=== PATIENT | male | born 1940 | race Caucasian/White ===

== ENCOUNTER → 2020-06-27 11:42 | Outpatient (BNVA) | payer MEDICARE, SELFPAY | PROVIDERS: PCP Internal Medicine; Referring Provider Internal Medicine; Visit Provider Internal Medicine Endocrinology, Diabetes & Metabolism | DX: E21.0 Primary hyperparathyroidism (principal); E04.2 Nontoxic multinodular goiter; M85.859 Other specified disorders of bone density and structure, unspecified thigh; Z79.899 Other long term (current) drug therapy | CPT/HCPCS: 99214 ==

== ENCOUNTER → 2020-09-05 09:03 | Outpatient (BNVA) | payer MEDICARE, SELFPAY | PROVIDERS: PCP Internal Medicine; Visit Provider Internal Medicine Endocrinology, Diabetes & Metabolism | DX: Z13.89 Encounter for screening for other disorder (principal) | CPT/HCPCS: Q3014 ==

== ENCOUNTER → 2020-10-03 10:14 | Outpatient (BNVA) | payer MEDICARE, SELFPAY | PROVIDERS: PCP Internal Medicine; Visit Provider Orthopaedic Surgery | DX: Z47.1 Aftercare following joint replacement surgery (principal); Z96.652 Presence of left artificial knee joint | CPT/HCPCS: 99212 ==

== ENCOUNTER → 2020-12-13 08:01 | Outpatient (BNVA) | payer MEDICARE, SELFPAY | PROVIDERS: PCP Internal Medicine; Visit Provider Internal Medicine Endocrinology, Diabetes & Metabolism | DX: E21.0 Primary hyperparathyroidism (principal); E04.2 Nontoxic multinodular goiter; M85.80 Other specified disorders of bone density and structure, unspecified site | CPT/HCPCS: 99212 ==

== ENCOUNTER 2020-12-13 09:05 | Outpatient (REF) | payer MEDICARE, SELFPAY ==
[2020-12-13 10:46] LABS: Alanine Aminotransferase 21 U/L (0-40); Albumin Level 4.3 g/dL (3.5-5.0); Alkaline Phosphatase 75 U/L (39-117); Anion Gap 15 (12-20); Aspartate Amino Transferase 21 U/L (5-37); Bilirubin Total 0.5 mg/dL (0.0-1.0); Blood Urea Nitrogen 30 mg/dL (9-16); Calcium 9.1 mg/dL (8.4-10.2); Carbon Dioxide 26 mmol/L (22-29); Chloride 105 mmol/L (96-108); Estimated Glomerular Filt Rate > 60; Glucose Fasting 87 mg/dL (60-99); Magnesium 2.1 mg/dL (1.6-2.6); Phosphorus 3.7 mg/dL (2.7-4.5); Potassium 4.8 mmol/L (3.3-5.1); Sodium 141 mmol/L (135-145); Total Protein 6.6 g/dL (6.5-8.0)
[2020-12-13 11:08] LABS: Vitamin D 25-OH Total 45.8 ng/mL (>30)
[2020-12-14 18:41] LABS: Calcium (PTHI) 9.1 mg/dL (8.6-10.3); PTHI 37 pg/mL (14-64)
== END 2020-12-13 09:06 | disposition home or self-care (01) ==
LOC: HO.10HDL 09:05
PROVIDERS: Visit Provider Internal Medicine Endocrinology, Diabetes & Metabolism
DX: E21.0 Primary hyperparathyroidism (principal)
CPT/HCPCS: 36415; 80053; 82306; 83735; 83970; 84100

== ENCOUNTER 2021-07-04 10:20 | Outpatient (REF) | payer MEDICARE, SELFPAY ==
[2021-07-04 14:31] LABS: Albumin Level 4.4 g/dL (3.5-5.0); Calcium 8.9 mg/dL (8.4-10.2); Magnesium 2.2 mg/dL (1.6-2.6); Phosphorus 3.8 mg/dL (2.7-4.5)
[2021-07-05 15:46] LABS: PTHI 26 pg/mL (14-64)
[2021-07-09 01:02] LABS: VITAMIN D (1,25 OH) D3 42 pg/mL; Vit D (1,25-Dihydroxy) Total 42 pg/mL (18-72); Vitamin D (1,25 OH) D2 <8 pg/mL
== END 2021-07-04 10:21 | disposition home or self-care (01) ==
LOC: HO.HMGCLDS 10:20
PROVIDERS: Internal Medicine Endocrinology, Diabetes & Metabolism; PCP Internal Medicine; Visit Provider Internal Medicine
DX: E21.0 Primary hyperparathyroidism (principal)
CPT/HCPCS: 36415; 82040; 82306; 82310; 82652; 83735; 83970; 84100

== ENCOUNTER → 2021-08-23 14:24 | Outpatient (BNVA) | payer MEDICARE, SELFPAY | PROVIDERS: PCP Internal Medicine; Visit Provider Internal Medicine | DX: E04.2 Nontoxic multinodular goiter (principal); E21.0 Primary hyperparathyroidism; E55.9 Vitamin D deficiency, unspecified; M85.80 Other specified disorders of bone density and structure, unspecified site | CPT/HCPCS: 99212 ==

== ENCOUNTER 2021-09-20 08:57 | Outpatient (REF) | payer MEDICARE, SELFPAY ==
--- NOTE | ~2021-09-20 | US_ITS ---
EXAMINATION: US THYROID CLINICAL INFORMATION: Nontoxic multinodular goiter. COMPARISON: Thyroid ultrasound 04/13/2019. TECHNIQUE: Linear transducer grayscale and color Doppler examination with attention to the region of the thyroid. FINDINGS: SIZE: Measurements of the thyroid lobes and nodules are given in sagittal, anteroposterior and transverse dimensions respectively. Right Thyroid Lobe: 4.5 x 1.2 x 1.2 cm, volume 3.4 mL. Previously 4.8 x 1.9 x 1.6 cm, volume 7.2 mL. Parenchyma: The gland echotexture is heterogeneous. Thyroid vascularity is normal. Left Thyroid Lobe: 4.8 x 1.8 x 1.3 cm, volume 4.9 mL. Previously 5.0 x 1.8 x 1.6 cm, volume 7.7 mL. Parenchyma: The gland echotexture is heterogeneous. Thyroid vascularity is normal. Isthmus: 0.6 cm in maximum AP dimension. Previously 0.7 cm. Estimated total number of nodules greater than or equal to 1 cm: 0. Cod Clerk nodules are described as follows: 1. Location: Right mid pole. Size: 0.9 x 0.4 x 0.7 cm, volume 0.14 mL. Previously: Not documented. Nodule characteristics: Composition: Spongiform (0). ACR TI-RADS total points: 0 ACR TI-RADS category: 1 2. Location: Right lower pole. Size: 0.9 x 0.7 x 0.9 cm, volume 0.30 mL. Previously: Not documented. Nodule characteristics: Composition: Spongiform (0). ACR TI-RADS total points: 0 ACR TI-RADS category: 1 3. Location: Left mid pole. Size: 0.5 x 0.4 x 0.3 cm, volume 0.04 mL. Previously: 0.4 x 0.4 x 0.3 cm, volume 0.03 mL. Nodule characteristics: Composition: Cystic(0). ACR TI-RADS total points: 0 ACR TI-RADS category: 1 4. Location: Left lower pole. Size: 0.5 x 0.7 x 0.5 cm, volume 0.08 mL. Previously: 0.4 x 0.3 x 0.5 cm, volume 0.03 mL. Nodule characteristics: Composition: Cystic(0). ACR TI-RADS total points: 0 ACR TI-RADS category: 1 NODES: No lymphadenopathy is seen in the tissue surrounding the thyroid gland. US/US thyroid IMPRESSION: Once again some scattered areas of nodularity which are described above. Some are seen previously while others are new. Some minimally increased. ACR TI-RADS RECOMMENDATION REFERENCE: Ultrasound-guided fine-needle aspiration, followup ultrasound, no further follow up. * TR1 (0 point) and TR 2 (2 points): No FNA or follow up * TR3 (3 points): FNA if more than or equal to 2.5 cm in maximum dimension, followup ultrasound in 1, 3 and 5 years if 1.5 to 2.4 cm in maximum dimension. * TR4 (4-6 points): FNA if more than or equal to 1.5 cm in maximum dimension, followup ultrasound in 1, 2, 3 and 5 years if 1 to 1.4 cm in maximum dimension. * TR5 (more than or equal to 7 points): FNA if more than or equal to 1 cm in maximum dimension, followup ultrasound every year for 5 years if 0.5 to 0.9 cm in maximum dimension. * TR3, TR4 or TR5 nodules that are below the size threshold for follow up receive no follow up.
--- NOTE | ~2021-09-20 | MM_ITS ---
EXAMINATION: BONE DENSITOMETRY CLINICAL INDICATION: Primary hyperparathyroidism. COMPARISON: Baseline BD dated 04/09/2019. TECHNIQUE: Using a [employer] DXA System (software version: 13.1) manufactured by [employer], dual-energy x-ray absorptiometry was performed of the lumbar spine, left hip, and left forearm radius 33%. The images are of good technical quality. Summary results are attached. FINDINGS: AP SPINE L1-L4: Current: BMD 1.306 g/cm2, Z-score 0.8, T-score 0.7, normal, 2.9% decrease from baseline (<5% change is not significant). Baseline: BMD 1.345 g/cm2. LEFT FEMUR, NECK: Current: BMD 0.704 g/cm2, Z-score -1.7, T-score -2.8, osteoporosis. Baseline: BMD 0.848 g/cm2. LEFT FEMUR, TOTAL: Current: BMD 0.840 g/cm2, Z-score -1.0, T-score -1.8, osteopenia, 12.6% decrease from baseline (<5% change is not significant). Baseline: BMD 0.961 g/cm2. LEFT FOREARM RADIUS 33%: BMD 0.921 g/cm2, Z-score 0.5, T-score -0.7, normal, 2.8% increase from baseline (<5% change is not significant). Baseline: BMD 0.896 g/cm2. IDENTIFIED RISK FACTORS: Hyperparathyroidism, history of fracture (adult). HISTORY OF FRACTURE: Other. MEDICATIONS: Calcium supplements or multivitamin, vitamin D. MM/XR DEXA appendicular skeleton IMPRESSION: 1. DIAGNOSIS: Osteoporosis based on the lowest T-score value of -2.8 in the femoral neck applying World Health Organization criteria. 2. 10-YEAR FRACTURE RISK PREDICTION, FRAX: Major osteoporotic fracture (clinical spine, forearm, hip or shoulder) 16.4%. Hip fracture 6.8%. 3. Treatment Recommendations: NOF guidelines recommend consideration for treatment in postmenopausal women and men age 50 and older presenting with the following: -A hip or vertebral (clinical or morphometric) fracture. -T-score less than or equal to -2.5 at the femoral neck or spine after appropriate evaluation to exclude secondary causes. -Low bone mass at the hip or spine and a 10-year fracture probability by FRAX of greater than or equal to 3% for hip fracture or greater than or equal to 20% for major osteoporotic fracture based on the [place] adapted WHO algorithm. 4. Other Recommendations: All treatment decisions require clinical judgment and consideration of individual patient factors, including patient preferences, comorbidities, previous drug use, risk factors not captured in the FRAX model (e.g. frailty, falls, vitamin D deficiency, increased bone turnover, interval significant decline in bone density) and possible under or overestimation of fracture risk by FRAX. Additional medical evaluation for secondary cause of low bone mineral density may be appropriate. FUTURE SCAN RECOMMENDATION: People with diagnosed cases of osteoporosis or at high risk for fracture should have regular bone mineral density tests. For patients eligible for Medicare, routine testing is allowed once every 2 years. The testing frequency can be increased to one year for patients who have rapidly progressing disease, those who are receiving or discontinuing medical therapy to restore bone mass, or have additional risk factors.
== END 2021-09-20 08:58 | disposition home or self-care (01) ==
LOC: HO.US 08:57
PROVIDERS: PCP Internal Medicine; Visit Provider Internal Medicine
DX: Z13.820 Encounter for screening for osteoporosis (principal); E21.0 Primary hyperparathyroidism; E04.2 Nontoxic multinodular goiter; Z79.899 Other long term (current) drug therapy
CPT/HCPCS: 76536; 77081

== ENCOUNTER 2022-02-27 12:00 | Outpatient (REF) | payer MEDICARE, SELFPAY ==
[2022-02-27 13:52] LABS: Hematocrit 44.7 % (42.0-52.0); Hemoglobin 15.5 g/dl (14.0-18.0); Mean Corpuscular HGB Conc 34.7 g/dl (31.0-36.0); Mean Corpuscular Hemoglobin 32.2 pg (27.0-33.0); Mean Corpuscular Volume 92.9 fL (80.0-98.0); Platelet Count 221 X10*3/uL (160-400); Red Blood Count 4.81 X10*6/uL (4.60-5.80); Red Cell Distribution Width 12.8 % (11.0-16.0); White Blood Count 5.7 X10*3/uL (4.8-10.8)
[2022-02-27 14:02] LABS: Alanine Aminotransferase 22 U/L (0-40); Albumin Level 4.5 g/dL (3.5-5.0); Alkaline Phosphatase 61 U/L (39-117); Anion Gap 15 (12-20); Aspartate Amino Transferase 23 U/L (5-37); Bilirubin Total 0.6 mg/dL (0.0-1.0); Blood Urea Nitrogen 23 mg/dL (9-16); Carbon Dioxide 24 mmol/L (22-29); Chloride 105 mmol/L (96-108); Estimated Glomerular Filt Rate > 60; Glucose Random 86 mg/dL (60-115); Phosphorus 3.6 mg/dL (2.7-4.5); Potassium 4.6 mmol/L (3.3-5.1); Sodium 139 mmol/L (135-145); Total Protein 6.8 g/dL (6.5-8.0)
[2022-02-27 14:24] LABS: Thyroid Stimulating Hormone 1.88 uIU/mL (0.32-4.0)
[2022-02-27 14:25] LABS: Free T4 (Free Thyroxine) 0.95 ng/dL (0.71-1.85); Vitamin D 25-OH Total 51.1 ng/mL (>30)
== END 2022-02-27 12:01 | disposition home or self-care (01) ==
LOC: HO.HMGCLDS 12:00
PROVIDERS: Internal Medicine; PCP Internal Medicine; Visit Provider Emergency Medicine
DX: E04.2 Nontoxic multinodular goiter (principal); R53.83 Other fatigue; E21.0 Primary hyperparathyroidism; E55.9 Vitamin D deficiency, unspecified
CPT/HCPCS: 36415; 80053; 82306; 84100; 84439; 84443; 85027

== ENCOUNTER 2022-04-30 15:05 | Outpatient (REF) | payer MEDICARE, SELFPAY ==
[2022-04-30 16:04] LABS: Alanine Aminotransferase 14 U/L (0-40); Albumin Level 4.4 g/dL (3.5-5.0); Alkaline Phosphatase 65 U/L (39-117); Anion Gap 14 (12-20); Aspartate Amino Transferase 16 U/L (5-37); Bilirubin Total 0.5 mg/dL (0.0-1.0); Blood Urea Nitrogen 23 mg/dL (9-16); Calcium 9.2 mg/dL (8.4-10.2); Carbon Dioxide 27 mmol/L (22-29); Chloride 105 mmol/L (96-108); Estimated Glomerular Filt Rate > 60; Glucose Random 115 mg/dL (60-115); Phosphorus 3.9 mg/dL (2.7-4.5); Potassium 4.6 mmol/L (3.3-5.1); Sodium 141 mmol/L (135-145); Total Protein 6.8 g/dL (6.5-8.0)
[2022-04-30 16:25] LABS: Thyroid Stimulating Hormone 1.87 uIU/mL (0.32-4.0); Vitamin D 25-OH Total 51.8 ng/mL (>30)
[2022-05-01 12:48] LABS: Calcium (PTHI) 9.2 mg/dL (8.6-10.3); PTHI 41 pg/mL (16-77)
== END 2022-04-30 15:06 | disposition home or self-care (01) ==
LOC: HO.LAB 15:05
PROVIDERS: PCP Internal Medicine; Visit Provider Internal Medicine
DX: E21.0 Primary hyperparathyroidism (principal); E04.2 Nontoxic multinodular goiter; M81.0 Age-related osteoporosis without current pathological fracture; E55.9 Vitamin D deficiency, unspecified
CPT/HCPCS: 36415; 80053; 82306; 83970; 84100; 84443; 99212

== ENCOUNTER 2022-10-02 13:50 | Outpatient (REF) | payer MEDICARE, SELFPAY ==
--- NOTE | ~2022-10-02 | US_ITS ---
EXAMINATION: US THYROID CLINICAL INFORMATION: Nontoxic multinodular goiter. COMPARISON: Ultrasound soft tissue head/neck thyroid dated 09/20/2021 and 04/13/2019. TECHNIQUE: Linear transducer grayscale and color Doppler examination with attention to the region of the thyroid. FINDINGS: SIZE: Measurements of the thyroid lobes and nodules are given in sagittal, anteroposterior and transverse dimensions respectively. Right Thyroid Lobe: 4.9 x 1.3 x 1.3 cm, volume 4.2 mL. Previously 4.5 x 1.2 x 1.2 cm, volume 3.4 mL. Parenchyma: The gland echotexture is homogeneous. Thyroid vascularity is normal. Left Thyroid Lobe: 4.2 x 1.8 x 1.0 cm, volume 3.8 mL. Previously 4.0 x 1.8 x 1.3 cm, volume 4.9 mL. Parenchyma: The gland echotexture is homogeneous. Thyroid vascularity is normal. Isthmus: 0.65 cm in maximum AP dimension. Previously 0.56 cm. Estimated total number of nodules greater than or equal to 1 cm: 0. Agronomy Supervisor nodules are described as follows: 1. Location: Right mid. Size: 0.67 x 0.59 x 0.75 cm, volume 0.16 mL. Previously: 0.92 x 0.43 x 0.68 cm, volume 0.14 mL. Nodule characteristics: Composition: Spongiform (0). Echogenicity: Anechoic (0). Shape: Not taller than wide (0). Margins: Smooth (0). Echogenic Foci: None (0). ACR TI-RADS total points: 0 Previous: 0 ACR TI-RADS category: 1 Previous: 1 Significant change in size (>/= 20% in 2 dimensions and minimal increase of 2 mm or 50% or greater increase in volume): Change in features: No Change in ACR TI-RADS risk category: No 2. Location: Left mid. Size: 0.55 x 0.50 x 0.34 cm, volume 0.05 mL. Previously: 0.53 x 0.40 x 0.33 cm, volume 0.04 mL. Nodule characteristics: Composition: Cystic(0). ACR TI-RADS total points: 0 Previous: 0 ACR TI-RADS category: 1 Previous: 1 Significant change in size (>/= 20% in 2 dimensions and minimal increase of 2 mm or 50% or greater increase in volume): Change in features: No Change in ACR TI-RADS risk category: No 3. Location: Left inferior. Size: 0.60 x 0.57 x 0.62 cm, volume 0.11 mL. Previously: 0.51 x 0.67 x 0.45 cm, volume 0.03 mL. Nodule characteristics: Composition: Cystic(0). Echogenicity: Absent Shape: 0 Margins: Ill-defined (0). Echogenic Foci: None (0). ACR TI-RADS total points: 0 Previous: 0 ACR TI-RADS category: 1 Previous: 1 Significant change in size (>/= 20% in 2 dimensions and minimal increase of 2 mm or 50% or greater increase in volume): Change in features: No Change in ACR TI-RADS risk category: No NODES: No lymphadenopathy is seen in the tissue surrounding the thyroid gland. US/US thyroid IMPRESSION: 1. No suspicious lesions. 2. TR1 (0 point) and TR 2 (2 points): 3. TR4 (4-6 points): FNA if more than or equal to 1.5 cm in maximum dimension, followup ultrasound in 1, 2, 3 and 5 years if 1 to 1.4 cm in maximum dimension. 4. TR5 (more than or equal to 7 points): FNA if more than or equal to 1 cm in maximum dimension, followup ultrasound every year for 5 years if 0.5 to 0.9 cm in maximum dimension.
== END 2022-10-02 13:51 | disposition home or self-care (01) ==
LOC: HO.HMGCX 13:50
PROVIDERS: PCP Internal Medicine; Visit Provider Internal Medicine
DX: E04.2 Nontoxic multinodular goiter (principal)
CPT/HCPCS: 76536

== ENCOUNTER 2023-01-18 15:30 | Outpatient (REF) | payer MEDICARE, SELFPAY ==
[2023-01-18 18:13] LABS: Alanine Aminotransferase 20 U/L (0-40); Albumin Level 4.2 g/dL (3.5-5.0); Alkaline Phosphatase 70 U/L (39-117); Anion Gap 14 (12-20); Aspartate Amino Transferase 21 U/L (5-37); Bilirubin Total 0.4 mg/dL (0.0-1.0); Blood Urea Nitrogen 21 mg/dL (9-16); Carbon Dioxide 28 mmol/L (22-29); Chloride 103 mmol/L (96-108); Estimated Glomerular Filt Rate > 60; Glucose Random 74 mg/dL (60-115); Phosphorus 4.1 mg/dL (2.7-4.5); Potassium 4.8 mmol/L (3.3-5.1); Sodium 140 mmol/L (135-145); Total Protein 6.3 g/dL (6.5-8.0)
[2023-01-18 18:30] LABS: Free T4 (Free Thyroxine) 0.91 ng/dL (0.71-1.85); Thyroid Stimulating Hormone 2.93 uIU/mL (0.32-4.0); Vitamin D 25-OH Total 59.9 ng/mL (>30)
[2023-01-21 15:17] LABS: Calcium (PTHI) 9.1 mg/dL (8.6-10.3); PTHI 15 pg/mL (16-77)
== END 2023-01-18 15:31 | disposition home or self-care (01) ==
LOC: HO.LAB 15:30
PROVIDERS: PCP Internal Medicine; Visit Provider Internal Medicine
DX: E21.0 Primary hyperparathyroidism (principal); E55.9 Vitamin D deficiency, unspecified; E04.2 Nontoxic multinodular goiter
CPT/HCPCS: 36415; 80053; 82306; 83970; 84100; 84439; 84443

== ENCOUNTER → 2023-01-21 13:59 | Outpatient (BNVA) | payer MEDICARE, SELFPAY | PROVIDERS: PCP Internal Medicine; Visit Provider Internal Medicine | DX: E04.2 Nontoxic multinodular goiter (principal); E21.0 Primary hyperparathyroidism; M81.0 Age-related osteoporosis without current pathological fracture; E55.9 Vitamin D deficiency, unspecified | CPT/HCPCS: 99212 ==

== ENCOUNTER 2023-02-02 12:07 | Outpatient (REF) | payer MEDICARE, SELFPAY ==
[2023-02-02 14:08] LABS: Thyroid Stimulating Hormone 2.12 uIU/mL (0.32-4.0)
[2023-02-08 16:58] LABS: Vitamin D 25-OH, D2 <4 ng/mL; Vitamin D 25-OH, D3 49 ng/mL; Vitamin D 25-OH, Total 49 ng/mL (30-100)
[2023-02-08 21:03] LABS: Testosterone, Free 70.1 pg/mL (30.0-135.0); Testosterone, Total 626 ng/dL (250-1100)
[2023-02-13 17:03] LABS: Parathyroid Hormone Related Pr 6 pg/mL (11-20)
== END 2023-02-02 12:08 | disposition home or self-care (01) ==
LOC: HO.HMGCLDS 12:07
PROVIDERS: PCP Internal Medicine; Visit Provider Physician Assistant Medical
DX: R53.83 Other fatigue (principal)
CPT/HCPCS: 36415; 82306; 83519; 84402; 84403; 84443

== ENCOUNTER 2023-03-01 09:59 | Outpatient (REF) | payer MEDICARE, SELFPAY ==
--- NOTE | ~2023-03-01 | US_ITS ---
EXAMINATION: US RETROPERITONEAL LIMITED (RENAL ONLY) CLINICAL INFORMATION: Cyst of kidney, acquired. COMPARISON: None available. TECHNIQUE: Real-time imaging of the kidneys. FINDINGS: RIGHT KIDNEY: 12.9 x 7.0 x 6.3 cm (SAG x AP x TRV). The kidney is normal in size, contour, and echogenicity. Renal cortical thickness is normal. No renal calculi or hydronephrosis. A few simple appearing cysts are noted within the right kidney for which no follow-up imaging is usually required, the largest measuring approximately 4.4 cm. LEFT KIDNEY: 13.2 x 5.8 x 6.1 cm (SAG x AP x TRV). The kidney is normal in size, contour, and echogenicity. Renal cortical thickness is normal. No renal calculi or hydronephrosis. A few simple appearing cysts are noted within the left kidney for carcinoma follow-up imaging is usually required, the largest measuring approximately 5.3 cm. US/US renal BI IMPRESSION: 1. Bilateral renal cysts. 2. No renal calculi or hydronephrosis of either kidney.
== END 2023-03-01 10:00 | disposition home or self-care (01) ==
LOC: HO.HMGCX 09:59
PROVIDERS: PCP Internal Medicine; Visit Provider Internal Medicine
DX: N28.1 Cyst of kidney, acquired (principal)
CPT/HCPCS: 76775

== ENCOUNTER → 2023-03-14 15:14 | Outpatient (BNVA) | payer MEDICARE, SELFPAY | PROVIDERS: PCP Internal Medicine; Visit Provider Surgery | DX: K42.9 Umbilical hernia without obstruction or gangrene (principal) | CPT/HCPCS: 99202 ==

== ENCOUNTER 2023-03-22 09:21 | Day surgery (SDC) | payer MEDICARE, SELFPAY ==
--- NOTE | 2023-03-21 09:10 | P.CONAN_ITS ---
Documented by User: Maricarmen Buckley NP 03/21/23 09:12 HPI - Anesthesia Eval Consult details Narrative: 82yo M for Hernia Repair Umbilical PMFSH Active Problems Active Problems: All Active Problems (Updated 02/19/23 @ 11:53 by Marilia Agarwal MD) Renal cysts, acquired, bilateral (Acute) Umbilical hernia (Acute) Osteoporosis (Acute) Vitamin D deficiency (Acute) Fatigue (Acute) Vision changes (Acute) Skin cancer (Acute) Hypertension (Acute) Primary hyperparathyroidism (Acute) Osteopenia (Acute) Non-toxic multinodular goiter (Acute) Past Medical History Medical History Fatigue History of prostate cancer Hypertension Non-toxic multinodular goiter Osteopenia Osteoporosis Primary hyperparathyroidism Skin cancer Vitamin D deficiency Family History Family History Father No problems noted. Mother No problems noted. Surgical History Surgical History History of parathyroid surgery Hx of left knee surgery Hx of tonsillectomy Hx of tooth extraction Status post surgical removal of malignant neoplasm of skin Social History Social History Housing: House Alcohol intake: never Patient Tobacco Use Status: Never used Tobacco e-Cigarette/Vaping Use: Never Used Are you DNR?: No Advance Directives: No Advance Directives Information Provided: Yes Nutrition Risks: No Nutritional Risk Current occupational status: retired Cognitive needs: No Hearing needs: Yes Vision needs: No Meds Allergies Allergy/AdvReac Type Severity Reaction Status Date / Time No Known Allergies Allergy Verified 03/14/23 15:22 [No Known Allergies*] Home Medications Medication Instructions Recorded Confirmed Last Taken Type glucosamine sulfate 500 mg tablet 500 mg PO DAILY 08/23/21 01/21/23 Unknown History (Glucosamine) vitamin C-vitamin E 500 mg-400 cap PO 08/23/21 01/21/23 Unknown History unit capsule calcium citrate 250 mg PO DAILY 02/27/22 01/21/23 Unknown History flaxseed oil 1,000 mg capsule 1,000 mg PO DAILY 02/27/22 01/21/23 Unknown History ([place]-3 Flaxseed Oil) multivitamin 1 tab PO DAILY 02/27/22 01/21/23 Unknown History vitamins A,C,Z-vfho-sxbrsh 4,296 1 cap PO BID 02/27/22 01/21/23 Unknown History mcg-226 mg-90 mg capsule (PreserVision AREDS) Exam Exam Date and Time: March 21, 2023 0910 Pertinent Lab Results Pertinent Lab Results: Laboratory Tests 02/27/22 01/18/23 12:11 15:43 WBC 5.7 Hgb 15.5 Hct 44.7 Plt Count 221 Sodium 140 Potassium 4.8 Chloride 103 Carbon Dioxide 28 BUN 21 H Creatinine 0.87 Assessment and Plan Assessment Anesthesia Assessment: Chart Reviewed Documented by User: Shayy Romero MD 03/22/23 10:39 [facility] Past Medical History Medical History Fatigue History of prostate cancer Hypertension Non-toxic multinodular goiter Osteopenia Osteoporosis Primary hyperparathyroidism Skin cancer Vitamin D deficiency Family History Family History Father No problems noted. Mother No problems noted. Family history of problems with anesthesia: No Surgical History Surgical History History of parathyroid surgery Hx of left knee surgery Hx of tonsillectomy Hx of tooth extraction Status post surgical removal of malignant neoplasm of skin History of Problems with Anesthesia: No Social History Social History Housing: House Alcohol intake: never Patient Tobacco Use Status: Never used Tobacco e-Cigarette/Vaping Use: Never Used Are you DNR?: No Advance Directives: No Advance Directives Information Provided: Yes Nutrition Risks: No Nutritional Risk Current occupational status: retired Cognitive needs: No Hearing needs: Yes Vision needs: No Meds Allergies Allergy/AdvReac Type Severity Reaction Status Date / Time No Known Allergies Allergy Verified 03/14/23 15:22 [No Known Allergies*] Home Medications Medication Instructions Recorded Confirmed Last Taken Type glucosamine sulfate 500 mg tablet 500 mg PO DAILY 08/23/21 01/21/23 Unknown History (Glucosamine) vitamin C-vitamin E 500 mg-400 cap PO 08/23/21 01/21/23 Unknown History unit capsule calcium citrate 250 mg PO DAILY 02/27/22 01/21/23 Unknown History flaxseed oil 1,000 mg capsule 1,000 mg PO DAILY 02/27/22 01/21/23 Unknown History ([place]-3 Flaxseed Oil) multivitamin 1 tab PO DAILY 02/27/22 01/21/23 Unknown History vitamins A,C,C-utnd-ypoata 4,296 1 cap PO BID 02/27/22 01/21/23 Unknown History mcg-226 mg-90 mg capsule (PreserVision AREDS) Exam Airway Mallampati Class: II TM Dist: >3cm Neck ROM: Full Heart: rrr Lungs: cta Assessment and Plan Assessment Anesthesia Assessment: Anesthesia Plan Discussed Final Anesthetic Review Family History of Problems with Anesthesia: No History of Problems with Anesthesia: No NPO: Yes ASA Class: III Final Preanesthetic Review: No Changes in Pt Med Stat, Meds/Allgs Chart Reviewed, Consent Obtained/Reviewed and Anes Risks/Benef Reviewed Patient Risk: Low Procedure Risk: Low Anesthetic Plan Anesthetic Plan: MAC: Disposition: Standard PACU
--- NOTE | 2023-03-21 11:25 | MHC.SHP ---
Pre-Procedural Eval Section A Date of Service: 03/21/23 The patient is an INPATIENT: No Changes since office visit: No Cold of Flu in the past 2 weeks, No New Medical Problems, No Changes in Medication and No Patient answered all questions The History & Physical has been completed within 30 days and I have reviewed it.: Yes Section B Chief Complaint: Umbilical hernia without obstruction or gangrene Allergies: Allergies Allergy/AdvReac Type Severity Reaction Status Date / Time No Known Allergies Allergy Verified 03/14/23 15:22 [No Known Allergies*] Plan I have reviewed the history and physical and performed a pertinent physical examination on my patient. No changes have occurred unless specified. Time Spent With Patient Time: Total time managing care of this patient today ____ minutes.
--- NOTE | 2023-03-22 10:02 | PC.NURSE ---
dr. bashir and anesthesia aware that patient did take his fish oil this morning. okay to proceed per surgeon.
[2023-03-22] MEDS: Lactated Ringers 1,000 ML 100 ML IVCONT (10:10)
[2023-03-22 10:23] VITALS: BP 168/81; PULSE 59; RESP 18; TEMP 36.6; O2SAT 96; BMI 31.0
--- NOTE | 2023-03-22 11:23 | W.PM.OPN ---
Operative Note Operative Note Date of Service: 03/22/23 Narrative: Preoperative diagnosis: Grade omental contents. Defect measured approximately Incarcerated umbilical hernia Postop diagnosis: Same. Procedure: Incarcerated umbilical her repair incarcerated umbilical hernia with Bard mesh Surgeon: [] Dain Annealing Oven Operator: [] ubaldo Bhakta Type of Anesthesia: [] MAC Indication for surgery: [] Approximately 3 cm incarcerated umbilical hernia with omental contents. Findings: [] Patient is brought to the operating room, placed on operative table in the supine position, after adequate level of MAC anesthesia was induced, the incision site was infiltrated with 0.5% Marcaine/1% lidocaine and a small supraumbilical curvilinear incision made and carried down through skin, subcutaneous tissue, down to hernia sac. The sac was dissected off the posterior aspect of the umbilicus and dissection down to fascia . Hernia sac was opened and incarcerated omental contents along with the sac were amputated using Bovie. Fascia margins were circumferentially cleared and a Bard mesh placed in the defect. Superficially of the mesh was circumferentially sutured to the surrounding fascia using interrupted 0 Ethibond suture. At completion the procedure, mesh was in good position with no tension and no gaps. The wound Was irrigated, secured hemostasis, and closed in the following manner; posterior aspect of the umbilicus was tacked to the wound floor using interrupted 3-0 Vicryl sutures. Skin was closed using interrupted inverted dermal 3-0 Vicryl sutures followed by Steri-Strips and sterile dressings. Sponge, needle, and instrument counts reported correct. Patient tolerated the procedure well and emerged anesthesia stable condition. EBL minimal
[2023-03-22 11:24] VITALS: BP 102/64; PULSE 48; RESP 16; TEMP 36.6; O2SAT 92
[2023-03-22 11:39] VITALS: BP 126/68; PULSE 65; RESP 16; O2SAT 97
[2023-03-22 11:50] VITALS: BP 154/75; PULSE 55; RESP 16; TEMP 36.3; O2SAT 96
== END 2023-03-22 12:40 | disposition home or self-care (01) ==
PROVIDERS: PCP Internal Medicine; Visit Provider Surgery
PROC: (CPT 49592; principal; 2023-03-22 11:30)
DX: K42.0 Umbilical hernia with obstruction, without gangrene (principal); I10 Essential (primary) hypertension; R53.83 Other fatigue; M81.0 Age-related osteoporosis without current pathological fracture; Z85.46 Personal history of malignant neoplasm of prostate; Z85.828 Personal history of other malignant neoplasm of skin; Z79.899 Other long term (current) drug therapy
CPT/HCPCS: 49592; 88302; C1781; J0690; J2250; J3010

== ENCOUNTER → 2023-03-29 08:58 | Outpatient (BNVA) | payer MEDICARE, SELFPAY | PROVIDERS: PCP Internal Medicine; Visit Provider Surgery ==

== ENCOUNTER 2023-04-19 08:15 | Outpatient (AMB) | payer MEDICARE, SELFPAY ==
[2023-04-19 08:16] VITALS: BP 144/72; PULSE 59; O2SAT 97; BMI 31.3
--- NOTE | 2023-04-19 08:16 | MHC.PC.OV ---
Vital Signs 04/19/23 08:16 Height 5 ft 8 in Weight 206 lb BMI 31.3 BP 144/72 H Blood Pressure Location Rt brachial Position Sitting Pulse 59 Pulse Source Pulse Oximeter Pulse Oximetry (%) 97 Oxygen Delivery Method Room Air Intake Visit Reasons: Discuss medical Issue's Intake Note: Pt is here today for a sick visit. Pt c/o severe fatique for a year now and its getting worst. Allergies No Known Allergies [No Known Allergies*] Allergy (Verified 04/19/23 08:20) Medication List - Last Reconciled 04/19/23 by Marilia Agarwal MD amlodipine 10 mg PO DAILY calcium citrate 250 mg PO DAILY cholecalciferol (vitamin D3) 50 mcg PO DAILY 30 days flaxseed oil ([place]-3 Flaxseed Oil) 1,000 mg PO DAILY glucosamine sulfate (Glucosamine) 500 mg PO DAILY multivitamin 1 tab PO DAILY [tumeric PO] valsartan 160 mg PO DAILY vitamin C-vitamin E 500-400 mg-unit caps PO vitamins A,C,I-nujj-irwiuj 4,296 mcg-226 mg-90 mg (PreserVision AREDS) 1 cap PO BID Tobacco use date assessed: 04/19/23 Dental Screening Dental Screen Date: 04/19/23 Did you have a dental visit in the last 12 months?: Yes Did you have a dental problem in the last 6 months where you did not have access to dental care?: No Was dental information given to patient?: Patient has dentist HPI Discuss medical Issue's HPI Details Pt presents complaining of persistent fatigue and lack of energy. Patient physical activity has decreased significantly in the last year. Patient gives up a couple glasses 3 times a week but used to exercise every day. Patient denies exercise induced chest pain palpitations, PND or orthopnea, weight loss, change in appetite, sleep pattern, depression, night sweats, GI or complaints. [facility] Medical History Fatigue History of prostate cancer Hypertension Non-toxic multinodular goiter Osteopenia Osteoporosis Primary hyperparathyroidism Skin cancer Vitamin D deficiency Surgical History History of parathyroid surgery Hx of left knee surgery Hx of tonsillectomy Hx of tooth extraction Status post surgical removal of malignant neoplasm of skin Umbilical hernia (03/22/23) Family History Father Hypertension Lung cancer Mother No problems noted. Brother Mental health disorder Social History Housing: House Alcohol intake: never Patient Tobacco Use Status: Never used Tobacco e-Cigarette/Vaping Use: Never Used Current occupational status: retired Cognitive needs: No Hearing needs: Yes Vision needs: No Questionnaire PHQ-9 Over the last 2 weeks, how often have you been bothered by any of the following problems? 1. Little interest or pleasure in doing things: not at all 2. Feeling down, depressed, or hopeless: not at all 3. Trouble falling or staying asleep, or sleeping too much: not at all 4. Feeling tired or having little energy: not at all 5. Poor appetite or overeating: not at all 6. Feeling bad about yourself - or that you are a failure or have let yourself or your family down: not at all 7. Trouble concentrating on things, such as reading the newspaper or watching television: not at all 8. Moving or speaking so slowly that other people could have noticed. Or the opposite - being so fidgety or restless that you have been moving around a lot more than usual: not at all 9. Thoughts that you would be better off or of hurting yourself in some way: not at all Total score: 0 Depression Screening Interpretation: Negative Source: Developed by Drs. Stevo Meadows, Rosie Kincaid, Jeremiah Chin and colleagues, with an educational mandy from [employer]. Thrive Questionnaire Date Thrive assessed: 04/19/23 I am a: Patient What is your living situation today?: I have a steady place to live Within the past 12 months, did the food you bought not last and you didn't have the money to get more?: Never true Within the past 12 months, did you worry whether your food would run out before you got money to buy more?: Never true Do you have trouble paying for medicines?: No Do you have trouble getting transportation to medical appointments?: No Do you have trouble paying your heating and electricity bill?: No Do you have trouble taking care of your child, family member or friend?: No Do you have trouble with day-to-day activities such as bathing, preparing meals, shopping, managing finances, etc.?: No Are you currently unemployed and looking for a job?: No Are you interested in more education?: No Please select the resources that you would like help with: None Currently or been in a relationship where the following occur: no concerns reported AUDIT C Alcohol Use Questionnaire (AUDIT-C) 1. How often do you have a drink containing alcohol?: Never 3. How often do you have six or more drinks on one occasion?: Never Total Score: 0 JERED-7 AMB Questionnaire JERED-7 Date JERED - 7 assessed: 04/19/23 Feeling nervous, anxious, or on edge: 0 = Not at all Not being able to stop or control worryin = Not at all Worrying too much about different things: 0 = Not at all Trouble relaxin = Not at all Being so restless that it is hard to sit still: 0 = Not at all Becoming easily annoyed or irritable: 0 = Not at all Feeling afraid as if something awful might happen: 0 = Not at all Total JERED-7 score (0-4 normal; 5-9 mild; 10-14 moderate; 15-21 severe): 0 Source: Developed by Drs. Stevo Meadows, Rosie Kincaid, Jeremiah Chin and colleagues, with an educational mandy from [employer]. Review of Systems Const All systems reviewed & are unremarkable except as noted in HPI and below Reports no additional complaints Eyes Reports no additional complaints ENT Reports no additional complaints Card Reports no additional complaints Resp Reports no additional complaints GI Reports no additional complaints Reports no additional complaints Physical exam (Primary Care) Vital Signs: Last Vital Signs Pulse 59 04/19/23 08:16 BP 144/72 H 04/19/23 08:16 Pulse Ox 97 04/19/23 08:16 Oxygen Delivery Method Room Air 04/19/23 08:16 BMI result Body Mass Index 31.3 Tobacco/Smoking Status: Tobacco use Status Tobacco use date assessed 04/19/23 04/19/23 08:27 Patient Tobacco Use Status Never used Tobacco 04/19/23 08:27 e-Cigarette/Vaping Use Never Used 04/19/23 08:27 PHQ-9: PHQ-9 Score PHQ-9: Total score 0 04/19/23 08:27 Depression Screening Interpretation: Negative Thrive Assessment: Date of Thrive Assessment Date Thrive assessed 04/19/23 04/19/23 08:27 Currently or been in a relationship where the following occur: no concerns reported Const General: no acute distress HENMT Head: Yes normal to inspection General nose exam: Normal external nose present Face and sinus: Yes normal facial exam Throat: Yes posterior oropharynx normal Eyes General: appearance normal, both eyes and all related structures Neck Neck: Yes no lymphadenopathy and Yes supple Resp Effort & Inspection: normal respiratory effort Auscultation: clear to auscultation bilaterally Cardio Rhythm: regular rhythm Heart sounds: S1 normal heart sound present and S2 normal heart sound present GI Inspection: Yes normal to inspection Palpation (GI): Soft to palpation Percussion: Yes normal to percussion Auscultation: normal bowel sounds Assessment and Plan Assessment & Plan (1) GIL (dyspnea on exertion): Code(s): R06.09 - Other forms of dyspnea Plan: Check labs including comprehensive panel CBC iron. check Echo and nuclear stress test (2) Fatigue: Code(s): R53.83 - Other fatigue Plan: see above (3) Hypertension: Code(s): I10 - Essential (primary) hypertension Plan: cont meds Orders: Orders CA stress test Today R06.09 - Other forms of dyspnea, R53.83 - Other fatigue CA echo transthoracic complete Today R06.09 - Other forms of dyspnea, R53.83 - Other fatigue Vitamin B12 and Folate Today R06.09 - Other forms of dyspnea, R53.83 - Other fatigue IRON PROFILE Today R06.09 - Other forms of dyspnea, R53.83 - Other fatigue Complete Blood Count Auto Diff Today R06.09 - Other forms of dyspnea, R53.83 - Other fatigue NM cardiolite stress test Today R06.09 - Other forms of dyspnea, R53.83 - Other fatigue XR chest 2V Today R06.09 - Other forms of dyspnea, R53.83 - Other fatigue Comprehensive Met. Panel Today R06.09 - Other forms of dyspnea, R53.83 - Other fatigue C Reactive Protein Today R06.09 - Other forms of dyspnea, R53.83 - Other fatigue Immunofixation Pnl, Serum Today R06.09 - Other forms of dyspnea, R53.83 - Other fatigue PSA,Total (Free>4and<10) Today R06.09 - Other forms of dyspnea, R53.83 - Other fatigue Protein Electrophoresis, Serum Today R06.09 - Other forms of dyspnea, R53.83 - Other fatigue Lyme IgG/IgM w/reflex to WB Today M25.50 - Pain in unspecified joint, R53.83 - Other fatigue Coding Level of Care Code Est Pt Level 4 (55368) Diagnoses GIL (dyspnea on exertion) R06.09 Fatigue R53.83 Hypertension I10
== END 2023-04-19 09:13 | disposition home or self-care (01) ==
PROVIDERS: PCP Internal Medicine; Visit Provider Internal Medicine
DX: R06.09 Other forms of dyspnea (principal); R53.83 Other fatigue; I10 Essential (primary) hypertension
CPT/HCPCS: 99214

== ENCOUNTER 2023-04-19 09:00 | Outpatient (REF) | payer MEDICARE, SELFPAY ==
--- NOTE | ~2023-04-19 | XR_ITS ---
EXAMINATION: XR CHEST CLINICAL INFORMATION: Dyspnea. COMPARISON: 09/14/2019 chest radiographs. TECHNIQUE: 2 views of the chest were obtained. FINDINGS: No significant abnormality is noted involving the heart, lungs, mediastinum, bony thorax or soft tissues. XR/XR chest 2V IMPRESSION: No acute cardiopulmonary process.
[2023-04-19 11:09] LABS: MANUAL DIFF FLAG NO
[2023-04-19 11:37] LABS: Basophils Percent Auto 0.4 % (0-2); Eosinophils Absolute Auto 0.1 X10*3/uL (0.0-0.4); Eosinophils Percent Auto 2.2 % (0-4); Hematocrit 42.8 % (42.0-52.0); Hemoglobin 14.8 g/dl (14.0-18.0); Imm Gran Pct Auto 1.9 % (0.0-0.4); Lymphocytes Absolute Auto 1.1 X10*3/uL (1.2-4.9); Lymphocytes Percent Auto 19.7 % (20-40); Mean Corpuscular HGB Conc 34.6 g/dl (31.0-36.0); Mean Corpuscular Hemoglobin 32.1 pg (27.0-33.0); Mean Corpuscular Volume 92.8 fL (80.0-98.0); Mean Platelet Volume 9.9 fL (9.4-12.4); Monocytes Absolute Auto 0.5 X10*3/uL (0.1-1.2); Neutrophils Absolute Auto 3.5 x10*3/uL (2.0-8.3); Neutrophils Percent Auto 65.8 % (45-73); Platelet Count 224 X10*3/uL (160-400); Red Blood Count 4.61 X10*6/uL (4.60-5.80); Red Cell Distribution Width 12.9 % (11.0-16.0); White Blood Count 5.4 X10*3/uL (4.8-10.8)
[2023-04-19 12:09] LABS: PSA,Total (Free>4and<10) < 0.10 ng/mL (0.00-4.00)
[2023-04-19 12:17] LABS: Alanine Aminotransferase 18 U/L (0-40); Albumin Level 4.2 g/dL (3.5-5.0); Alkaline Phosphatase 60 U/L (39-117); Anion Gap 18 (12-20); Aspartate Amino Transferase 19 U/L (5-37); Bilirubin Total 0.5 mg/dL (0.0-1.0); Blood Urea Nitrogen 26 mg/dL (9-16); C Reactive Protein 0.15 mg/dL (< or = 0.50); Calcium 9.5 mg/dL (8.4-10.2); Carbon Dioxide 21 mmol/L (22-29); Chloride 105 mmol/L (96-108); Estimated Glomerular Filt Rate > 60; Glucose Random 93 mg/dL (60-115); Iron 125 mcg/dL (45-160); Percent Iron Saturation 39 % (15-50); Potassium 4.8 mmol/L (3.3-5.1); Sodium 139 mmol/L (135-145); Total Iron Binding Capacity 317 mcg/dL (228-428); Total Protein 6.9 g/dL (6.5-8.0); Unsaturated Iron Binding 192 ug/dL
[2023-04-19 12:22] LABS: Folate 19.3 ng/mL (> or = 4.0); Vitamin B12 910 pg/mL (200-900)
[2023-04-21 17:28] LABS: Prot Elec - Alpha1 0.3 g/dL (0.2-0.3); Prot Elec - Alpha2 0.8 g/dL (0.5-0.9); Prot Elec - Beta 1 0.4 g/dL (0.4-0.6); Prot Elec - Beta 2 0.3 g/dL (0.2-0.5); Prot Elec - Gamma 0.5 g/dL (0.8-1.7); Prot Elec - Total Protein 6.4 g/dL (6.1-8.1)
[2023-04-22 18:17] LABS: Lyme Abs Screen <0.90 index
[2023-04-25 06:37] LABS: IgA 129 mg/dL (70-320); IgG 535 mg/dL (600-1540); IgM 59 mg/dL (50-300)
== END 2023-04-19 09:01 | disposition home or self-care (01) ==
LOC: HO.HMGCX 09:00
PROVIDERS: PCP Internal Medicine; Visit Provider Internal Medicine
DX: Z12.5 Encounter for screening for malignant neoplasm of prostate (principal); R06.09 Other forms of dyspnea; R53.83 Other fatigue; M25.50 Pain in unspecified joint
CPT/HCPCS: 36415; 71046; 80053; 82607; 82746; 82784; 83540; 84153; 84165; 85025; 86140; 86334; 86617; 86618

== ENCOUNTER 2023-05-04 10:17 | Outpatient (REF) | payer MEDICARE, SELFPAY ==
[2023-05-08 16:13] LABS: Kappa, Serum 123 mg/dL (176-443); Kappa/Lambda Ratio, Serum 1.64 (1.29-2.55); Lambda, Serum 75 mg/dL (91-240)
== END 2023-05-04 10:18 | disposition home or self-care (01) ==
LOC: HO.HMGCLDS 10:17
PROVIDERS: PCP Internal Medicine; Visit Provider Internal Medicine
DX: R76.8 Other specified abnormal immunological findings in serum (principal)
CPT/HCPCS: 83883; 86335

== ENCOUNTER 2023-06-05 07:55 | Outpatient (AMB) | payer MEDICARE, SELFPAY ==
[2023-06-05 08:11] VITALS: BP 136/74; PULSE 76; O2SAT 96; BMI 31.2
--- NOTE | 2023-06-05 08:11 | MHC.PC.OV ---
Vital Signs 06/05/23 08:11 Height 5 ft 8 in Weight 205 lb BMI 31.2 BP 136/74 Blood Pressure Location Lt brachial Position Sitting Pulse 76 Pulse Source Pulse Oximeter Pulse Oximetry (%) 96 Oxygen Delivery Method Room Air Intake Visit Reasons: Follow up BP Intake Note: Pt is here today for a follow up visit on BP. Pt states that he is still having fatique and he thinks its from one of his BP med. Allergies No Known Allergies [No Known Allergies*] Allergy (Verified 06/05/23 08:16) Medication List - Last Reconciled 06/05/23 by Marilia Agarwal MD amlodipine 10 mg PO DAILY calcium citrate 250 mg PO DAILY cholecalciferol (vitamin D3) 50 mcg PO DAILY 30 days flaxseed oil ([place]-3 Flaxseed Oil) 1,000 mg PO DAILY glucosamine sulfate (Glucosamine) 500 mg PO DAILY multivitamin 1 tab PO DAILY [tumeric PO] valsartan 160 mg PO DAILY vitamin C-vitamin E 500-400 mg-unit caps PO vitamins A,C,G-dige-xxskpg 4,296 mcg-226 mg-90 mg (PreserVision AREDS) 1 cap PO BID Tobacco use date assessed: 04/19/23 HPI Follow up BP HPI Details Patient presents for the follow-up. He complains of feeling fatigued for at least a year. Patient stopped taking amlodipine for 1 week and felt better but his blood pressure increased to 150/90. Patient denies chest pain or shortness of breath. He has not been physically active since his knee replacement surgery because of fatigue. [facility] Medical History Fatigue History of prostate cancer Hypertension Non-toxic multinodular goiter Osteopenia Osteoporosis Primary hyperparathyroidism Skin cancer Vitamin D deficiency Surgical History History of parathyroid surgery Hx of left knee surgery Hx of tonsillectomy Hx of tooth extraction Status post surgical removal of malignant neoplasm of skin Umbilical hernia (03/22/23) Family History Father Hypertension Lung cancer Mother No problems noted. Brother Mental health disorder Social History Housing: House Alcohol intake: never Patient Tobacco Use Status: Never used Tobacco e-Cigarette/Vaping Use: Never Used Current occupational status: retired Cognitive needs: No Hearing needs: Yes Vision needs: No Questionnaire Thrive Questionnaire Date Thrive assessed: 04/19/23 JERED-7 AMB Questionnaire JERED-7 Date JERED - 7 assessed: 04/19/23 Source: Developed by Drs. Stevo Meadows, Rosie Kincaid, Jeremiah Chin and colleagues, with an educational mandy from [employer]. Review of Systems Const All systems reviewed & are unremarkable except as noted in HPI and below Reports no additional complaints Eyes Reports no additional complaints ENT Reports no additional complaints Card Reports no additional complaints Resp Reports no additional complaints GI Reports no additional complaints Physical exam (Primary Care) Vital Signs: Last Vital Signs Pulse 76 06/05/23 08:11 BP 136/74 06/05/23 08:11 Pulse Ox 96 06/05/23 08:11 Oxygen Delivery Method Room Air 06/05/23 08:11 BMI result Body Mass Index 31.2 Tobacco/Smoking Status: Tobacco use Status Tobacco use date assessed 04/19/23 06/05/23 08:12 Patient Tobacco Use Status Never used Tobacco 06/05/23 08:12 e-Cigarette/Vaping Use Never Used 06/05/23 08:12 Thrive Assessment: Date of Thrive Assessment Date Thrive assessed 04/19/23 06/05/23 08:12 Const General: no acute distress Neck Neck: Yes supple Resp Effort & Inspection: normal respiratory effort Auscultation: clear to auscultation bilaterally Cardio Rhythm: regular rhythm Heart sounds: S1 normal heart sound present and S2 normal heart sound present GI Inspection: Yes normal to inspection Assessment and Plan Assessment & Plan (1) Hypertension: Code(s): I10 - Essential (primary) hypertension Plan: Patient will stop amlodipine and increase valsartan to 160 mg twice a day. He will return for nurse visit for blood pressure check in 1 week and basic metabolic panel. Patient will follow-up in 1 month. Holter monitor for 3 days will be obtained to rule out significant arrhythmias or bradycardia Orders: Orders Basic Metabolic Panel 1 Week I10 - Essential (primary) hypertension ECG 3 day holter monitor Today I10 - Essential (primary) hypertension Medications: Changed From valsartan 160 mg PO DAILY 90 tabs 3RF To valsartan 160 mg PO BID 90 tabs 3RF Discontinued amlodipine Discontinued Reason: Doctor's Order 10 mg PO DAILY 90 tabs 3RF Coding Level of Care Code Est Pt Level 3 (89846) Diagnoses Hypertension I10
== END 2023-06-05 09:13 | disposition home or self-care (01) ==
PROVIDERS: PCP Internal Medicine; Visit Provider Internal Medicine
DX: I10 Essential (primary) hypertension (principal)
CPT/HCPCS: 99213

== ENCOUNTER → 2023-06-21 07:44 | Outpatient (REF) | payer MEDICARE, SELFPAY ==
--- NOTE | ~2023-06-21 | NM_ITS ---
Myocardial perfusion study Indication: Shortness of breath to evaluate for myocardial ischemia Technique: The patient was brought in for a Lexiscan perfusion study on 06/21/2023. Patient performed low-level exercise and was injected 0.4 mg of Lexiscan intravenously. Within a minute of injection, 30 mCi of sestamibi was given intravenously. Images were obtained using the SPECT gamma camera interlaced with the gating device. Images were obtained in supine position. Resting perfusion study was performed on 06/25/2023. Patient was administered 30 mCi of sestamibi intravenously at rest. Images were then obtained in supine position. Images obtained with and without CT attenuation. Total DLP 100 mGy-cm. Images were processed with the software and compared side to side in short axis, horizontal long axis and vertical long axis views. Findings: The stress perfusion study showed non attenuated images show mildly reduced uptake in the basal inferior as well as basal lateral and basal septal wall of the LV myocardium. Remainder of the LV myocardium is normally perfused. Attenuation corrected images show normal uptake of radiotracer in all segments of LV myocardium. The gated study shows normal LV systolic function with calculated LVEF of 65%. LV cavity is normal size. The gated study shows normal systolic wall thickening and contraction of segments. Resting study shows no change in perfusion compared to stress perfusion study. Gating at rest reveals normal systolic wall motion with ejection fraction at 60%. The findings are consistent with normal myocardial perfusion. NM/NM cardiolite stress test Impression: 1. Myocardial perfusion imaging study shows normal myocardial perfusion 2. Gated LVEF is 65% 3. Transient ischemic dilatation not present EKG is nondiagnostic for ischemia
--- NOTE | 2023-06-21 07:52 | CA_ITS ---
Acquisition Time: 2023-06-21 09:14:21 Total Exercise Time: 00:04:40 Test Indications: SOB Medications: Protocol: BRAIN Max HR: 113 BPM 81% of Pred: 138 BPM Max BP: 196/066 mmHG Max Work Load: 4.9 METS Exercise stress test exercise 4 min 40 sec of Brain protocl stage 2 reduced speed to 2.1mph and incline to 11% due to safety achieving 76% MPHR, without anginal symptoms, with Isolated PVCs ventricular cuplet, ventricular bigeminy, isolated PAC, with normotensive response to exercise, without EKG changes. Test changed to pharmacolgoical stress test with Lexiscan injection while sitting and kicking his legs, without anginal symptoms, with isolated PVCs, with normotensive response to injection, with nondiagnositic EKGs. Aminophylline 75mg IVP given to anna Whittington. Nuclear images pending. Test reviewed with Dr. Canchola Referred By: Marilia Agarwal Overread By: Mela Castillo
--- NOTE | 2023-06-21 07:52 | CA_ITS ---
Transthoracic Echocardiogram Patient (Last, First, Middle): Jose Juan Ibrahim, Gender: Male Date of : 1940 Age: 83 Procedure Date: 06/21/2023 Procedure Type: Transthoracic Echocardiogram Location: OP Height: 172.72 cm Weight: 92.08 kg BSA: 2.06 m2 Heart Rate: 61 bpm BP: 160 / 90 mmHg Neonatal Intensive Care Unit Nurse: NIDHI Referring MD: Marilia Agarwal MD Symptoms: R06.09 - Other forms of dyspnea Study Quality: Adequate ECG Rhythm: Sinus with occasioanl PVCs Conclusions: - 1. Normal LV ejection fraction of 60 65% with mild LVH with impaired relaxation filling pattern 2. Mildly dilated left atrium 3. Normal cardiac valvular Dopplers next 4. Mildly dilated ascending aorta 3.9 cm 5. Normal RV systolic pressure 6. No pericardial effusion Findings Left Ventricle Normal left ventricular size and systolic function. There is mildly increased left ventricular wall thickness. The visually estimated ejection fraction is between 60-65%. Spectral Doppler is indicative of an impaired relaxation filling pattern. E/E prime ratio is between 8 and 15 consistent with indeterminate filling pressures. Peak GLS is -17.8%, borderline normal. Right Ventricle Normal right ventricular cavity size and systolic function. Atria The left atrium is mildly dilated. There is no evidence of interatrial shunt. The right atrium is normal in size. Aortic Valve There is mild calcification of the aortic valve. The peak aortic gradient is 15 mmHg.The mean gradient is 8 mmHg. There is no aortic valve regurgitation. Mitral Valve There is mild mitral annular calcification. There is trace mitral valve regurgitation. There is no mitral valve stenosis. Pulmonic Valve The pulmonic valve was not well visualized. Tricuspid Valve Likely normal tricuspid valve structure and function. There is trace tricuspid valve regurgitation. The right ventricular systolic pressure is normal. Normal right atrial pressure. There is no evidence of pulmonary hypertension. Great Vessels The pulmonary artery was not well visualized. There is mild dilatation of the ascending aorta measuring 3.90 cm. Venous The inferior vena cava is normal in size and collapses greater than 50% with inspiration. Pericardium/Pleural There is no evidence of pericardial effusion. Prior Study Comparison No previous study in the last 5 years for comparison Measurements 2D Linear Measurements IVSd: 1.29 0.6-0.9/0.6-1.0 cm LVIDd: 3.92 3.9-5.3/4.2-5.9 cm LVIDd Index: 1.90 2.4-3.2/2.2-3.1 cm/m2 LVIDs: 2.18 2.0-3.6 cm LVPWd: 1.21 0.7-1.1 cm LA Diam: 4.20 2.7-3.8/3.0-4.0 cm LAIDs Index: 2.04 1.5-2.3 cm/m2 LV Mass: 217.72 67-162/88-224 g LV Mass Index: 105.69 43-95/49-115 g/m2 LVOT Diam: 2.00 3.0+(-)1.3 cm 2D Systolic Function EF 4C: 65.60 >55% EF 2C: 61.70 >55% EF BiP: 65.10 >55% Mitral Valve MV Pk E: 0.65 MV PK A: 0.72 MV Decel Time: 251.00 E/A: 0.90 E'Lateral: 8.81 E'Medial: 8.16 E/E' Med: 8.00 E/E' Lat: 7.40 PHT: 73.00 MVA PHT: 3.01 Decel [place]: 2.60 Aortic Valve AoV Pk Zaki: 1.92 AoV Mn Zaki: 1.32 AoV VTI: 0.40 AoV Pk Grad: 15.00 Aov Mn Grad: 8.00 CONOR Cont.VTI: 2.18 LVOT LVOT Pk Zaki: 1.31 LVOT Mn Zaki: 0.95 LVOT VTI: 0.28 LVOT Pk Grad: 7.00 LVOT Mn Grad: 4.00 LVOT Diam: 2.00 LVOT Area: 3.14 Diastolic Function MV Pk E: 0.65 MV Pk A: 0.72 E/A: 0.90 E'Medial: 8.16 E/E' Med: 8.00 E' Laterial: 8.81 E/E' Lat: 7.40 Right Ventricle TAPSE (mm): 26.20 TVS' Zaki: 11.10 Tricuspid Valve TR Pk Zaki: 2.54 TR Pk Grad: 26.00 RA Press: 3.00 RVSP: 29.00 Great Vessels Aorta Sinus of Valsalva: 3.60 2.0-3.5 cm Ao Asc: 3.90 2.1-3.4 cm Pulmonary Valve PV Pk Zaki: 1.13 Peak PV Grad: 5.00 Updated in Other Vendor System with Status of Final Chance Canchola MD electronically signed on 06/21/2023 3:05:39 PM with status of Final
== END ==
LOC: HO.CARD 07:44
PROVIDERS: PCP Internal Medicine; Visit Provider Internal Medicine
DX: R06.09 Other forms of dyspnea (principal); R53.83 Other fatigue
CPT/HCPCS: 78452; 93017; 93306; 93356; A9500; J0280; J2785

== ENCOUNTER → 2023-06-21 07:52 | Outpatient (BNV) | payer MEDICARE, SELFPAY | PROVIDERS: PCP Internal Medicine; Visit Provider Internal Medicine Cardiovascular Disease | DX: I34.81 Nonrheumatic mitral (valve) annulus calcification (principal); I35.8 Other nonrheumatic aortic valve disorders; R06.02 Shortness of breath | CPT/HCPCS: 78452; 93016; 93018; 93306 ==

== ENCOUNTER 2023-06-28 08:19 | Outpatient (AMB) | payer MEDICARE, SELFPAY ==
[2023-06-28 08:44] VITALS: BP 142/80; PULSE 67; O2SAT 98; BMI 30.9
--- NOTE | 2023-06-28 08:44 | MHC.PC.OV ---
Vital Signs 06/28/23 08:44 Height 5 ft 8 in Weight 203 lb BMI 30.9 BP 142/80 H Blood Pressure Location Lt brachial Position Sitting Pulse 67 Pulse Source Pulse Oximeter Pulse Oximetry (%) 98 Oxygen Delivery Method Room Air Intake Visit Reasons: Discuss medication Intake Note: Pt is here today for a follow up visit on BP medication change. Allergies amlodipine Adverse Reaction (Intermediate, Verified 06/28/23 09:10) fatigue Medication List - Last Reconciled 06/28/23 by Marilia Agarwal MD amlodipine 10 mg PO DAILY calcium citrate 250 mg PO DAILY cholecalciferol (vitamin D3) 50 mcg PO DAILY 30 days flaxseed oil ([place]-3 Flaxseed Oil) 1,000 mg PO DAILY glucosamine sulfate (Glucosamine) 500 mg PO DAILY multivitamin 1 tab PO DAILY [tumeric PO] valsartan 160 mg PO BID vitamin C-vitamin E 500-400 mg-unit caps PO vitamins A,C,F-zclu-ddtsjc 4,296 mcg-226 mg-90 mg (PreserVision AREDS) 1 cap PO BID Tobacco use date assessed: 04/19/23 HPI Discuss medication HPI Details Pt presents for f/u HTN. Pt c/o feeling tired and fatigued while taking Amlodipine. Patient increase valsartan to 320 mg for 1 week and was feeling better but then checked his blood pressure at home and BP was elevated and restarted amlodipine. He would like to stop amlodipine and try different medication for HTN. PFSH Medical History Fatigue History of prostate cancer Hypertension Non-toxic multinodular goiter Osteopenia Osteoporosis Primary hyperparathyroidism Skin cancer Vitamin D deficiency Surgical History History of parathyroid surgery Hx of left knee surgery Hx of tonsillectomy Hx of tooth extraction Status post surgical removal of malignant neoplasm of skin Umbilical hernia (03/22/23) Family History Father Hypertension Lung cancer Mother No problems noted. Brother Mental health disorder Social History Housing: House Alcohol intake: never Patient Tobacco Use Status: Never used Tobacco e-Cigarette/Vaping Use: Never Used Current occupational status: retired Cognitive needs: No Hearing needs: Yes Vision needs: No Questionnaire Thrive Questionnaire Date Thrive assessed: 04/19/23 JERED-7 AMB Questionnaire JERED-7 Date JERED - 7 assessed: 04/19/23 Source: Developed by Drs. Stevo Meadows, Rosie Kincaid, Jeremiah Chin and colleagues, with an educational mandy from [employer]. Review of Systems Const All systems reviewed & are unremarkable except as noted in HPI and below Reports no additional complaints Eyes Reports no additional complaints ENT Reports no additional complaints Card Reports no additional complaints Resp Reports no additional complaints GI Reports no additional complaints Reports no additional complaints Physical exam (Primary Care) Vital Signs: Last Vital Signs Pulse 67 06/28/23 08:44 BP 142/80 H 06/28/23 08:44 Pulse Ox 98 06/28/23 08:44 Oxygen Delivery Method Room Air 06/28/23 08:44 BMI result Body Mass Index 30.9 Tobacco/Smoking Status: Tobacco use Status Tobacco use date assessed 04/19/23 06/28/23 08:44 Patient Tobacco Use Status Never used Tobacco 06/28/23 08:44 e-Cigarette/Vaping Use Never Used 06/28/23 08:44 Thrive Assessment: Date of Thrive Assessment Date Thrive assessed 04/19/23 06/28/23 08:44 Const General: no acute distress HENMT Face and sinus: Yes normal facial exam Resp Effort & Inspection: normal respiratory effort Auscultation: clear to auscultation bilaterally Cardio Rhythm: regular rhythm Heart sounds: S1 normal heart sound present and S2 normal heart sound present GI Inspection: Yes normal to inspection Palpation (GI): Soft to palpation Auscultation: normal bowel sounds Assessment and Plan Assessment & Plan (1) Fatigue: Comment: NORMAL NUCLEAR STRESS TEST AND ECHOCARDIOGRAM Code(s): R53.83 - Other fatigue (2) Hypertension: Comment: AMLODIPINE CAUSED FATIGUE Code(s): I10 - Essential (primary) hypertension Plan: Patient will stop amlodipine increase valsartan to 320 mg and add hydrochlorothiazide 25 mg. He return for blood pressure check in 1 week Medications: New hydrochlorothiazide 25 mg PO DAILY 30 tabs 0RF Coding Level of Care Code Est Pt Level 3 (86140) Diagnoses Fatigue R53.83 Hypertension I10
== END 2023-06-28 09:17 | disposition home or self-care (01) ==
PROVIDERS: PCP Internal Medicine; Visit Provider Internal Medicine
DX: R53.83 Other fatigue (principal); I10 Essential (primary) hypertension
CPT/HCPCS: 99213

== ENCOUNTER 2023-08-02 10:33 | Outpatient (AMB) | payer MEDICARE, SELFPAY ==
--- NOTE | 2023-08-02 10:56 | MHC.PC.OV ---
Vital Signs 08/02/23 10:57 Height 5 ft 8 in Weight 207 lb BMI 31.5 BP 126/80 Blood Pressure Location Rt brachial Position Sitting Pulse 63 Pulse Source Pulse Oximeter Pulse Oximetry (%) 97 Oxygen Delivery Method Room Air Intake Visit Reasons: Hypertension Intake Note: Pt is here today to f/u HTN Allergies amlodipine Adverse Reaction (Intermediate, Verified 08/02/23 10:56) fatigue Medication List - Last Reconciled 08/02/23 by Marilia Agarwal MD calcium citrate 250 mg PO DAILY cholecalciferol (vitamin D3) 50 mcg PO DAILY 30 days flaxseed oil ([place]-3 Flaxseed Oil) 1,000 mg PO DAILY glucosamine sulfate (Glucosamine) 500 mg PO DAILY hydrochlorothiazide 25 mg PO DAILY multivitamin 1 tab PO DAILY [tumeric PO] valsartan 160 mg PO DAILY vitamin C-vitamin E 500-400 mg-unit caps PO vitamins A,C,M-mmct-ukbpmf 4,296 mcg-226 mg-90 mg (PreserVision AREDS) 1 cap PO BID Tobacco use date assessed: 08/02/23 Fall risk assessment: No Falls in past year Last assessed Fall Risk: 08/02/23 Dental Screening Dental Screen Date: 08/02/23 Did you have a dental visit in the last 12 months?: Yes Did you have a dental problem in the last 6 months where you did not have access to dental care?: Yes Was dental information given to patient?: Patient has dentist HPI Hypertension HPI Details Pt presents for f/u HTN, fatigue better since increased exercise to 1 1/2 mile 5 x week. 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 [facility] Medical History Fatigue History of prostate cancer Hypertension Non-toxic multinodular goiter Osteopenia Osteoporosis Primary hyperparathyroidism Skin cancer Vitamin D deficiency Surgical History History of parathyroid surgery Hx of left knee surgery Hx of tonsillectomy Hx of tooth extraction Status post surgical removal of malignant neoplasm of skin Umbilical hernia (03/22/23) Family History Father Hypertension Lung cancer Mother No problems noted. Brother Mental health disorder Social History Housing: House Alcohol intake: never Patient Tobacco Use Status: Never used Tobacco e-Cigarette/Vaping Use: Never Used Current occupational status: retired Cognitive needs: No Hearing needs: Yes Vision needs: No Questionnaire Thrive Questionnaire Date Thrive assessed: 04/19/23 JERED-7 AMB Questionnaire JERED-7 Date JERED - 7 assessed: 04/19/23 Source: Developed by Drs. Stevo Meadows, Rosie Kincaid, Jeremiah Chin and colleagues, with an educational mandy from [employer]. Review of Systems Const All systems reviewed & are unremarkable except as noted in HPI and below Reports no additional complaints Eyes Reports no additional complaints ENT Reports no additional complaints Card Reports no additional complaints Resp Reports no additional complaints GI Reports no additional complaints Reports no additional complaints Physical exam (Primary Care) Vital Signs: Last Vital Signs Pulse 63 08/02/23 10:57 BP 158/90 H 08/02/23 10:57 Pulse Ox 97 08/02/23 10:57 Oxygen Delivery Method Room Air 08/02/23 10:57 BMI result Body Mass Index 31.5 Tobacco/Smoking Status: Tobacco use Status Tobacco use date assessed 08/02/23 08/02/23 11:03 Patient Tobacco Use Status Never used Tobacco 08/02/23 11:03 e-Cigarette/Vaping Use Never Used 08/02/23 11:03 Thrive Assessment: Date of Thrive Assessment Date Thrive assessed 04/19/23 08/02/23 11:03 Const General: no acute distress HENMT Head: Yes normal to inspection Ears: hearing grossly normal bilaterally Throat: Yes posterior oropharynx normal Neck Neck: Yes no lymphadenopathy and Yes supple Resp Effort & Inspection: normal respiratory effort Auscultation: clear to auscultation bilaterally Cardio Rhythm: regular rhythm Heart sounds: S1 normal heart sound present and S2 normal heart sound present GI Inspection: Yes normal to inspection Palpation (GI): Soft to palpation Percussion: Yes normal to percussion Auscultation: normal bowel sounds Assessment and Plan Assessment & Plan (1) Hypertension: Comment: AMLODIPINE CAUSED FATIGUE Code(s): I10 - Essential (primary) hypertension Plan: Continue losartan and hydrochlorothiazide check basic metabolic panel today. Follow-up in 3 months with a fasting labs before (2) Primary hyperparathyroidism: Comment: S/P parathyroidectomy Code(s): E21.0 - Primary hyperparathyroidism Plan: Continue calcium and vitamin-D supplement follow-up with endocrinology (3) Osteoporosis: Code(s): M81.0 - Age-related osteoporosis without current pathological fracture Plan: See above Orders: Orders Comprehensive [place]. Panel Fast 3 Months I10 - Essential (primary) hypertension Basic Metabolic Panel Today I10 - Essential (primary) hypertension Complete Blood Count Auto Diff 3 Months I10 - Essential (primary) hypertension Lipid Panel 3 Months I10 - Essential (primary) hypertension Medications: Changed From valsartan 160 mg PO BID 90 tabs 3RF To valsartan 160 mg PO DAILY 90 tabs 3RF Coding Level of Care Code Est Pt Level 3 (46296) Diagnoses Hypertension I10 Primary hyperparathyroidism E21.0 Osteoporosis M81.0
[2023-08-02 10:57] VITALS: BP 126/80; PULSE 63; O2SAT 97; BMI 31.5
== END 2023-08-02 11:40 | disposition home or self-care (01) ==
PROVIDERS: PCP Internal Medicine; Visit Provider Internal Medicine
DX: I10 Essential (primary) hypertension (principal); E21.0 Primary hyperparathyroidism; M81.0 Age-related osteoporosis without current pathological fracture
CPT/HCPCS: 99213

== ENCOUNTER 2023-08-02 11:40 | Outpatient (REF) | payer MEDICARE, SELFPAY ==
[2023-08-02 13:44] LABS: Anion Gap 11 (12-20); Blood Urea Nitrogen 27 mg/dL (9-16); Calcium 9.7 mg/dL (8.4-10.2); Carbon Dioxide 31 mmol/L (22-29); Chloride 104 mmol/L (96-108); Estimated Glomerular Filt Rate > 60; Glucose Random 92 mg/dL (60-115); Potassium 4.9 mmol/L (3.3-5.1); Sodium 141 mmol/L (135-145)
== END 2023-08-02 11:41 | disposition home or self-care (01) ==
LOC: HO.HMGCLDS 11:40
PROVIDERS: PCP Internal Medicine; Visit Provider Internal Medicine
DX: I10 Essential (primary) hypertension (principal)
CPT/HCPCS: 36415; 80048

== ENCOUNTER 2023-10-11 13:32 | Outpatient (REF) | payer MEDICARE, SELFPAY ==
--- NOTE | ~2023-10-11 | MM_ITS ---
EXAMINATION: BONE DENSITOMETRY CLINICAL INDICATION: Primary hyperparathyroidism. COMPARISON: Previous BD dated 09/20/2021 and baseline BD dated 04/09/2019. TECHNIQUE: Using a [employer] DXA System (software version: 13.1) manufactured by [employer], dual-energy x-ray absorptiometry was performed of the lumbar spine, left hip and left forearm radius 33%. The images are of good technical quality. Summary results are attached. FINDINGS: LEFT FEMUR, NECK: Current: BMD 0.769 g/cm2, Z-score -1.1, T-score -2.3, osteopenia. Prior: BMD 0.704 g/cm2. Baseline: BMD 0.848 g/cm2. LEFT FEMUR, TOTAL: Current: BMD 0.869 g/cm2, Z-score -0.7, T-score -1.6, osteopenia, 3.5% increase from previous, 9.6% decrease from baseline (<5% change is not significant). Prior: BMD 0.840 g/cm2. Baseline: BMD 0.961 g/cm2. AP SPINE L1-L4: Current: BMD 1.363 g/cm2, Z-score 1.4, T-score 1.2, normal, 4.4% increase from previous, 1.3% increase from baseline (<5% change is not significant). Prior: BMD 1.306 g/cm2. Baseline: BMD 1.345 g/cm2. LEFT FOREARM RADIUS 33%: BMD 0.843 g/cm2, Z-score -0.2, T-score -1.5, osteopenia, 8.5% decrease from previous, 5.9% decrease from baseline (<5% change is not significant). Prior: BMD 0.921 g/cm2. Baseline: BMD 0.896 g/cm2. IDENTIFIED RISK FACTORS: Hyperparathyroidism, history of fracture (adult), thiazide. HISTORY OF FRACTURE: Other. MEDICATIONS: Calcium supplements or multivitamin, vitamin D. MM/XR DEXA appendicular skeleton IMPRESSION: 1. DIAGNOSIS: Osteopenia based on the lowest T-score value of -2.3 in the femoral neck applying World Health Organization criteria. 2. 10-YEAR FRACTURE RISK PREDICTION, FRAX: Major osteoporotic fracture (clinical spine, forearm, hip or shoulder) 13.5%. Hip fracture 5.4%. 3. Treatment Recommendations: NOF guidelines recommend consideration for treatment in postmenopausal women and men age 50 and older presenting with the following: -A hip or vertebral (clinical or morphometric) fracture. -T-score less than or equal to -2.5 at the femoral neck or spine after appropriate evaluation to exclude secondary causes. -Low bone mass at the hip or spine and a 10-year fracture probability by FRAX of greater than or equal to 3% for hip fracture or greater than or equal to 20% for major osteoporotic fracture based on the [place] adapted WHO algorithm. 4. Other Recommendations: All treatment decisions require clinical judgment and consideration of individual patient factors, including patient preferences, comorbidities, previous drug use, risk factors not captured in the FRAX model (e.g. frailty, falls, vitamin D deficiency, increased bone turnover, interval significant decline in bone density) and possible under or overestimation of fracture risk by FRAX. Additional medical evaluation for secondary cause of low bone mineral density may be appropriate. FUTURE SCAN RECOMMENDATION: People with diagnosed cases of osteoporosis or at high risk for fracture should have regular bone mineral density tests. For patients eligible for Medicare, routine testing is allowed once every 2 years. The testing frequency can be increased to one year for patients who have rapidly progressing disease, those who are receiving or discontinuing medical therapy to restore bone mass, or have additional risk factors.
== END 2023-10-11 13:33 | disposition home or self-care (01) ==
LOC: HO.MAMMO 13:32
PROVIDERS: PCP Internal Medicine; Visit Provider Internal Medicine Endocrinology, Diabetes & Metabolism
DX: Z13.820 Encounter for screening for osteoporosis (principal); E21.0 Primary hyperparathyroidism
CPT/HCPCS: 77081

== ENCOUNTER 2023-10-24 14:07 | Outpatient (AMB) | payer MEDICARE, SELFPAY ==
[2023-10-24 14:37] VITALS: BP 140/78; PULSE 74; O2SAT 100; BMI 31.5
--- NOTE | 2023-10-24 14:37 | A.OFFPC_ITS ---
Vital Signs 10/24/23 14:37 Height 5 ft 8 in Weight 207 lb BMI 31.5 BP 140/78 H Blood Pressure Location Lt brachial Position Sitting Pulse 74 Pulse Source Pulse Oximeter Pulse Oximetry (%) 100 Oxygen Delivery Method Room Air Intake Visit Reasons: feeling lethargic Intake Note: Pt is here today for a follow up visit. Pt states that he is still suffering from excesive fatque and he developed a tremor in his L hand. Allergies amlodipine Adverse Reaction (Intermediate, Verified 10/24/23 14:43) fatigue Medication List - Last Reconciled 10/24/23 by Marilia Agarwal MD calcium citrate 250 mg PO DAILY cholecalciferol (vitamin D3) 50 mcg PO DAILY 30 days flaxseed oil ([place]-3 Flaxseed Oil) 1,000 mg PO DAILY glucosamine sulfate (Glucosamine) 500 mg PO DAILY hydrochlorothiazide 25 mg PO DAILY multivitamin 1 tab PO DAILY [tumeric PO] valsartan 160 mg PO DAILY vitamin C-vitamin E 500-400 mg-unit caps PO vitamins A,C,D-rlmp-fvzuls 4,296 mcg-226 mg-90 mg (PreserVision AREDS) 1 cap PO BID Tobacco use date assessed: 10/24/23 Fall risk assessment: No Falls in past year Last assessed Fall Risk: 10/24/23 Dental Screening Dental Screen Date: 10/24/23 Did you have a dental visit in the last 12 months?: Yes Did you have a dental problem in the last 6 months where you did not have access to dental care?: No Was dental information given to patient?: Patient has dentist HPI feeling lethargic HPI Details Pt presents for follow-up on hypertension , controlled on current medications. Patient reports decreased exercise tolerance and sudden dyspnea on exertion when walking fast. He denies PND orthopnea chest pains. Patient had negative stress test in June. [facility] Medical History (Updated 10/24/23 @ 15:38 by Marilia Agarwal MD) Osteoporosis Vitamin D deficiency Fatigue Skin cancer Hypertension History of prostate cancer Osteopenia Non-toxic multinodular goiter Primary hyperparathyroidism Surgical History Umbilical hernia (03/22/23) Hx of tooth extraction History of parathyroid surgery Status post surgical removal of malignant neoplasm of skin Hx of left knee surgery Hx of tonsillectomy Family History Father Hypertension Lung cancer Mother No problems noted. Brother Mental health disorder Social History Housing: House Alcohol intake: never Patient Tobacco Use Status: Never used Tobacco e-Cigarette/Vaping Use: Never Used Current occupational status: retired Cognitive needs: No Hearing needs: Yes Vision needs: No Questionnaire Thrive Questionnaire Date Thrive assessed: 04/19/23 AUDIT C Alcohol Use Questionnaire (AUDIT-C) 1. How often do you have a drink containing alcohol?: Monthly or less 2. How many drinks containing alcohol do you have on a typical day when you are drinking?: 1 or 2 3. How often do you have six or more drinks on one occasion?: Never Total Score: 1 JERED-7 AMB Questionnaire JERED-7 Date JERED - 7 assessed: 04/19/23 Feeling nervous, anxious, or on edge: 0 = Not at all Not being able to stop or control worryin = Not at all Worrying too much about different things: 0 = Not at all Trouble relaxin = Not at all Being so restless that it is hard to sit still: 0 = Not at all Becoming easily annoyed or irritable: 1 = Several days Feeling afraid as if something awful might happen: 0 = Not at all Total JERED-7 score (0-4 normal; 5-9 mild; 10-14 moderate; 15-21 severe): 1 Source: Developed by Drs. Stevo Meadows, Rosie Kincaid, Jeremiah Chin and colleagues, with an educational mandy from [employer]. Review of Systems Const All systems reviewed & are unremarkable except as noted in HPI and below Reports no additional complaints Eyes Reports no additional complaints ENT Reports no additional complaints Card Reports no additional complaints Resp Reports no additional complaints GI Reports no additional complaints Physical exam (Primary Care) Vital Signs: Last Vital Signs Pulse 74 10/24/23 14:37 BP 140/78 H 10/24/23 14:37 Pulse Ox 100 10/24/23 14:37 Oxygen Delivery Method Room Air 10/24/23 14:37 BMI result Body Mass Index 31.5 Tobacco/Smoking Status: Tobacco use Status Tobacco use date assessed 10/24/23 10/24/23 14:45 Patient Tobacco Use Status Never used Tobacco 10/24/23 14:45 e-Cigarette/Vaping Use Never Used 10/24/23 14:45 Thrive Assessment: Date of Thrive Assessment Date Thrive assessed 04/19/23 10/24/23 14:45 Const General: no acute distress HENMT Mouth: Normal oral and palatal mucosa present Neck Neck: Yes supple Resp Effort & Inspection: normal respiratory effort Auscultation: clear to auscultation bilaterally Cardio Rhythm: regular rhythm Heart sounds: S1 normal heart sound present and S2 normal heart sound present GI Inspection: Yes normal to inspection Assessment and Plan Assessment & Plan (1) Palpitations: Code(s): R00.2 - Palpitations Plan: For intravenous palpitations and decreased exercise tolerance through the Holter will be obtained to rule out arrhythmia (2) Hypertension: Comment: AMLODIPINE CAUSED FATIGUE Code(s): I10 - Essential (primary) hypertension Plan: Continue current medication (3) Primary hyperparathyroidism: Comment: S/P parathyroidectomy Code(s): E21.0 - Primary hyperparathyroidism Plan: Follow-up with endocrinology Orders: Orders ECG 3 day holter monitor Today R00.2 - Palpitations Complete Blood Count Auto Diff 6 Months E04.2 - Nontoxic multinodular goiter, E21.0 - Primary hyperparathyroidism, I10 - Essential (primary) hypertension Lipid Panel 6 Months E04.2 - Nontoxic multinodular goiter, E21.0 - Primary hyperparathyroidism, I10 - Essential (primary) hypertension TSH reflex Free T4 6 Months E04.2 - Nontoxic multinodular goiter, E21.0 - Primary hyperparathyroidism, I10 - Essential (primary) hypertension Comprehensive [place]. Panel Fast 6 Months E04.2 - Nontoxic multinodular goiter, E21.0 - Primary hyperparathyroidism, I10 - Essential (primary) hypertension PSA,Total (Free>4and<10) 6 Months E04.2 - Nontoxic multinodular goiter, E21.0 - Primary hyperparathyroidism, I10 - Essential (primary) hypertension Coding Level of Care Code Est Pt Level 3 (48570) Diagnoses Palpitations R00.2 Hypertension I10 Primary hyperparathyroidism E21.0
== END 2023-10-24 15:36 | disposition home or self-care (01) ==
PROVIDERS: PCP Internal Medicine; Visit Provider Internal Medicine
DX: R00.2 Palpitations (principal); I10 Essential (primary) hypertension; E21.0 Primary hyperparathyroidism
CPT/HCPCS: 99213

== ENCOUNTER 2024-01-14 16:04 | Outpatient (AMB) | payer MEDICARE, SELFPAY ==
--- NOTE | 2024-01-14 16:18 | A.OFFVIS_ITS ---
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 Accompanied by: Self / Same As Patient Allergies amlodipine Adverse Reaction (Intermediate, Verified 01/14/24 16:24) fatigue Medication List - Last Reconciled 01/14/24 by Dulce Garcia RN calcium citrate 250 mg PO DAILY cholecalciferol (vitamin D3) 50 mcg PO DAILY 30 days flaxseed oil ([place]-3 Flaxseed Oil) 1,000 mg PO DAILY glucosamine sulfate (Glucosamine) 500 mg PO DAILY hydrochlorothiazide 25 mg PO DAILY multivitamin 1 tab PO DAILY [tumeric PO] valsartan 160 mg PO DAILY vitamin C-vitamin E 500-400 mg-unit caps PO vitamins A,C,E-uzex-cyetsy 4,296 mcg-226 mg-90 mg (PreserVision AREDS) 1 cap PO BID HPI Comments Details: 82 YO Male with a PMHx of hyperparathyroidism s/p 2 gland resection 09/26/2020 and a NTMNG who is seen in F/U. He was previously followed by Dr. David. The patient last saw Dr. Friedmna on 01/21/2023 He was diagnosed with hyperparathyroidism in 2019 with his labs 03/21/2020 showing Calcium 10.5, Albumin 4.4, Vitamin D 39.7 and PTH 78. He was referred to Dr. Marques and underwent a surgical parathyroidectomy with removal of his R inferior and L superior parathyroid glands. Both consistent with hyperplastic glands. Labs have since normalized, with Calcium remaining low normal. He does have Osteoporosis of the hip. He takes Calcium and Vitamin D daily, but he is unsure of the dose. He also was found to have a multinodular thyroid, with multiple subcentimeter nodules. He has a history of prostate cancer and did have radiation therapy for this, but denies any history of head or neck irradiation. He denies a family history of thyroid cancer as well. He has no complaints today and states he feels well. Thyroid US: 10/02/2022 FINDINGS: ? SIZE: Measurements of the thyroid lobes and nodules are given in sagittal, anteroposterior and transverse dimensions respectively. Right Thyroid Lobe: 4.9 x 1.3 x 1.3 cm, volume 4.2 mL. Previously 4.5 x 1.2 x 1.2 cm, volume 3.4 mL. Parenchyma: The gland echotexture is homogeneous. Thyroid vascularity is normal. Left Thyroid Lobe: 4.2 x 1.8 x 1.0 cm, volume 3.8 mL. Previously 4.0 x 1.8 x 1.3 cm, volume 4.9 mL. Parenchyma: The gland echotexture is homogeneous. Thyroid vascularity is normal. Isthmus: 0.65 cm in maximum AP dimension. Previously 0.56 cm. Estimated total number of nodules greater than or equal to 1 cm: 0. 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 Location: Right mid. ?? ? Size: 0.67 x 0.59 x 0.75 cm, volume 0.16 mL. ?? ? Previously: 0.92 x 0.43 x 0.68 cm, volume 0.14 mL. ?? ? Nodule characteristics: ?? ? Composition: Spongiform (0). ?? ? Echogenicity: Anechoic (0). ?? ? Shape: Not taller than wide (0). ?? ? Margins: Smooth (0). ?? ? Echogenic Foci: None (0).? ACR TI-RADS total points: 0 Previous: 0 ?? ? ACR TI-RADS category: 1 Previous: 1 ? Significant change in size (>/= 20% in 2 dimensions and minimal increase of 2 mm or 50% or greater increase in volume): ?? ? Change in features: No ?? ? Change in ACR TI-RADS risk category: No 2.? Location: Left mid. ?? ? Size: 0.55 x 0.50 x 0.34 cm, volume 0.05 mL. ?? ? Previously: 0.53 x 0.40 x 0.33 cm, volume 0.04 mL. ?? ? Nodule characteristics: ?? ? Composition: Cystic(0). ?? ? ACR TI-RADS total points: 0 Previous: 0 ?? ? ACR TI-RADS category: 1 Previous: 1 ? Significant change in size (>/= 20% in 2 dimensions and minimal increase of 2 mm or 50% or greater increase in volume): ?? ? Change in features: No ?? ? Change in ACR TI-RADS risk category: No 3.? Location: Left inferior. ?? ? Size: 0.60 x 0.57 x 0.62 cm, volume 0.11 mL. ?? ? Previously: 0.51 x 0.67 x 0.45 cm, volume 0.03 mL. ?? ? Nodule characteristics: ?? ? Composition: Cystic(0). ?? ? Echogenicity: Absent ?? ? Shape: 0 ?? ? Margins: Ill-defined (0). ?? ? Echogenic Foci: None (0).? ACR TI-RADS total points: 0 Previous: 0 ?? ? ACR TI-RADS category: 1 Previous: 1 ? Significant change in size (>/= 20% in 2 dimensions and minimal increase of 2 mm or 50% or greater increase in volume): ?? ? Change in features: No ?? ? Change in ACR TI-RADS risk category: No NODES: No lymphadenopathy is seen in the tissue surrounding the thyroid gland. DEXA: 09/20/2021 FINDINGS: AP SPINE L1-L4: Current: BMD 1.306 g/cm2, Z-score 0.8, T-score 0.7, normal, 2.9% decrease from baseline (<5% change is not significant). Baseline: BMD 1.345 g/cm2. LEFT FEMUR, NECK: Current: BMD 0.704 g/cm2, Z-score -1.7, T-score -2.8, osteoporosis. Baseline: BMD 0.848 g/cm2. LEFT FEMUR, TOTAL: Current: BMD 0.840 g/cm2, Z-score -1.0, T-score -1.8, osteopenia, 12.6% decrease from baseline (<5% change is not significant). Baseline: BMD 0.961 g/cm2. LEFT FOREARM RADIUS 33%: BMD 0.921 g/cm2, Z-score 0.5, T-score -0.7, normal, 2.8% increase from baseline (<5% change is not significant). Baseline: BMD 0.896 g/cm2. Labs: Laboratory Tests 01/18/23 15:43 Sodium 140 Potassium 4.8 Creatinine 0.87 Estimated GFR > 60 25-OH Vitamin D Total 59.9 TSH 2.93 Free T4 0.91 Repeat DEXA showed low bone mass at all sites . Taking calcium and Vitamin D [facility] Medical History (Updated 10/24/23 @ 15:38 by Marilia Agarwal MD) Osteoporosis Vitamin D deficiency Fatigue Skin cancer Hypertension History of prostate cancer Osteopenia Non-toxic multinodular goiter Primary hyperparathyroidism Surgical History Umbilical hernia (03/22/23) Hx of tooth extraction History of parathyroid surgery Status post surgical removal of malignant neoplasm of skin Hx of left knee surgery Hx of tonsillectomy Family History Father Hypertension Lung cancer Mother No problems noted. Brother Mental health disorder Social History Housing: House Alcohol intake: never Patient Tobacco Use Status: Never used Tobacco e-Cigarette/Vaping Use: Never Used Current occupational status: retired Cognitive needs: No Hearing needs: Yes Vision needs: No Assessment & Plan Assessment & Plan (1) Primary hyperparathyroidism: Comment: S/P parathyroidectomy Code(s): E21.0 - Primary hyperparathyroidism Category: Medical Plan: This 81-year-old white male with a history of primary hyperparathyroidism status post parathyroidectomy with normalization of calcium and PTH. (2) Osteopenia: Code(s): M85.80 - Other specified disorders of bone density and structure, unspecified site Category: Medical Plan: Repeat DEXA showed low bone mass status post parathyroidectomy. Will continue calcium and vitamin-D. Patient should follow-up with primary care provider who could repeat DEXA bone density in 2 years' time and either start a bisphosphonate will refer back to endocrinology (3) Non-toxic multinodular goiter: Code(s): E04.2 - Nontoxic multinodular goiter Category: Medical Plan: Small subcentimeter nodules stable in size. Patient should follow up with primary care provider who could repeat a thyroid ultrasound about 2-3 years time if the substantial change in the size of the or characteristics of the nodules, patient returned back to endocrinology Coding Level of Care Code Est Pt Level 3 (35060) Diagnoses Primary hyperparathyroidism E21.0 Osteopenia M85.80 Non-toxic multinodular goiter E04.2
[2024-01-14 16:23] VITALS: BP 136/86; PULSE 68; BMI 31.6
== END 2024-01-14 16:50 | disposition home or self-care (01) ==
PROVIDERS: PCP Internal Medicine; Visit Provider Internal Medicine Endocrinology, Diabetes & Metabolism
DX: E21.0 Primary hyperparathyroidism (principal); M85.80 Other specified disorders of bone density and structure, unspecified site; E04.2 Nontoxic multinodular goiter
CPT/HCPCS: 99213

== ENCOUNTER → 2024-01-14 16:04 | Outpatient (BNVA) | payer MEDICARE, SELFPAY | PROVIDERS: PCP Internal Medicine; Visit Provider Internal Medicine Endocrinology, Diabetes & Metabolism | DX: E04.2 Nontoxic multinodular goiter (principal); M81.0 Age-related osteoporosis without current pathological fracture; E21.0 Primary hyperparathyroidism; E55.9 Vitamin D deficiency, unspecified; M85.80 Other specified disorders of bone density and structure, unspecified site; Z85.46 Personal history of malignant neoplasm of prostate; Z92.3 Personal history of irradiation | CPT/HCPCS: 99212 ==

== ENCOUNTER 2024-08-31 10:58 | Outpatient (AMB) | payer MEDICARE, SELFPAY ==
--- NOTE | 2024-08-31 11:07 | MHC.PC.OV ---
Vital Signs 08/31/24 11:08 Height 5 ft 8 in Weight 203 lb BMI 30.9 BP 120/84 Blood Pressure Location Lt brachial Position Sitting Pulse 61 Pulse Source Pulse Oximeter Pulse Oximetry (%) 95 Oxygen Delivery Method Room Air Intake Visit Reasons: Swollen Feet, Hard to Balance, Can't walk Intake Note: Pt is here today for a sick visit. Pt c/o swollen feet for 3 months now. Pt also feels off balance that its hard to walk. Allergies amlodipine Adverse Reaction (Intermediate, Verified 08/31/24 11:08) fatigue Medication List - Last Reconciled 08/31/24 by Marilia Agarwal MD calcium citrate 250 mg PO DAILY cholecalciferol (vitamin D3) 50 mcg PO DAILY 30 days flaxseed oil ([place]-3 Flaxseed Oil) 1,000 mg PO DAILY glucosamine sulfate (Glucosamine) 500 mg PO DAILY hydrochlorothiazide 25 mg PO DAILY multivitamin 1 tab PO DAILY [tumeric PO] valsartan 160 mg PO DAILY vitamin C-vitamin E 500-400 mg-unit caps PO vitamins A,C,H-fwei-iabjxu 4,296 mcg-226 mg-90 mg (PreserVision AREDS) 1 cap PO BID Tobacco use date assessed: 08/31/24 Dental Screening Dental Screen Date: 10/24/23 HPI Swollen Feet, Hard to Balance, Can't walk HPI Details Pt presents for follow-up of hypertension, stable on medications. Patient complains of poor balance and numbness of both feet and sensation of walking on marshmallows. 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 He denies recent falls. Patient noticed a resting tremor in his left hand getting worse. [facility] Medical History Osteoporosis Vitamin D deficiency Fatigue Skin cancer Hypertension History of prostate cancer Osteopenia Non-toxic multinodular goiter Primary hyperparathyroidism Surgical History Umbilical hernia (03/22/23) Hx of tooth extraction History of parathyroid surgery Status post surgical removal of malignant neoplasm of skin Hx of left knee surgery Hx of tonsillectomy Family History Father Hypertension Lung cancer Mother No problems noted. Brother Mental health disorder Social History (Updated 08/31/24 @ 12:15 by Marilia Agarwal MD) Household Members Other:: Lives alone, 2 adult children in [place] and [place], Housing: House Alcohol intake: never Patient Tobacco Use Status: Never used Tobacco e-Cigarette/Vaping Use: Never Used Current occupational status: retired Cognitive needs: No Hearing needs: Yes Vision needs: No Questionnaire PHQ-9 Over the last 2 weeks, how often have you been bothered by any of the following problems? 1. Little interest or pleasure in doing things: not at all 2. Feeling down, depressed, or hopeless: not at all 3. Trouble falling or staying asleep, or sleeping too much: not at all 4. Feeling tired or having little energy: nearly every day 5. Poor appetite or overeating: not at all 6. Feeling bad about yourself - or that you are a failure or have let yourself or your family down: not at all 7. Trouble concentrating on things, such as reading the newspaper or watching television: not at all 8. Moving or speaking so slowly that other people could have noticed. Or the opposite - being so fidgety or restless that you have been moving around a lot more than usual: nearly every day 9. Thoughts that you would be better off or of hurting yourself in some way: not at all Total score: 6 Depression Screening Interpretation: Negative Depression Screening Done: Yes 52544 - PHQ-9 Billing: Yes Source: Developed by Drs. Stevo Meadows, Rosie Kincaid, Jeremiah Chin and colleagues, with an educational mandy from [employer]. Thrive Questionnaire Date Thrive assessed: 08/31/24 I am a: Patient What is your living situation today?: I have a steady place to live Within the past 12 months, did the food you bought not last and you didn't have the money to get more?: I choose not to answer this question Within the past 12 months, did you worry whether your food would run out before you got money to buy more?: I choose not to answer this question Do you have trouble paying for medicines?: No Do you have trouble getting transportation to medical appointments?: No Do you have trouble paying your heating and electricity bill?: No Do you have trouble taking care of your child, family member or friend?: No Do you have trouble with day-to-day activities such as bathing, preparing meals, shopping, managing finances, etc.?: I choose not to answer this question Are you currently unemployed and looking for a job?: No Are you interested in more education?: No Please select the resources that you would like help with: None Currently or been in a relationship where the following occur: I choose not to answer THRIVE Score: 0 AUDIT C Alcohol Use Questionnaire (AUDIT-C) 1. How often do you have a drink containing alcohol?: Never Total Score: 0 JERED-7 AMB Questionnaire JERED-7 Date JERED - 7 assessed: 08/31/24 Feeling nervous, anxious, or on edge: 0 = Not at all Not being able to stop or control worryin = Not at all Worrying too much about different things: 0 = Not at all Trouble relaxin = Not at all Being so restless that it is hard to sit still: 0 = Not at all Becoming easily annoyed or irritable: 1 = Several days Feeling afraid as if something awful might happen: 0 = Not at all Total JERED-7 score (0-4 normal; 5-9 mild; 10-14 moderate; 15-21 severe): 1 Source: Developed by Drs. Stevo Meadows, Rosie Kincaid, Jeremiah Chin and colleagues, with an educational mandy from [employer]. JERED-7 Assessment Billing JERED-7 Assessment Tool: JERED-7 Assessment 91718 Review of Systems Const All systems reviewed & are unremarkable except as noted in HPI and below Eyes Reports no additional complaints ENT Reports no additional complaints Card Reports no additional complaints Resp Reports no additional complaints GI Reports no additional complaints Reports no additional complaints Physical exam (Primary Care) Vital Signs: Last Vital Signs Pulse 61 08/31/24 11:08 BP 120/84 08/31/24 11:08 Pulse Ox 95 08/31/24 11:08 Oxygen Delivery Method Room Air 08/31/24 11:08 BMI result Body Mass Index 30.9 Tobacco/Smoking Status: Tobacco use Status Tobacco use date assessed 08/31/24 08/31/24 11:18 Patient Tobacco Use Status Never used Tobacco 08/31/24 11:18 e-Cigarette/Vaping Use Never Used 08/31/24 11:18 PHQ-9: PHQ-9 Score PHQ-9: Total score 6 08/31/24 11:18 Depression Screening Interpretation: Negative Thrive Assessment: Date of Thrive Assessment Date Thrive assessed 08/31/24 08/31/24 11:25 Currently or been in a relationship where the following occur: I choose not to answer Const General: no acute distress HENMT Face and sinus: Yes normal facial exam Throat: Yes posterior oropharynx normal Neck Neck: Yes supple Resp Effort & Inspection: normal respiratory effort Auscultation: clear to auscultation bilaterally Cardio Rhythm: regular rhythm Heart sounds: S1 normal heart sound present and S2 normal heart sound present Neuro Other: Resting tremor of the left hand, decreased sensation to monofilament in both feet , absent sensation to vibration both feet at high socks level General: CN's II-XI intact bilaterally Gait exam (Neuro): Shuffling gait present Motor exam (neuro): 5/5 motor strength present throughout Coordination: [id number] test normal Romberg Test: Negative Extrem General: Yes no clubbing, cyanosis or edema Coding Level of Care Code Est Pt Level 4 (23346) Diagnoses Tremor R25.1 Poor balance R26.89 Hypertension I10 Peripheral neuropathy G62.9 Primary hyperparathyroidism E21.0 Additional Codes JERED-7 Assessment Billing - JERED-7 Assessment Tool: JERED-7 Assessment 38876 ([id number]) PHQ-9 - 25094 - PHQ-9 Billing: Yes ([id number]) Assessment & Plan Assessment & Plan (1) Tremor: Code(s): R25.1 - Tremor, unspecified Category: Medical Plan: Referred to neurology (2) Poor balance: Code(s): R26.89 - Other abnormalities of gait and mobility Category: Medical Plan: Referred to neurology and physical therapy (3) Hypertension: Comment: AMLODIPINE CAUSED FATIGUE Code(s): I10 - Essential (primary) hypertension Category: Medical Plan: Continue current medications (4) Peripheral neuropathy: Code(s): G62.9 - Polyneuropathy, unspecified Category: Medical Plan: Check B12 level (5) Primary hyperparathyroidism: Comment: S/P parathyroidectomy Code(s): E21.0 - Primary hyperparathyroidism Category: Medical Plan: Follow-up with endocrinology Orders: Orders TSH reflex Free T4 Today I10 - Essential (primary) hypertension, R25.1 - Tremor, unspecified, R26.89 - Other abnormalities of gait and mobility Vitamin B12 and Folate Today I10 - Essential (primary) hypertension, R25.1 - Tremor, unspecified, R26.89 - Other abnormalities of gait and mobility Vitamin D 25-OH Total Today I10 - Essential (primary) hypertension, R25.1 - Tremor, unspecified, R26.89 - Other abnormalities of gait and mobility Comprehensive Met. Panel Today I10 - Essential (primary) hypertension, R25.1 - Tremor, unspecified, R26.89 - Other abnormalities of gait and mobility Complete Blood Count Auto Diff Today I10 - Essential (primary) hypertension, R25.1 - Tremor, unspecified, R26.89 - Other abnormalities of gait and mobility PT Evaluation and Treatment Today R26.89 - Other abnormalities of gait and mobility Referrals Neurology Referral I10 - Essential (primary) hypertension, R25.1 - Tremor, unspecified, R26.89 - Other abnormalities of gait and mobility
[2024-08-31 11:08] VITALS: BP 120/84; PULSE 61; O2SAT 95; BMI 30.9
--- OUTSIDE RECORDS SUMMARY | 2024-09-02 14:53 | XMS_ITS | Continuity of Care Document ---
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 Name Role Phone Marilia Agarwal MD [id number] Date[facility]s): 07/29/24 - 08/28/24 [facility] [address] [place] [id number] Encounter Type: Triage Allergies, Adverse Reactions, Alerts No Known Medication Allergies Medications amLODIPine 10 mg oral tablet 10 mg, 1, tablet, By Mouth, Daily in AM, # 90 tablet, Refills 0, Maintenance, 04/28/20 2:13:00 PM EDT Start Date: 04/28/20 Status: Ordered Quantity: 90.0 Unit: tablet Repeat number: 1 LABS LABS, See Instructions, # 1 each, Refills 0, Tot. Refills 0, Maintenance, Laboratory Serum albumin Serum Calcium To be done 1 week from day of surgery, 10/03/20 12:26:00 PM EST, Supply Start Date: 10/03/20 Status: Ordered Quantity: 1.0 Unit: each Repeat number: 1 valsartan 160 mg oral tablet 160 mg, 1, tablet, By Mouth, Daily in AM, # 30 tablet, Refills 0, Maintenance, 04/28/20 2:13:00 PM EDT Start Date: 04/28/20 Status: Ordered Quantity: 30.0 Unit: tablet Repeat number: 1 Social History Social History Type Response Sex Male Sex Representation Male (finding) Patient Care team information Care Team Personnel Name: Marilia Agarwal MD Position: S Physician - Primary Care Member Role: PCP Address: [address] [place], [place] [address] Telecom: Care Team Related Persons Name: BRIANNA [place] Insurance Providers Guarantor name: [facility] Plan Information #: 1 Payer: [employer] Member Number: NA Policy Number: NA Group Number: NA
--- OUTSIDE RECORDS SUMMARY | 2024-09-02 14:53 | XMS_ITS ---
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 Role Phone Marilia Agarwal MD Primary Care Provider Mattie Melton Unavailable [phone] Allergies Allergen (clinical drug ingredient) Drug/Non Drug Allergy documented on EMR Reaction Allergy Type Onset Date Status amlodipine amLODIPine Besylate fatigue Drug Allergy Active REASON FOR VISIT pcp-11/2023, Foot pain Medications Medication SIG (Take, Route, Frequency, Duration) Notes Start Date End Date Status Calcium Citrate 250 MG 1 tablet Orally O nce a day Unknown Flaxseed Oil 1000 MG as directed Orally Unknown Vitamin D3 50 MCG (2000 UT) as directed Orally Once a day Unknown Glucosamine 500 MG 1 capsule with a meal Orally Three times a day Unknown Multivitamin Unknown hydroCHLOROthiazide 25 MG 1 tablet in th e morning Orally Once a day Active Lamisil 250mg 1 tablet orally Once daily for 30 days Not-Taking Turmeric Unknown PreserVision AREDS - as directed Orally Unknown Vitamin C & E Complex Unknown Valsartan 160 MG 1 tablet Orally Once a day Active Social History Tobacco Use: Social History Observation Description Date Details (start date - stop date) Never Smoker NA - NA Tobacco Use/Smoking Question Answer Notes Are you a: nonsmoker Additional Findings: Tobacco Non-User Current no n-smoker Alcohol Screen Question Answer Notes Did you have a drink containing alcohol in the p ast year? No Points 0 Interpretation Negative Tobacco use other than smoking: Question Answer Notes Are you an other tobacco user? 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 Problem [id number] 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) Active confirmed Problem [id number] Neuropathy (G62.9) Active confirmed Vital Signs Height 5 ft 8 in in 06/18/2024 Weight 205 lbs 06/18/2024 BMI 31.17 kg/m2 06/18/2024 Blood pressure systolic 135 mm Hg 06/18/20 24 Blood pressure diastolic 85 mm Hg 024 Encounters Encounter Location Date Provider Diagnosis [facility] [address] [address] 06/18/2024 Mattie Kramer Green's neuroma of left foot G57.62 ; Green's neuroma of right foot G57.61 ; Neuropathy G62.9 and Tinea unguium B35.1 Assessments Encounter Date Diagnosis (ICD Code) Assessment Notes Treatment Notes Treatment Clinical Notes Section Notes 06/18/2024 Green's neuroma of left foot (ICD-10 - G57.62) 06/18/2024 Green's neuroma of right foot (ICD-10 - G57.61) 06/18/2024 Neuropathy (ICD-10 - G62.9) 06/18/2024 Tinea unguium (ICD-10 - B35.1) Plan Of Treatment Next Appt Details Follow Up: 2 Months, Reason: Provider Name:Mattie conway, 11/02/2024 02:00:00 PM, [address] [place] [address], [place], [address], Progress Notes * Jose Juan LOUISDOB: [birth year] (83 yo M)Acc No.[id number]:06/18/2024 Progress Note Patient:?Jose Juan Louis Provider:?Mattie Kramer DPM :1940???Age:83 Y???Sex:Male Demond e:06/18/2024 Address:[address] [place] [address], [facility] Pcp:Marilia Agarwal MD Subjective: * Chief Complaints: * ???Pcp-11/2023Foot pain * HPI: ???Foot Pain:?Nature:?feels like feet are puffy on the bottom.?Location:?Bottom, B/L.?Duration:?several weeks.?Onset:?unknown.?Course:?worse.?Aggravated:?any pressure, standing, walking.? * ROS:?General/Constitutional:?Nausea?denies.?Vomiting?denies.?Hunger Thirst?denies.?Loss appetite?denies.?Chills?denies.?Fatigue?denies, admits.?Fever?denies.?Night Sweats?denies.?Unexplained weight loss?denies.?Unexplained weight gain?denies.?HEENTM:?Dentures?denies, admits.?Dizziness?denies.?Glasses/contacts?denies.?Retinopathy?denies.?Blurred/d ouble vision?denies.?TMJ?denies.?Discharge/drainage?denies.?Implants?denies.?Sore throat?denies.?Dental implants?denies.?Hard of hearing ?denies, admits.?Difficulty chewing/swallowing/speaking?denies.?Nose bleeds?denies.?Sore mouth?denies.?Respiratory:?On Oxygen?denies.?Pneumonia/pleurisy?denies.?Bronchitis?denies.?Emphysema?denies.?C oughing?denies.?Cough blood?denies.?Shortness of breath?denies.?Wheezing?denies.?Cardiovascular:?Pacemaker?denies.?MVP?denies.?WPW?denies.?CHF?denies.?Heart attack?denies.?Septal defect?denies.?Rapid beat?denies.?Chest pain ?denies.?Atrial Fib.?denies.?Murmur/Palpitations?denies.?Gastrointestinal:?Hemorrhoids?denies.?Stomach/Abdominal pain?denies.?Dark blood stool?denies.?Irritable bowel ?denies.?Constipation?denies.?Diarrhea?denies.?Hematology:?Swelling?denies.?Clots?denies.?Varicose Veins?denies.?Bruising?denies.?Bleeding problem?denies.?Genitourinary:?Blood urine?denies.?Frequent/Painfu/urination/bladder control?denies.?Kidney stones?denies.?Infection (UTI)?denies.?Nephropathy?denies.?sex trans dis (STD)?denies.?Prostate?denies.?Musculoskeletal:?Hammertoes?denies.?Bunions?denies.?Back Pain?denies.?Muscle Cramps/ Resting?denies.?Muscle cramps / walking?denies.?Generalized aches and pains?denies.?Weakness?denies.?Integ.:?[place]?denies.?Scars?denies.?Corns/calluses?denies.?Ingrown nails?denies.?Painful nails?denies.?Open Sores?denies.?Rashes?denies.?Neurologic:?Difficulty sleeping?denies.?Brain disorder?denies.?Numbness?denies.?Balance trouble?admits.?Confusion?denies.?Fainting/blackouts?denies.?Tingling?denies.?Tr emors?denies, admits.? * Medical History:? 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 per pt, many family members- heart attack. * Social History:?Tobacco Use:?Tobacco Use/Smoking?Are you a:?nonsmoker ?Additional Findings: Tobacco Non-User?Current non-smoker ?Tobacco use other than smoking?Are you an other tobacco user??No ???Drugs/Alcohol:?Drugs?Have you used drugs other than those for medical reasons in the past 12 months??No ?Alcohol Screen?Did you have a drink containing alcohol in the past year??No ?Points?0 ?Interpretation?Negative ???Miscellaneous:?Caffeine: yes, 1-2 cups per day. ?Children: yes, 1. ?no Exercise. ?Marital status: . 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 * Medications:?TakingValsartan 160 MG Tablet 1 tablet Orally Once a dayhydroCHLOROthiazide 25 MG Tablet 1 tablet in the morning Orally Once a dayTaking Valsartan 160 MG Tablet 1 tablet Orally Once a dayTaking hydroCHLOROthiazide 25 MG Tablet 1 tablet in the morning Orally Once a dayNot-Taking/PRNLamisil 250mg tablet 1 tablet orally Once dailyNot-Taking/PRN Lamisil 250mg tablet 1 tablet orally Once dailyUnknownPreserVision AREDS - Capsule as directed Orally Vitamin C & E Complex Turmeric Multivitamin Glucosamine 500 MG Capsule 1 capsule with a meal Orally Three times a dayFlaxseed Oil 1000 MG Capsule as directed Orally Vitamin D3 50 MCG (2000 UT) Capsule as directed Orally Once a dayCalcium Citrate 250 MG Tablet 1 tablet Orally Once a dayMedication List reviewed and reconciled with the patientUnknown PreserVision AREDS - Capsule as directed Orally Unknown Vitamin C & E Complex Unknown Turmeric Unknown Multivitamin Unknown Glucosamine 500 MG Capsule 1 capsule with a meal Orally Three times a dayUnknown Flaxseed Oil 1000 MG Capsule as directed Orally Unknown Vitamin D3 50 MCG (2000 UT) Capsule as directed Orally Once a dayUnknown Calcium Citrate 250 MG Tablet 1 tablet Orally Once a dayMedication List reviewed and reconciled with the patient * Allergies:?amLODIPine Besyla te: fatigueyes[Allergies Verified] Objective: * Vitals:?Ht: 5 ft 8 in, Wt: 2 05, BMI: 31.17, Shoe size: 10.5, BP: 135/85 mm Hg, Ht-cm: 172.72 cm, Wt-k.99 kg. * Examination: ???Neuroma Pain: ?PALPATION:? Pain with direct palpation of the intermetatarsal space, Pain with lateral compression of metatarsals, positive Ioana's click, 2nd interspace, 3rd interspace, B/L.?General Examination: ?GENERAL APPEARANCE:?Reveals a pleasant, alert, well nourished, well- developed, well hydrated individual, who demonstrates proper attention to hygiene/body habitus, and is in no acute distress, Pt serves as own historian for office visit today.?ORIENTED:?person, place, and time.?Vascular: ?DP PULSES(B):?3/4, B/L.?PT PULSES(B):?3/4, B/L.?CAPILLARY FILL TIME:?immediate, all digits, B/L.?TROPHIC CONDITION-TEXTURE/ELASTICITY/TURGOR/HAIR GROWTH(B):?normal, B/L.?TEMPERTURE GRADIENT(C):?normal, warm to cool, proximal to distal, B/L, B/L.?PIGMENTATION:?normal, B/L.?Neurological: ?SENSORY:?Neurological exam demonstrates , reduced light touch sensation , Pt relates , paresthesia , B/L.?Orthopedic: ?MUSCLE STRENGTH:?5/5 all groups in a symmetrical fashion , B/L.?Nails: ?NAILS are:?Elongated, overgrown, dystrophic, lytic, greater than 3mm thick, discolored and friable with crumbly malodorous subungual debris, with pain on palpation, 1-5 B/L.? Assessment: * Assessment: 1.?Green's neuroma of right foot - G57.61?2.?Green's neuroma of left foot - G57.62?3.?Neuropathy - G62.9?4.?Tinea unguium - B35.1? Plan: * Treatment: * Procedure Codes:? * Preventive Medicine:? ??Counseling:?Discussion:?-14: Office or other outpatient visit for the evaluation and management of an established patient, which required a medically appropriate history and/or examination and MODERATE level of DECISION MAKING for: 1 OR MORE CHRONIC PROBLEM(S) THATS WORSENING, 2 STABLE CHRONIC PROBLEMS, A NEWLY DIAGNOSED PROBLEM WITH UNCERTAIN PROGNOSIS, AN ACUTE COMPLICATED INJURY WITH MULTIPLE TREATMENT OPTIONS, OR AN ACUTE PROBLEM WITH ACCOMPANYING SYSTEMIC SYMPTOMS, THAT POSE(S) A MODERATE RISK OF MORBIDITY. THIS CONDITION MAY ALSO INCLUDE RX DRUG MANAGEMENT, OR A DECISON FOR MINOR SURGERY. The visit on the day of the encounter encompassed interpreting the data and educating the patient as to the nature of their condition, treatment options available according to their individual PMH, meds, allergies, and overall health/living conditions, as well as any potential risks or complications that may occur from a failure to adhere to, and participate in, the recommended course of therapy. The discussion included a complete verbal, and/or written explanation of the examination results, any x-rays taken, the proposed diagnosis, and outline of the treatment plan. A schedule for future care needs was also explained. The patient verbalized an understanding of the instructions at this time and agreed to be an active participant in their treatment. If the patient should think of any questions or concerns after the visit, I have encouraged the patient to call the office.?F/U Fungal nails:?Reviewed with the patient the time needed before we start seeing results with the oral Lamisil. Discussed the results that we hope to see and that brianna a topical medication to the nails may also help. We discussed the duration of time that the Lamisil will work on the nails for. We should wait 1 year before we take the Lamisil again..?Neuroma:?The patient was counseled on the diagnosis, possible etiologies (including foot structure/foot function/nonsupportive shoes/activity), treatment options, and importance for adherence to recommendations regarding the treatment for a Neuroma. The advantages and disadvantages of the treatment options including medications available, forefoot offloading padding, mechanically accomidative orthotics, supportive shoegear with adequate forefoot width, cortisone injection(s), experimental sclerosis therapy, and surgical treatment options including nerve release, nerve relocation, and complete nerve removal were discussed in detail with each procedures outcomes and possible sequlea (i.e.failure of procedure, stump neuroma formation, infection, chronic scarring, chronic pain). Patient questions re: the potential successes of conservative vs surgical treatment options were reviewed and their answers were understood. The patient verbally confirmed a full understanding of the above.?Orthotics:?I explained to the patient the benefits of OT use. I explained that orthoses are medically necessary to decrease the foot pain through proper mechanical control, support of their foot, decrease pain under the painful neuroma by spreading the adjacent metatarsals and supplementing the soft tissue.?Shoe Gear Counseling:?The patient and I reviewed the types of shoes they should be wearing. My recommendation included obtaining a well-fitted shoe with a good supportive, non-foldable nor twistable sole, plenty of toe/room for the forefoot, and proper arch support. Based on todays examination, I recommended the patient look for new shoes, by having their feet professionally measured. We discussed that generally the best time of the day for a shoe fitting is the afternoon. Different shoes types and brands to best match the patients occupation and vocation were discussed. Specific brand selection will be up to the patient, their individual foot condition/deformities, and fit. The patient and I reviewed the standard new shoe break in period by wearing them for a few hours a day while checking for redness or sores as wear time is increased. The patient verbally confirmed to understanding the information discussed.?Steriod Injection:?I explained that a steroid and local anesthetic injections are administered to relieve pain and inflammation and thereby meant to improve function. I explained the possible complications including but not limited to signs/symptoms of steroid flare, infection, bruising, atrophy, discoloration of skin, change/deviation in toe position, and that additional injections may be necessary, cortisone post-injection informative educational handout was dispensed to and reviewed with the patient.? * Follow Up:?2 Months * Images: * Sign off status: Completed true * Provider:?Mattie Kramer DPM Date:? Generated for Cherry tillman/Maria Elena/eTransmitting on:?09/02/2024 02:53 PM EST History and Physical Notes * HPI (History of Present Illness) Category Sub-Category Detail Notes Category Not es Foot Pain Nature: feels like feet are puffy on the bottom Location: Bottom, B/L Duration: several weeks Onset: unknown Course: worse Aggravated: any pressure, standi ng, walking Examination Category Sub-Category Detail Notes Category Not es Neuroma Pain PALPATION: Pain with direct palpation of the intermetatarsal space, Pain with lateral compression of metatarsals, positive Ioana's click, 2nd interspace, 3rd interspace, B/L Neurological SENSORY: Neurological exa m demonstrates , reduced light touch sensation , Pt relates , paresthesia , B/L Orthopedic MUSCLE STRENGTH: 5/5 all groups in a symmetrical fashion , B/L General Examination GENERAL APPEARANCE: Reveals a pleasant, alert, well nourished, well-developed, well hydrated individual, who demonstrates proper attention to hygiene/body habitus, and is in no acute distress, Pt serves as own historian for office visit today ORIENTED: person, place, and t maricel Vascular DP PULSES(B): 3/4, B/L PT PULSES(B): 3/4, B/L CAPILLARY FILL TIME: immediate, all digi ts, B/L TEMPERTURE GRADIENT(C): normal, warm to cool, proximal to distal, B/L, B/L TROPHIC CONDITION-TEXTURE/ELASTICITY/TURGOR/HAIR GROWTH(B): normal, B/L PIGMENTATION: normal, B/L Nails NAILS are: Elongated, overg rown, dystrophic, lytic, greater than 3mm thick, discolored and friable with crumbly malodorous subungual debris, with pain on palpation, 1-5 B/L
--- OUTSIDE RECORDS SUMMARY | 2024-09-02 14:53 | XMS_ITS ---
Author Organization [facility] Address [address] [place] [address] Care Team Providers Care Hotel Sales Manager Name Role Phone Marilia Agarwal MD Primary Care Provider Mattie Melton Unavailable [phone] Allergies Allergen (clinical drug ingredient) Drug/Non Drug Allergy documented on EMR Reaction Allergy Type Onset Date Status amlodipine amLODIPine Besylate fatigue Drug Allergy Active REASON FOR VISIT Foot pain, Painful nail(s) aggravated by shoes causing difficulty standing/walking Medications Medication SIG (Take, Route, Frequency, Duration) Notes Start Date End Date Status PreserVision AREDS - as directed Orally Active hydroCHLOROthiazide 25 MG 1 tablet in morning Orally Once a day Active Valsartan 160 MG 1 tablet Orally Once a day Active LamISIL 250mg 1 tablet orally Once daily for 30 days Not-Taking Fluorouracil 5 % External for 30 Days Active Glucosamine 500 MG 1 capsule with a meal Orally Three times a day Active Multivitamin Active Calcium Citrate 250 MG 1 tablet Orally O nce a day Active Vitamin D3 50 MCG (1999) as directed Orally Once a day Active Flaxseed Oil 1000 MG as directed Orally Active Turmeric Active Vitamin C & E Complex Active Social History Tobacco Use: Social History Observation Description Date Details (start date - stop date) Never Smoker NA - NA Tobacco use other than smoking: Question Answer Notes Are you an other tobacco user? No Tobacco Control (Standard) Question Answer Notes Tobacco use: Nonsmoker Additional Findings: Tobacco non-user Current no nsmoker AUDIT-C (Standard) Question Answer Notes Did you have a drink containing alcohol in the p ast year? No Points 0 Interpretation Negative Vital Signs Height 5 ft 8 in in 08/27/2024 Weight 205 lbs 08/27/2024 BMI 31.17 kg/m2 08/27/2024 Blood pressure systolic 135 mm Hg 08/27/20 24 Blood pressure diastolic 85 mm Hg 024 Encounters Encounter Location Date Provider Diagnosis [facility] [address] [address] 08/27/2024 Mattie Kramer Green's neuroma of left foot G57.62 ; Green's neuroma of right foot G57.61 ; Neuropathy G62.9 ; Tinea unguium B35.1 ; Pain in right toe(s) M79.674 and Pain in left toe(s) M79.675 Assessments Encounter Date Diagnosis (ICD Code) Assessment Notes Treatment Notes Treatment Clinical Notes Section Notes 08/27/2024 Green's neuroma of left foot (ICD-10 - G57.62) 08/27/2024 Green's neuroma of right foot (ICD-10 - G57.61) 08/27/2024 Neuropathy (ICD-10 - G62.9) 08/27/2024 Tinea unguium (ICD-10 - B35.1) 08/27/2024 Pain in right toe(s) (ICD-10 - M79.674) 08/27/2024 Pain in left toe(s) (ICD-10 - M79.675) Plan Of Treatment Next Appt Details Follow Up: 2 Months, Reason: Provider Name:Mattie conway, 11/02/2024 02:00:00 PM, [address] [facility], [place], [address], Procedure Notes * Category Sub-Category Detail Notes Debride Nail 6-10 Nail debridement Due to the cl inical pathology outlined in the exam findings, performance of this nail treatment is medically necessary as its management by an unskilled/untrained nonprofessional would put this patients foot and overall health at risk. Therefore, debridement to affected nail(s), as described in exam, was performed extensively to reduce/remove overall nail length, girth, thickness, subungual debris, and necrotic tissue, by manual and/or electrical means through the use of a nail nipper and/or dremel-type shot grinder operator, to a more viable healthy nail plate or bed tissue 6-10 nails in total. Silver nitrate was used for any petechial bleeding as necessary. Definitive antifungal treatment options, both pharmaceutical and surgical, have been reviewed and discussed with the patient. The patient solely prefers the use of intermittent/as needed professional debridement services for their nail condition and understands the need for additional periodic treatments to maintain effectiveness in symptomatic relief - 06260 Progress Notes * MISSYJose Juan BUSHDOB: [birth year] (84 yo M)Acc No.[id number]:08/27/2024 Progress Note Patient:?Jose Juan LOUIS Provider:?Mattie Kramer DPM :1940???Age:84 Y???Sex:Male Demond e:08/27/2024 Address:[address] [place] [address] Pcp:Marilia Agarwal MD Subjective: * Chief Complaints: * ???Foot painPainful nail(s) aggravated by shoes causing difficulty standing/walking * HPI: ???Foot Pain:?Nature:?feels like feet are puffy on the bottom.?Location:?Bottom, B/L.?Duration:?several weeks.?Onset:?unknown.?Course:?unchanged.?Aggravated:?any pressure, standing, walking.?Treatments:?innersoles.?Painful Nails:?Pt States Last PCP Visit:?Date:?11/27/2023 * ROS:?General/Constitutional:?Nausea?denies.?Vomiting?denies.?Hunger Thirst?denies.?Loss appetite?denies.?Chills?denies.?Fatigue?denies, admits.?Fever?denies.?Night Sweats?denies.?Unexplained weight [...] 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 per pt, many family members- heart attack. * Social History:?Tobacco Use:?Tobacco use other than smoking?Are you an other tobacco user??No ?Tobacco Control (Standard)?Tobacco use:?Nonsmoker ?Additional Findings: Tobacco non-user?Current nonsmoker ???Drugs/Alcohol:?Drugs?Have you used drugs other than those for medical reasons in the past 12 months??No ???Miscellaneous:?Caffeine: yes, 1-2 cups per day. ?Children: yes, 1. ?Exercise: no. ?Marital status: . 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 ???Drug/Alcohol:?AUDIT-C (Standard)?Did you have a drink containing alcohol in the past year??No ?Points?0 ?Interpretation?Negative * Medications:?TakingValsartan 160 MG Tablet 1 tablet Orally Once a day hydroCHLOROthiazide 25 MG Tablet 1 tablet in the morning Orally Once a day PreserVision AREDS - Capsule as directed Orally Vitamin C & E Complex Turmeric Multivitamin Glucosamine 500 MG Capsule 1 capsule with a meal Orally Three times a day Flaxseed Oil 1000 MG Capsule as directed Orally Vitamin D3 50 MCG (2000 UT) Capsule as directed Orally Once a day Calcium Citrate 250 MG Tablet 1 tablet Orally Once a day Fluorouracil 5 % Cream External Taking Valsartan 160 MG Tablet 1 tablet Orally Once a day Taking hydroCHLOROthiazide 25 MG Tablet 1 tablet in the morning Orally Once a day Taking PreserVision AREDS - Capsule as directed Orally Taking Vitamin C & E Complex Taking Turmeric Taking Multivitamin Taking Glucosamine 500 MG Capsule 1 capsule with a meal Orally Three times a day Taking Flaxseed Oil 1000 MG Capsule as directed Orally Taking Vitamin D3 50 MCG (2000 UT) Capsule as directed Orally Once a day Taking Calcium Citrate 250 MG Tablet 1 tablet Orally Once a day Taking Fluorouracil 5 % Cream External Not-Taking/PRNLamISIL 250mg tablet 1 tablet orally Once daily Medication List reviewed and reconciled with the patientNot-Taking/PRN LamISIL 250mg tablet 1 tablet orally Once daily Medication List reviewed and reconciled with the patient * Allergies:?amLODIPine Besyla te: fatigueyes[Allergies Verified] Objective: * Vitals:?Ht: 5 ft 8 in, Wt: 2 05, BMI: 31.17, Shoe size: 10.5, BP: 135/85 mm Hg, Ht-cm: 172.72 cm, Wt-k.99 kg. * Examination: ???Neuroma Pain: ?PALPATION:?NO Pain with direct palpation of the intermetatarsal space, No?Pain with lateral compression of metatarsals, negative Ioana's click, 2nd interspace, 3rd interspace, B/L.?General [...] subungual debris, with pain on palpation, 1-5 B/L?.? Assessment: * Assessment: 1.?Green's neuroma of right foot - G57.61 (Primary)???2.?Green's neuroma of left foot - G57.62???3.?Neuropathy - G62.9???4.?Tinea unguium - B35.1???5.?Pain in right toe(s) - M79.674???6.?Pain in left toe(s) - M79.675??? Plan: * Treatment: * Procedures:?Debride Nail 6-10:?Nail debridement?Due to the clinical pathology outlined in the exam findings, performance of this nail treatment is medically necessary as its management by an unskilled/untrained nonprofessional would put this patients foot and overall health at risk. Therefore, debridement to affected nail(s), as described in exam, was performed extensively to reduce/remove overall nail length, girth, thickness, subungual debris, and necrotic tissue, by manual and/or electrical means through the use of a nail nipper and/or dremel-type shot grinder operator, to a more viable healthy nail plate or bed tissue 6-10 nails in total. Silver nitrate was used for any petechial bleeding as necessary. Definitive antifungal treatment options, both pharmaceutical and surgical, have been reviewed and discussed with the patient. The patient solely prefers the use of intermittent/as needed professional debridement services for their nail condition and understands the need for additional periodic treatments to maintain effectiveness in symptomatic relief - 80579.? * Procedure Codes:?55097 DEBRI DE NAIL, 6 OR MORE * Preventive Medicine:? ??Counseling:?Discussion:?-12: Office or other outpatient visit for the evaluation and management of an established patient, which required a medically appropriate history and/or examination and STRAIGHTFORWARD level of MEDICAL DECISION MAKING, 1 SELF-LIMITED OR MINOR PROBLEM, MINIMAL- NO AMOUNT/COMPLEXITY OF DATA TO BE REVIEWED/ANALYZED, AND MINIMAL RISK OF COMPLICATION/MORBIDITY. The visit on the day of the [...] have encouraged the patient to call the office.?Neuroma:?Discussed other tx options for the patients condition, pt defers any other treatment.?Steriod Injection:?Pt defers injection today.? * Follow Up:?2 Months * Images: * Sign off status: Completed true * Provider:?Mattie Kramer, DPM Date:?01/2024 Generated for Printi ng/Falindag/eTransmitting on:?09/02/2024 02:52 PM EST History and Physical Notes * HPI (History of Present Illness) Category Sub-Category Detail Notes Category Not es Painful Nails Pt States Last PCP Visit: Date:: 11/27/2023 Foot Pain Nature: feels like feet are puffy on the bottom Location: Bottom, B/L Duration: several weeks Onset: unknown Course: unchanged Aggravated: any pressure, standi ng, walking Treatments: innersoles Examination Category Sub-Category Detail Notes Category Not es Neuroma Pain PALPATION: NO Pain with dir ect palpation of the intermetatarsal space, No Pain with lateral compression of metatarsals, negative Ioana's click, 2nd interspace, 3rd interspace, B/L [...]
--- OUTSIDE RECORDS SUMMARY | 2024-09-02 14:53 | XMS_ITS | Patient Health Record ---
Author Organization [facility] randy Romney Address [address] [place] [address] Care Team Providers Care Motor Assembler Name Role Phone Marilia Agarwal MD Primary Care Provider Mattie Melton Unavailable [phone] Allergies Allergen (clinical drug ingredient) Drug/Non Drug Allergy documented on EMR Reaction Allergy Type Onset Date Status amlodipine amLODIPine Besylate fatigue Drug Allergy Active Reason For Referral Diagnosis 1 Pain in unspecified foot (M79.673) Referring Provider First Name Marilia Referring Provider Last Name Stefano [facility] Referred Provider Mattie Kramer Referred Address [address] [facility],[place], [place],[address], Referred Provider Specialty Podiatry Referral Priority Routine Medications Medication SIG (Take, Route, Frequency, Duration) Notes Start Date End Date Status Glucosamine 500 MG 1 capsule with a meal Orally Three times a day Active Multivitamin Active Turmeric Active Vitamin C & E Complex Active PreserVision AREDS - as directed Orally Active hydroCHLOROthiazide 25 MG 1 tablet in th e morning Orally Once a day Active Valsartan 160 MG 1 tablet Orally Once a day Active LamISIL 250mg 1 tablet orally Once daily for 30 days Not-Taking Fluorouracil 5 % External for 30 Days Active Calcium Citrate 250 MG 1 tablet Orally O nce a day Active Vitamin D3 50 MCG (1999 UT) as directed Orally Once a day Active Flaxseed Oil 1000 MG as directed Orally Active Social History Tobacco Use: Social History [...] ast year? No Points 0 Interpretation Negative Problems Problem Type SNOMED Code ICD Code Onset Dates Problem Status W/U Status Risk Notes Problem [id number] Neuropathy (G62.9) Active confirmed Problem [id number] 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) Active confirmed Problem Green's neuroma of left foot (297664108271456) 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) Active confirmed Vital Signs Blood pressure diastolic 85 mm Hg 08/27/2024 Height 5 ft 8 in in 08/27/2024 Blood pressure systolic 135 mm Hg 08/27/2024 Weight 205 lbs 08/27/2024 BMI 31.17 kg/m2 08/27/2024 Encounters Encounter Location Date Provider Diagnosis [address] [address] 01/27/2024 Mattie Perica Fungal infection of nail B35.1 ; Pain in right toe(s) M79.674 and Pain in left toe(s) M79.[address] [address] 04/06/2024 Mattie Perica Fungal infection of nail B35.1 ; Pain in right toe(s) M79.674 and Pain in left toe(s) M79.[address] [address] 06/18/2024 Mattie Perica Green's neuroma of left foot G57.62 ; Green's neuroma of right foot G57.61 ; Neuropathy G62.9 and Tinea unguium B35.[address] [address] 08/27/2024 Mattie Perica Green's neuroma of left foot G57.62 ; Green's neuroma of right foot G57.61 ; Neuropathy G62.9 ; Tinea unguium B35.1 ; Pain in right toe(s) M79.674 and Pain in left toe(s) M79.[address] [facility] [address] 11/21/2023 Mattie Kramer [facility] [address] [address] 12/09/2023 Mattie Perica [facility] [address] [address] 01/28/2024 [facility] [address] 04/09/2024 Mattie Kramer Assessments Encounter Date Diagnosis (ICD Code) Assessment Notes Treatment Notes Treatment Clinical Notes Section Notes 01/27/2024 Pain in right toe(s) (ICD-10 - M79.674) 01/27/2024 Fungal infection of nail (ICD-10 - B35.1) Rx management (4) 04/06/2024 Pain in right toe(s) (ICD-10 - M79.674) 04/06/2024 Fungal infection of nail (ICD-10 - B35.1) Rx management (4) 06/18/2024 Green's neuroma of right foot (ICD-10 - G57.61) 06/18/2024 Green's neuroma of left foot (ICD-10 - G57.62) 08/27/2024 Green's neuroma of right foot (ICD-10 - G57.61) 08/27/2024 Green's neuroma of left foot (ICD-10 - G57.62) 01/27/2024 Pain in left toe(s) (ICD-10 - M79.675) 06/18/2024 Neuropathy (ICD-10 - G62.9) 08/27/2024 Neuropathy (ICD-10 - G62.9) 04/06/2024 Pain in left toe(s) (ICD-10 - M79.675) 06/18/2024 Tinea unguium (ICD-10 - B35.1) 08/27/2024 Tinea unguium (ICD-10 - B35.1) 08/27/2024 Pain in right toe(s) (ICD-10 - M79.674) 08/27/2024 Pain in left toe(s) (ICD-10 - M79.675) Plan Of Treatment Pending Test Test Name Order Date *Liver Function Test (LFT) 01/27/2024 *Liver Function Test (LFT) 04/06/2024 Next Appt Details Provider Name:Mattie Conway Manuela conway, 11/02/2024 02:00:00 PM, [address] [facility], [place], [address], Insurance Providers Payer Name Payer Address Payer Phone Subscriber Number Group Number Insured Name Patient Relationship to Insured Coverage Start Date Coverage End Date [facility] [address] [place] [phone] [id number] Jose Juan Sen Self - patient is the insured Medical (General) History Medical History History ICD Code fatigue prostate cancer Hypertension Osteopenia Osteoporosis Hyperparathyroidism skin cancer Vitamin D deficiency Non-toxic multinodular goiter Back,Hip,and Knee pain Broken bones Cancer Macular degeneration Surgical History Surgery Date(Month/Year) parathyroidectomy knee surgery, left tonsillectomy Tooth extraction umbilical hernia 03/22/2023 removal of malignant neoplasm of skin left knee replacement 09/2019 tumor removal- basal cell 08/16
--- OUTSIDE RECORDS SUMMARY | 2024-09-02 14:53 | XMS_ITS ---
Author Organization [facility] Address [address] [place] [address] Care Team Providers Care Residence Life Director Name Role Phone Marilia Agarwal MD Primary Care Provider Mattie Melton [phone] REASON FOR VISIT Labs Encounters Encounter Location Date Provider Diagnosis [address] [place] [address] 04/09/2024 Mattie Kramer Plan Of Treatment Next Appt Details Provider Name:Mattie conway, 11/02/2024 02:00:00 PM, [address] [place] [address], [place], [address], Progress Notes * Jose Juan LOUISDOB: [birth year] (83 yo M)Acc No.[id number]:04/09/2024 Patient:?Jose Juan Louis :1940???Age:83 Y???Sex:Male Address:[address] [place] [address] * true * Date:? Generated for Printi ng/Falindag/eTransmitting on:?09/02/2024 02:53 PM EST
== END 2024-08-31 12:19 | disposition home or self-care (01) ==
PROVIDERS: PCP Internal Medicine; Visit Provider Internal Medicine
DX: R25.1 Tremor, unspecified (principal); E21.0 Primary hyperparathyroidism; R26.89 Other abnormalities of gait and mobility; I10 Essential (primary) hypertension; G62.9 Polyneuropathy, unspecified

== ENCOUNTER 2024-08-31 10:58 | Outpatient (REF) | payer MEDICARE, SELFPAY ==
[2024-08-31 13:23] LABS: MANUAL DIFF FLAG NO
[2024-08-31 13:26] LABS: Basophils Percent Auto 0.5 % (0-2); Eosinophils Percent Auto 0.7 % (0-4); Hematocrit 45.4 % (42.0-52.0); Hemoglobin 15.6 g/dl (14.0-18.0); Imm Gran Abs Auto 0.07 X10*3/uL (0.00-0.03); Imm Gran Pct Auto 1.3 % (0.0-0.4); Lymphocytes Absolute Auto 1.3 X10*3/uL (1.2-4.9); Lymphocytes Percent Auto 22.4 % (20-40); Mean Corpuscular HGB Conc 34.4 g/dl (31.0-36.0); Mean Corpuscular Hemoglobin 32.2 pg (27.0-33.0); Mean Corpuscular Volume 93.8 fL (80.0-98.0); Mean Platelet Volume 9.7 fL (9.4-12.4); Monocytes Absolute Auto 0.6 X10*3/uL (0.1-1.2); Neutrophils Absolute Auto 3.6 x10*3/uL (2.0-8.3); Neutrophils Percent Auto 64.1 % (45-73); Platelet Count 209 X10*3/uL (160-400); Red Blood Count 4.84 X10*6/uL (4.60-5.80); Red Cell Distribution Width 12.5 % (11.0-16.0); White Blood Count 5.6 X10*3/uL (4.8-10.8)
[2024-08-31 14:16] LABS: Alanine Aminotransferase 22 U/L (0-40); Albumin Level 4.5 g/dL (3.5-5.0); Alkaline Phosphatase 54 U/L (39-117); Anion Gap 14 (12-20); Aspartate Amino Transferase 26 U/L (5-37); Bilirubin Total 0.3 mg/dL (0.0-1.0); Blood Urea Nitrogen 22 mg/dL (9-16); Calcium 9.8 mg/dL (8.4-10.2); Carbon Dioxide 31 mmol/L (22-29); Chloride 101 mmol/L (96-108); Estimated Glomerular Filt Rate > 60; Glucose Random 90 mg/dL (60-115); Potassium 4.6 mmol/L (3.3-5.1); Sodium 141 mmol/L (135-145); Total Protein 7.1 g/dL (6.5-8.0)
[2024-08-31 14:31] LABS: TSH reflex Free T4 2.44 uIU/mL (0.32-4.0); Vitamin D 25-OH Total 66.4 ng/mL (>30)
[2024-08-31 14:45] LABS: Folate > 20.0 ng/mL (> or = 4.0); Vitamin B12 932 pg/mL (200-900)
== END 2024-08-31 10:59 | disposition home or self-care (01) ==
LOC: HO.HMGCLDS 10:58
PROVIDERS: PCP Internal Medicine; Visit Provider Internal Medicine
DX: R25.1 Tremor, unspecified (principal); R26.89 Other abnormalities of gait and mobility; I10 Essential (primary) hypertension; G62.9 Polyneuropathy, unspecified; E21.0 Primary hyperparathyroidism
CPT/HCPCS: 36415; 80053; 82306; 82607; 82746; 84443; 85025; 96127; 99212

== ENCOUNTER → 2024-10-29 07:20 | Outpatient (BNV) | payer MEDICARE, SELFPAY | PROVIDERS: PCP Internal Medicine; Visit Provider Radiology Diagnostic Radiology | DX: G20.A1 Parkinson's disease without dyskinesia, without mention of fluctuations (principal) | CPT/HCPCS: 70450 ==

== ENCOUNTER 2025-02-25 08:53 | Outpatient (REF) | payer MEDICARE, SELFPAY ==
[2025-02-25 10:45] LABS: Anion Gap 12 (12-20); Blood Urea Nitrogen 33 mg/dL (9-16); Calcium 9.7 mg/dL (8.4-10.2); Carbon Dioxide 30 mmol/L (22-29); Chloride 103 mmol/L (96-108); Estimated Glomerular Filt Rate > 60; Glucose Random 84 mg/dL (60-115); Potassium 4.4 mmol/L (3.3-5.1); Sodium 141 mmol/L (135-145)
== END 2025-02-25 08:54 | disposition home or self-care (01) ==
LOC: HO.HMGCLDS 08:53
PROVIDERS: PCP Internal Medicine; Referring Provider Internal Medicine
DX: I10 Essential (primary) hypertension (principal)
CPT/HCPCS: 36415; 80048

== ENCOUNTER → 2025-03-04 09:42 | Outpatient (BNVA) | payer MEDICARE, SELFPAY | PROVIDERS: PCP Internal Medicine | DX: I83.12 Varicose veins of left lower extremity with inflammation (principal) | CPT/HCPCS: 99202 ==

== ENCOUNTER 2025-03-04 13:07 | Outpatient (AMB) | payer MEDICARE, SELFPAY ==
--- NOTE | 2025-03-04 13:11 | A.OFFVIS_ITS ---
Vital Signs 03/04/25 13:16 Height 5 ft 8 in Weight 203 lb BMI 30.9 Intake Visit Reasons: B/L Varicose veins Intake Note: pt states bilateral LE VV. Pt states Left LE worse than the right LE. 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 Pt states compression socks daily and helps. 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 Due to this, he wears a compressive sleeve 15/04 to manage the discomfort; if not worn, he experiences aching in the left leg. The patient mentions a significant decrease in jogging activities since undergoing a left knee replacement, which has affected his previous exercise routine. He has no history of smoking or diabetes, and he continues to maintain an exercise routine by attending a fitness center. It has been affecting there daily activities including walking. It is noted more so in left leg. Patient denies any previous venous surgery or injections. Patient denies any history of DVT/ PE. Patient denies any history of phlebitis. Trial of compression includes - [id number], along with compressive sleeves They now present for vascular evaluation regarding their varicose veins. [facility] Medical History Osteoporosis Vitamin D deficiency Fatigue Skin cancer Hypertension History of prostate cancer Osteopenia Non-toxic multinodular goiter Primary hyperparathyroidism Surgical History Umbilical hernia (03/22/23) Hx of tooth extraction History of parathyroid surgery Status post surgical removal of malignant neoplasm of skin Hx of left knee surgery Hx of tonsillectomy Family History Father Hypertension Lung cancer Mother No problems noted. Brother Mental health disorder Social History Household Members Other:: Lives alone, 2 adult children in [place] and [place], Housing: House Alcohol intake: never Patient Tobacco Use Status: Never used Tobacco e-Cigarette/Vaping Use: Never Used Current occupational status: retired Cognitive needs: No Hearing needs: Yes Vision needs: No Review of Systems Const Reports as per HPI ENT Reports no additional complaints Card Denies chest pain, Denies chest pain at rest and Denies chest pain with activity Resp Denies chest congestion and Denies cough GI Reports no additional complaints Musc Details: pain over varicosities, aching of lower extremities, swelling, cramping, heaviness and tiredness, itching Denies abnormal gait Skin/Breast Reports pruritus and Denies wounds Neuro Reports no additional complaints and Denies abnormal gait Psych Denies no additional complaints Physical Exam Vital Signs: BMI result Body Mass Index 30.9 Const General: cooperative, healthy appearing and comfortable Orientation/consciousness: oriented to person, oriented to place and oriented to time Neck Carotids: no bruits Chest Chest palpation & inspection: normal inspection of the chest and normal palpation of entire chest wall Resp Effort & Inspection: normal respiratory effort and able to speak in complete sentences Cardio Rate: regular rate Heart sounds: S1 normal heart sound present and S2 normal heart sound present Peripheral pulses: Peripheral pulses 2+ throughout GI Inspection: Yes normal to inspection Skin Other: +2 edema, large rope-like varicosities greater than 4 mm CEAP Classification C4 - skin color changes Ep - Etiology Primary As - superficial veins P - reflux General skin exam: dry skin Neuro General: oriented to person, oriented to place and oriented to time Extrem Right lower extremity: full ROM, normal capillary refill and edema Left lower extremity: full ROM, normal capillary refill and edema Psych Mental Status: mental status grossly normal Assessment & Plan Assessment & Plan (1) Varicose veins of left lower extremity with inflammation: Code(s): I83.12 - Varicose veins of left lower extremity with inflammation Category: Medical Plan: In short, the patient has evidence of venous insufficiency. I have discussed the pathophysiology with the patient. In addition I have provided informational material regarding venous disease to the patient. We have disc ussed conservative measures including compression, elevation, and exercise. I have also provided a handout regarding appropriate use of compression stockings and where to purchase good compression stockings as well. I have taken the liberty of ordering venous insufficiency testing with the patient. They will follow up with me after testing. The patient had an opportunity to ask questions regarding the treatment plan. All questions were answered. Imaging studies, laboratory studies and physical exam results were discussed and reviewed in detail. No major barriers to understanding were identified. The patient expressed understanding and agreement with the above treatment plan. The patient is aware they should contact our office by phone for worsening of the current condition or the appearance of new symptoms. Thank you for allowing me to participate in the vascular care of this patient. If you have any questions or concerns regarding the treatment for the above condition please do not hesitate to contact me. The office telephone contact is [phone]. This note is constructed using voice recognition software. While every effort has been made to ensure accuracy, customs and border protection inspector errors may have been included. Thank you for allowing me to participate in the care of your patient. Yours sincerely, Sushant Luong MD, FACS, R.P.V.I. Orders: Orders US venous duplex LE BI 1 Week I83.12 - Varicose veins of left lower extremity with inflammation Coding Level of Care Code New Pt Level 4 (26663) Diagnoses Varicose veins of left lower extremity with inflammation I83.12
[2025-03-04 13:16] VITALS: BMI 30.9
== END 2025-03-04 13:57 | disposition home or self-care (01) ==
LOC: HO.HVS 13:08
PROVIDERS: PCP Internal Medicine; Visit Provider Surgery Vascular Surgery
DX: I83.12 Varicose veins of left lower extremity with inflammation (principal)
CPT/HCPCS: 99204

== ENCOUNTER 2025-03-15 10:56 | Outpatient (AMB) | payer MEDICARE, SELFPAY ==
--- NOTE | 2025-03-15 11:17 | A.OFFVIS_ITS ---
Vital Signs 03/15/25 11:18 Height 5 ft 8 in Weight 204 lb BMI 31.0 BP 142/90 H Blood Pressure Location Rt brachial Position Sitting Intake Visit Reasons: INP - Tremors Intake Note: patient referred in house by Marilia Agarwal for tremors. Allergies amlodipine Adverse Reaction (Intermediate, Verified 03/15/25 11:24) fatigue Medication List - Last Reconciled 03/15/25 by Darya Desir MD calcium citrate 250 mg PO DAILY cholecalciferol (vitamin D3) 50 mcg PO DAILY 30 days flaxseed oil ([place]-3 Flaxseed Oil) 1,000 mg PO DAILY glucosamine sulfate (Glucosamine) 500 mg PO DAILY hydrochlorothiazide 25 mg PO DAILY ibuprofen 800 mg PO QID PRN multivitamin 1 tab PO DAILY nifedipine ER 30 mg PO DAILY [tumeric PO] valsartan 160 mg PO BID vitamin C-vitamin E 500-400 mg-unit caps PO vitamins A,C,O-dzfq-kisudq 4,296 mcg-226 mg-90 mg (PreserVision AREDS) 1 cap PO BID HPI Comments Details: 84y/o Right handed male comes for neurological evaluation . 1 year ago 2023- February he had COVID followed by Brain fog , loss of sense of taste, fatigue , poor balance and left hand tremors. Brain fog , sense of taste , fatigue and balance improved but he still has tremors in his left hand . he was seen by who diagnosed him with Parkinsons and trialed on carbidopa/levodopa but patient did not noticed improvement with about 6 tabs a day so he stopped. The tremors in his left hand is in certain positions and is intermittent. He has mild difficulty with hand writing , using utensils etc. Speech- no change No drooling He has some difficulty putting his socks on.No problem with showers. It is harder to get out of bed. His gait is slower - more consious, has had many falls but being careful now. No change in mood SLeep- OK he lives alone , has vivid dreams No constipation No dizziness. No hallucinations-.- he used to have back pain [facility] Medical History (Updated 03/15/25 @ 11:58 by Darya Desir MD) Coarse tremors Osteoporosis Vitamin D deficiency Fatigue Skin cancer Hypertension History of prostate cancer Osteopenia Non-toxic multinodular goiter Primary hyperparathyroidism Surgical History Umbilical hernia (03/22/23) Hx of tooth extraction History of parathyroid surgery Status post surgical removal of malignant neoplasm of skin Hx of left knee surgery Hx of tonsillectomy Family History Father Hypertension Lung cancer Mother No problems noted. Brother Mental health disorder Social History Household Members Other:: Lives alone, 2 adult children in [facility], Housing: House Alcohol intake: never Patient Tobacco Use Status: Never used Tobacco e-Cigarette/Vaping Use: Never Used Current occupational status: retired Cognitive needs: No Hearing needs: Yes Vision needs: No Physical Exam Vital Signs: Last Vital Signs BP 142/90 H 03/15/25 11:18 BMI result Body Mass Index 31.0 Const General: cooperative, healthy appearing, comfortable and no acute distress Nutritional Appearance: average body habitus Orientation/consciousness: patient oriented x3 Eyes Pupils: Equal, round and reactive pupils present Neuro Other: mild intermittent left rest tremors Gait tsooped small steps , decreased arm swing left General: patient oriented x3, tone normal, moves all extremities and no focal motor deficits Cranial nerves: Yes Facial sensation intact/muscles of mastication intact, Yes Equal, round and reactive pupils present, Yes Bilaterally intact EOM present, Yes Nystagmus not present, Yes Normal facial strength present and Yes Midline tongue present Cognition (Neuro): normal cognition Motor exam (neuro): 5/5 motor strength present throughout and Normal motor musc le tone present throughout Deep tendon reflexes (DTR's): Right triceps reflex intensity grade: 1+, Left triceps reflex intensity grade: 1+, Rt Biceps (C5, C6): 1+, Left biceps reflex intensity grade: 1+, Right brachioradialis reflex intensity grade: 1+, Left brachioradialis reflex intensity grade: 1+, Right patellar reflex intensity grade: 3+ and Left patellar reflex intensity grade: 0 Coordination: [id number] test normal Assessment & Plan Assessment & Plan (1) Coarse tremors: Comment: Connie Parkinsons disease Code(s): G25.2 - Other specified forms of tremor Category: Medical Plan Demond Scan to confirm Parkinsons PT for gait training and balance will consider retrialing carbidopa/levodopa Orders: Orders PT Evaluation and Treatment Today G20.A1 - Parkinson's disease without dyskinesia, without mention of fluctuations Coding Level of Care Code New Pt Level 4 (69918) Complex EM visit Add On G2211 Diagnoses Coarse tremors G25.2
[2025-03-15 11:18] VITALS: BP 142/90; BMI 31.0
--- OUTSIDE RECORDS SUMMARY | 2025-03-15 12:26 | XMS_ITS | Clinical Summary ---
Author Organization [address] [place] [address] Address [address] [place] [address] Phone Care Team Providers Care Patient Support Specialist Name Role Phone Marilia Agarwal MD Primary Care Provider [phone] Allergies No known active allergies Medications valsartan (DIOVAN) 160 mg tablet Take 1 tablet (160 mg total) by mouth 1 (one) time each day. 12/05/2024 Active hydroCHLOROthiaz fish (HYDRODIURIL) 25 mg tablet Take 1 tablet (25 mg total) by mouth 1 (one) time each day. 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 (CMS/HCC V24, CMS/HCC V28) 12/28/2024 Basal cell carcinoma 12/28/2024 Epidermal inclusion cyst 12/28/2024 Encounters Date Type Department Care Team Description 02/01/2025 1:15 PM EDT Office Visit General Surgery [address] [place] [phone] Demian Muhammad, DO Melanoma in situ of torso excluding breast (CMS/HCC V24, CMS/HCC V28) (Primary Dx); Basal cell carcinoma (BCC) of skin of other part of torso; Epidermal inclusion cyst 01/18/2025 7:30 AM EDT - 01/18/2025 8:45 AM EDT Surgery [facility] Main OR [address] [place] [address] Demian Muhammad DO EXCISION MELANOMA LEFT UPPER CHEST; EXCISION BCC RIGHT UPPER BACK; excision of posterior neck epidermal inclusion cyst [70351 (CPT ) +1 more] 01/18/2025 6:49 AM EDT - 01/18/2025 8:47 AM EDT Hospital Encounter [facility] Main OR [address] [place] [address] Demian Muhammad, DO Melanoma in situ of torso excluding breast ([facility]/HCC V24, CMS/[facility] V28); Basal cell carcinoma (BCC) of skin of other part of torso; Epidermal inclusion cyst Discharge Disposition: Home or Self Care 01/01/2025 Telephone General Surgery [address] [address] Demian Muhammad, DO Prior Authorization (01/18/25 Dr. Demian Muhammad) 12/28/2024 1:00 PM EDT Consult [address] [address] Demian Muhammad, DO Melanoma in situ of torso excluding breast ([facility] V24, CMS/[facility] V28) (Primary Dx); Personal history of other malignant neoplasm of skin; Basal cell carcinoma (BCC) of skin of other part of torso; Epidermal inclusion cyst from Last 3 Months Social History Tobacco Use Types Packs/Day Years Used Date Smoking Tobacco: Never Tobacco Cessation:Counseling Given: Not Answered Alcohol Use Standard Drinks/Week Comments Not Currently 0 (1 standard drink = 0.6 oz pur e alcohol) Sex and Gender Information Value Date Recorded Sex Assigned at Male 01/14/2025 4:07 PM EDT Legal Sex Male 10:26 AM EDT Gender Identity Not on file Sexual Orientation Not on file Obstetrics History Last Filed Vital Signs Vital Sign Reading Time Taken Comments Blood Pressure 170/91 02/01/2025 1:06 PM EDT Pulse 56 02/01/2025 1:06 PM EDT Temperature 36.6 C (97.8 F) 02/01/2025 1:06 PM EDT Respiratory Rate 20 01/18/2025 8:00 AM EDT Oxygen Saturation 97% 01/18/2025 8:00 AM EDT Inhaled Oxygen Concentration - - Weight 94.3 kg (208 lb) 02/01/2025 1:06 PM EDT Height 172.7 cm (5' 8 ) 02/01/2025 1:06 PM EDT Body Mass Index 31.63 02/01/2025 1:06 PM EDT Plan of Treatment Health Maintenance Due Date Last Done Comments DTaP,Tdap,and Td Vaccines (1 - Tdap) 1959 Zoster Vaccines (1 of 2) 1959 RSV Immunization Adult Patients (1 - 1-dose 75+ series) 2016 Cholesterol Screening (Lipid Panel) 07/16/2024 Depression Screening 07/16/2024 Falls Risk Assessment 07/16/2024 Medicare Annual Wellness Visit 07/16/2024 Social Influencers of Health Screening 07/16/2024 COVID-19 Vaccine (7 - Pfizer risk 2023- season) 2024 06/12/2024, 07/01/2023, 01/06/2022, Additional history exists Influenza Vaccine Completed 06/12/2024, , 07/24/2022, Additional history exists Pneumococcal Vaccine: 50+ Years Completed 06/12/2024, 07/24/2022 HIB Vaccines Aged Out No longer eligi ble based on patient's age to complete this topic HPV Vaccines Aged Out No longer eligi ble based on patient's age to complete this topic Hepatitis A Vaccines Aged Out No long er eligible based on patient's age to complete this topic Hepatitis B Vaccines Aged Out No long er eligible based on patient's age to complete this topic IPV Vaccines Aged Out No longer eligi ble based on patient's age to complete this topic MMR Vaccines Aged Out No longer eligi ble based on patient's age to complete this topic Meningococcal ACWY Vaccine Aged Out N o longer eligible based on patient's age to complete this topic Meningococcal B Vaccine Aged Out No l onger eligible based on patient's age to complete this topic RSV Immunization Patients Under 20 months Aged Out No longer eligible based on patient's age to complete this topic Varicella Vaccines Aged Out No longer eligible based on patient's age to complete this topic Procedures Procedure Name Priority Date/Time Associated Diagnosis Comments TISSUE EXAM Routine 01/18/2025 7:54 AM EDT Melanoma in situ of torso excluding breast (CMS/HCC V24, CMS/HCC V28) Basal cell carcinoma (BCC) of skin of other part of torso Epidermal inclusion cyst IA EXCISION BENIGN LESION TRUNK/ARMS/LEGS 1.1 - 2.0 CM 01/18/2025 7:29 AM EDT Melanoma in situ of torso excluding breast (CMS/HCC V24, CMS/HCC V28) Basal cell carcinoma (BCC) of skin of other part of torso Epidermal inclusion cyst Special Needs Schedule in [facility] in [place] - Excision melanoma left upper chest; excision basal cell carcinoma right upper back; excision epidermal inclusion cyst posterior neck - asking 60 minutes IA EXCISION MALIGNANT LESION TRUNK/ARMS/LEGS 2.1 - 3.0 CM 01/18/2025 7:29 AM EDT Melanoma in situ of torso excluding breast (CMS/HCC V24, CMS/HCC V28) Basal cell carcinoma (BCC) of skin of other part of torso Epidermal inclusion cyst Special Needs Schedule in [facility] in [place] - Excision melanoma left upper chest; excision basal cell carcinoma right upper back; excision epidermal inclusion cyst posterior neck - asking 60 minutes from Last 3 Months Results * Tissue exam (01/18/2025 7:54 AM EDT) Final Diagnosis A. Skin, upper back-excision: -RESIDUAL JUNCTIONAL MELANOCYTIC PROLIFERATION CONSISTENT WITH HISTORY OF MELANOMA IN SITU -Deep and peripheral margins negative -Closest margin 6 o'clock, 3.8 mm B. Skin, posterior neck-excision: -EPIDERMAL INCLUSION CYST C. Skin, left chest-excision: -BASAL CELL CARCINOMA, NODULAR AND INFILTRATIVE TYPE -Deep margin positive for basal cell carcinoma -Peripheral margins negative 01/19/2025 10:56 AM EDT [facility] Comment A) See Inform Diagnostics [id number] 01/19/2025 10:56 AM EDT [facility] Gross Description A. Back, Upper, melanoma right medial 9 o'clock stitch: Labeled back U, melanoma . Received in formalin is a 5.9 x 2.4 cm oriented wright-white skin ellipse excised to depth of 1.5 cm. There is a suture on one tip designating 9:00 per the requisition. The epidermis displays a 1.6 x 1.3 cm faint wright-brown macule with an eccentric pink-white partially healed, partially crusted scar, located 0.5 cm from the 12:00 margin and 1.2 cm from the 6:00 margin. The 9-12-3 o'clock margin is inked blue, the 3-6-9 o'clock margin is inked black, and the epidermis of the 3:00 tip is inked green. The specimen is sectioned in a cruciate manner. Customer Engagement Manager sections, to include the entirety of the scar/macule, as follows: 1, cruciate 9:00 and 3:00 tips (3:00 epidermis inked green), two pieces 2-12, sequential cross-sections submitted from 3:00 to 9:00, one piece each B. Neck, posterior cyst: Labeled neck posterior . Received in formalin is a 1.6 x 0.8 x 0.3 cm previously disrupted wright-white fibromembranous tissue with scant attached possible wright-white friable substance. The specimen is bisected and fragments. The specimen is wrapped in paper and submitted in toto in one cassette, multiple pieces. C. Chest, Left, bcc upper medial 9 o'clock stitch: Labeled chest L . Received in formalin is a 4.4 x 2.5 cm oriented wright-white skin ellipse excised to a depth of 1.4 cm. There is a suture on one tip designating 9:00 per the requisition. The epidermis displays a 1.5 x 0.6 cm ulcerating granular pink-red lesion, located 0.6 cm from the 6:00 skin margin, and 0.1 cm from the 6 o'clock subcutaneous soft tissue margin. The 9-12-3 o'clock margin is inked blue, the 3-6-9 o'clock margin is inked black, and the epidermis of the 3:00 tip is inked green. The specimen is sectioned in a cruciate manner. Customer Engagement Manager sections are submitted, to include the entirety of the lesion, as follows: 1, cruciate 3 o'clock and 9:00 tips (3:00 epidermis inked green), two pieces 2-7, sequential transverse cross-sections from 3:00 to 9:00, one piece each SAMY 01/19/2025 10:56 AM [facility] Disclaimer Unless otherwise specified, all tissue is 10% NB formalin fixed and paraffin embedded. 01/19/2025 10:56 AM EDT [facility] Tissue Structure of upper back / Unknown 01/18/2025 7:54 AM EDT 01/18/2025 9:44 AM EDT Tissue specimen (specimen) Neck structure / Unknown 01/18/2025 8:03 AM EDT 01/18/2025 9:44 AM EDT Tissue specimen (specimen) Left thorax structure / Unknown 01/18/2025 8:22 AM EDT 01/18/2025 9:44 AM EDT us Demian Muhammad DO LAB PATHOLOGY ORDERABLES Final Result [facility] [address] [place] [address], from Last 3 Months Insurance [employer] [employer] [place] [id number] Care Teams Patient Support Specialist Relationship Specialty Start Date End Date Marilia Agarwal MD [address] [place] [address] PCP - General Internal Medicine 12/28/24
== END 2025-03-15 12:23 | disposition home or self-care (01) ==
LOC: HO.HSMS 10:57
PROVIDERS: PCP Internal Medicine; Visit Provider Psychiatry & Neurology Neurology
DX: G25.2 Other specified forms of tremor (principal)
CPT/HCPCS: 99204; G2211

== ENCOUNTER → 2025-03-15 10:56 | Outpatient (BNVA) | payer MEDICARE, SELFPAY | PROVIDERS: PCP Internal Medicine; Visit Provider Psychiatry & Neurology Neurology | DX: G25.2 Other specified forms of tremor (principal) | CPT/HCPCS: 99202 ==

== ENCOUNTER 2025-03-18 08:07 | Outpatient (REF) | payer MEDICARE, SELFPAY ==
--- NOTE | ~2025-03-18 | US_ITS ---
EXAMINATION: US LOWER EXTREMITY VENOUS (REFLUX EXAM), BILATERAL CLINICAL INFORMATION: Varices. COMPARISON: None. TECHNIQUE: Color flow triplex imaging and compression Doppler was performed to evaluate both the deep and the superficial systems bilaterally. To evaluate the superficial system, the examination was performed in the upright position. Color-flow Doppler ultrasound and compression ultrasound were utilized. In addition, maneuvers were utilized to demonstrate reflux. FINDINGS: 1. DEEP VENOUS ULTRASOUND OF THE RIGHT LOWER EXTREMITY: Common Femoral Vein: Compressible, normal respiratory variation and augmented flow. Femoral Vein: Compressible, normal color flow and augmentation. Popliteal Vein: Compressible, normal augmentation. Deep Reflux: There is no evidence of reflux in the deep system in either the common femoral vein, superficial femoral or the popliteal vein. There is no evidence of a Palomino's cyst. 2. SUPERFICIAL ULTRASOUND WITH DOPPLER OF RIGHT LOWER EXTREMITY: GREAT SAPHENOUS VEIN: Saphenofemoral Junction: 0.9 cm; Reflux: 0 ms Proximal Thigh: 0.3 cm; Reflux: 0 ms Mid Thigh: 0.3 cm; Reflux: 0 ms Distal Thigh: 0.3 cm; Reflux: 0 ms At Knee: 0.3 cm; Reflux: 0 ms Proximal Calf: 0.3 cm; Reflux: 0 ms Mid Calf: 0.2 cm; Reflux: 0 ms Distal Calf: 0.3 cm; Reflux: 0 ms DUPLICATED MEDIAL GREAT SAPHENOUS VEIN: Diameter: None imaged Reflux: NA DUPLICATED LATERAL GREAT SAPHENOUS VEIN: Diameter: None imaged Reflux: NA SMALL SAPHENOUS VEIN: Saphenopopliteal Junction: 0.2 cm; Reflux: 0 ms Proximal: 0.4 cm; Reflux: 0 ms Distal: 0.2 cm; Reflux: 0 ms VEIN OF GIACOMINI: Size: 0.2 cm Reflux: NA PERFORATORS: Location: Small saphenous vein, proximal segment. Great saphenous vein from the mid thigh to the proximal calf. Size: 0.2-0.3 cm. Reflux: NA VARICOSITIES: Location: Great saphenous vein proximal calf. Size: 0.3 cm. Reflux: NA 3. DEEP VENOUS ULTRASOUND OF THE LEFT LOWER EXTREMITY: Common Femoral Vein: Compressible, normal respiratory variation and augmented flow. Femoral Vein: Compressible, normal color flow and augmentation. Popliteal Vein: Compressible, normal augmentation. Deep Reflux: There is no evidence of reflux in the deep system in either the common femoral vein, superficial femoral or the popliteal vein. There is no evidence of a Palomino's cyst. 4. SUPERFICIAL ULTRASOUND WITH DOPPLER OF LEFT LOWER EXTREMITY: GREAT SAPHENOUS VEIN: Saphenofemoral Junction: 0.9 cm; Reflux: 0 ms Proximal Thigh: 0.4 cm; Reflux: 0 ms Mid Thigh: 0.3 cm; Reflux: 0 ms Distal Thigh: 0.3 cm; Reflux: 0 ms At Knee: 0.3 cm; Reflux: 0 ms Proximal Calf: 0.2 cm; Reflux: 0 ms Mid Calf: 0.2 cm; Reflux: 0 ms Distal Calf: 0.3 cm; Reflux: 0 ms DUPLICATED MEDIAL GREAT SAPHENOUS VEIN: Diameter: None imaged Reflux: NA DUPLICATED LATERAL GREAT SAPHENOUS VEIN: Diameter: 0.2 cm. Reflux: NA SMALL SAPHENOUS VEIN: Saphenopopliteal Junction: 0.2 cm; Reflux: 0 ms Proximal: 0.3 cm; Reflux: 0 ms Distal: 0.2 cm; Reflux: 0 ms VEIN OF GIACOMINI: Size: NA Reflux: NA PERFORATORS: Location: Small saphenous vein mid segment. Great saphenous vein proximal calf. Size: 0.1-0.2 cm. Reflux: NA VARICOSITIES: Location: None Imaged Size: NA Reflux: NA US/US venous duplex LE BI IMPRESSION: Right: No venous insufficiency. Varices and perforators without reflux.. Left: No venous insufficiency. No varices. Perforators without reflux. Electronically signed by: Fabian Sheehan MD 03/18/2025 09:09 AM EDT
--- OUTSIDE RECORDS SUMMARY | 2025-03-18 08:16 | XMS_ITS | Clinical Summary ---
Author Organization [address] [place] [address] Address [address] [place] [address] Phone Care Team Providers Care Salt Manager Name Role Phone Marilia Agarwal MD Primary Care Provider [phone] Allergies No known active allergies Medications valsartan [...] 1:15 PM EDT Office Visit General Surgery [address] [place] [phone] Demian Muhammad, DO Melanoma in situ of torso excluding breast (CMS/HCC V24, CMS/HCC V28) (Primary Dx); Basal cell carcinoma (BCC) of skin of other part of torso; Epidermal inclusion cyst 01/18/2025 7:30 AM EDT - 01/18/2025 8:45 AM EDT Surgery [facility] Main OR [address] [place] [address] Demian Muhammad DO EXCISION MELANOMA LEFT UPPER CHEST; EXCISION BCC RIGHT UPPER BACK; excision of posterior neck epidermal inclusion cyst [[id number] (CPT ) +1 more] 01/18/2025 6:49 AM EDT - 01/18/2025 8:47 AM EDT Hospital Encounter [facility] Main OR [address] [place] [address] Demian Muhammad, DO Melanoma in situ of torso excluding breast ([facility]/HCC V24, CMS/[facility] V28); Basal cell carcinoma (BCC) of skin of other part of torso; Epidermal inclusion cyst Discharge Disposition: Home or Self Care 01/01/2025 Telephone General Surgery [address] [address] Demian Muhammad, DO Prior Authorization (01/18/25 Dr. Demian Muhammad) 12/28/2024 1:00 PM EDT Consult [address] [address] Demian Muhammad, DO Melanoma in situ of torso excluding breast ([facility] V24, CMS/[facility] V28) (Primary Dx); Personal history of other [...] other part of torso Epidermal inclusion cyst [place] EXCISION BENIGN LESION TRUNK/ARMS/LEGS 1.1 - 2.0 CM 01/18/2025 7:29 AM EDT Melanoma in situ of torso excluding breast (CMS/HCC V24, CMS/HCC V28) Basal cell carcinoma (BCC) of skin of other part of torso Epidermal inclusion cyst Special Needs Schedule in [facility] in [place] - Excision melanoma left upper chest; excision basal cell carcinoma right upper back; excision epidermal inclusion cyst posterior neck - asking 60 minutes [place] EXCISION MALIGNANT LESION TRUNK/ARMS/LEGS 2.1 - 3.0 CM 01/18/2025 7:29 AM EDT Melanoma in situ of torso excluding breast (CMS/HCC V24, CMS/HCC V28) Basal cell carcinoma (BCC) of skin of other part of torso Epidermal inclusion cyst Special Needs Schedule in [facility] in [place] - Excision melanoma left upper chest; [...] -Peripheral margins negative 01/19/2025 10:56 AM EDT [facility] Comment A) See Inform Diagnostics [id number] 01/19/2025 10:56 AM EDT [facility] Gross Description A. Back, Upper, [...] specimen is sectioned in a cruciate manner. Neonatal Social Worker sections, to include the entirety of the [...] specimen is sectioned in a cruciate manner. Neonatal Social Worker sections are submitted, to include the entirety of the lesion, as follows: 1, cruciate 3 o'clock and 9:00 tips (3:00 epidermis inked green), two pieces 2-7, sequential transverse cross-sections from 3:00 to 9:00, one piece each SAMY 01/19/2025 10:56 AM [facility] Disclaimer Unless otherwise specified, all tissue is 10% NB formalin fixed and paraffin embedded. 01/19/2025 10:56 AM EDT [facility] Tissue Structure of upper back / Unknown 01/18/2025 7:54 AM EDT 01/18/2025 9:44 AM EDT Tissue specimen (specimen) Neck structure / Unknown 01/18/2025 8:03 AM EDT 01/18/2025 9:44 AM EDT Tissue specimen (specimen) Left thorax structure / Unknown 01/18/2025 8:22 AM EDT 01/18/2025 9:44 AM EDT us Demian Muhammad DO LAB PATHOLOGY ORDERABLES Final Result [facility] [address] [place] [address], from Last 3 Months Insurance [employer] [place] [id number] Care Teams Salt Manager Relationship Specialty Start Date End Date Marilia Agarwal MD [address] [place] [address] PCP - General Internal Medicine 12/28/24
== END 2025-03-18 08:08 | disposition home or self-care (01) ==
LOC: HO.US 08:07
PROVIDERS: PCP Internal Medicine; Visit Provider Surgery Vascular Surgery
DX: I83.12 Varicose veins of left lower extremity with inflammation (principal)
CPT/HCPCS: 93970

== ENCOUNTER → 2025-03-18 08:09 | Outpatient (BNV) | payer MEDICARE, SELFPAY | PROVIDERS: PCP Internal Medicine; Visit Provider Radiology Diagnostic Radiology | DX: I83.813 Varicose veins of bilateral lower extremities with pain (principal) | CPT/HCPCS: 93970 ==

== ENCOUNTER 2025-03-25 09:32 | Outpatient (AMB) | payer MEDICARE, SELFPAY ==
--- OUTSIDE RECORDS SUMMARY | 2025-03-22 10:30 | XMS_ITS ---
Author Organization [facility] Address [address] [place] [address] Care Team Providers Care Corncob Pipes Assembler Name Role Phone Marilia Agarwal MD Primary Care Provider Mattie Melton Unavailable [phone] Allergies Allergen (clinical drug ingredient) Drug/Non Drug Allergy documented on EMR Reaction Allergy Type Onset Date Status amlodipine amLODIPine Besylate fatigue Drug Allergy Active REASON FOR VISIT Painful nail(s) aggravated by shoes causing difficulty standing/walking Medications Medication SIG (Take, Route, Frequency, Duration) Notes Start Date End Date Status Fluorouracil 5 % External; Duration: 30 Days Active Calcium Citrate 250 MG 1 tablet Orally Once a day Active Vitamin D3 50 MCG (1999) as directed Orally Once a day Active LamISIL 250mg 1 tablet orally Once daily; Duration: 30 days Not-Taking Carbidopa-Levodopa 25-100 MG TAKE 1/2 TA BLET THREE TIMES ADAY FOR 2 WEEKS THEN 1 TABLET THREE TIMES A DAY NEEDED DIRECTED Oral; Duration: 37 Days Active Flaxseed Oil 1000 MG as directed Orally Active Glucosamine 500 MG 1 capsule with [...] Signs Height 5 ft 8 in in 03/22/2025 Weight 205 lbs 03/22/2025 BMI 31.17 kg/m2 03/22/2025 Blood pressure systolic 135 mm Hg 03/22/20 25 Blood pressure diastolic 80 mm Hg 025 Encounters Encounter Location Date Provider Diagnosis [facility] [address] [address] 03/22/2025 Mattie Kramer Pain in right toe(s) M79.674 ; Onychomycosis B35.1 and Pain in left toe(s) M79.675 Assessments Encounter Date Diagnosis (ICD Code) Assessment Notes Treatment Notes Treatment Clinical Notes Section Notes 03/22/2025 Pain in right toe(s) (ICD-10 - M79.674) 03/22/2025 Onychomycosis (ICD-10 - B35.1) 03/22/2025 Pain in left toe(s) (ICD-10 - M79.675) Plan Of Treatment Next Appt Details Follow Up: 3 Months, Reason: Provider Name:Mattie Apodaca Manuela zoraida, 2025 02:30:00 PM, [address] [place] [address], [phone], Procedure Notes * Category Sub-Category Detail Notes Debride Nail 6-10 Nail debridement Due to the cl inical pathology outlined in the exam findings, performance of this nail treatment is medically necessary as its management by an unskilled/untrained nonprofessional would put this patients foot and overall health at risk. Therefore, debridement to affected nail(s), as described in exam ( TA, T1, T2, T3, T4, T5, T6, T7, T8, T9, ), was performed exclusively by the physician of record to reduce/remove overall nail length, girth, thickness, subungual debris, and necrotic tissue, by manual and/or electrical means through the use of a nail nipper and/or dremel-type nut grinder, to a more viable healthy nail plate [...] to maintain effectiveness in symptomatic relief - 16485 Progress Notes * Jose Juan LOUISDOB: [birth year] (84 yo M)Acc No.[id number]:03/22/2025 Progress Note Patient: Jose Juan HENAO Provider: Connie Kramer DPM :1940 A ge:84 Y S ex:Male Date:03/22/2025 Address:[address] [place], [place] [id number] Pcp:Marilia Agarwal MD Subjective: * Chief Complaints: * P ainful nail(s) aggravated by shoes causing difficulty standing/walking * HPI: P ainful Nails: Pt States Last PCP Visit: D ate: 0 01/27/2025 * ROS: G eneral/Constitutional: Nausea d enies. V omiting d enies. H alex Thirst d enies. L oss appetite d enies. C hills d enies. F atigue d enies.?Fever d enies. N ight Sweats d enies. U nexplained weight loss d enies. U nexplained weight gain d enies. H EENTM: Dentures d enies. D izziness d enies. G lasses/contacts d enies. R etinopathy d enies. B lurred/double vision d enies. T MJ?denies. D ischarge/drainage d enies. I mplants d enies. S ore throat d enies. D ental implants d enies. H edwardo of hearing d enies. D ifficulty chewing/swallowing/speaking d enies. N ose bleeds d enies. S ore mouth d enies. ? R espiratory: On Oxygen d enies. P neumonia/pleurisy d enies.?Bronchitis d enies. E mphysema d enies. C oughing d enies. C ough blood?denies. S hortness of breath d enies. W heezing d enies. C ardiovascular: Pacemaker d enies. M MEDICAL OFFICE REP d enies. W PW d enies. C HF d enies. H eart attack d enies. S eptal defect d enies. R apid beat d enies. C hest pain d enies. A trial Fib. d enies. M urmur/Palpitations d enies. G astrointestinal: Hemorrhoids d enies. S tomach/Abdominal pain d enies. D ark blood stool d enies. I rritable bowel d enies. C onstipation d enies. D iarrhea d enies. H ematology: Swelling d enies. C lots d enies. V aricose Veins d enies. B ruising d enies. B leeding problem d enies. G enitourinary: Blood urine d enies. F requent/Painfu/urination/bladder control d enies. K idney stones d enies. I nfection (UTI) d enies. N ephropathy d enies. s ex trans dis (STD) d enies. P rostate d enies. M usculoskeletal: Hammertoes d enies. B unions d enies. B ack Pain d enies. M uscle Cramps/ Resting d enies. M uscle cramps / walking d enies.?Generalized aches and pains d enies. W eakness d enies. I nteg.: [place] d enies. S cars d enies. C orns/calluses?denies. I ngrown nails d enies. P ainful nails d enies. O pen Sores d enies. R ashes d enies. N eurologic: Difficulty sleeping d enies. B rain disorder d enies. N umbness d enies. B alance trouble d enies. C onfusion d enies. F ainting/blackouts d enies. T ingling d enies. T remors d enies. * Medical History: * Surgical History: p arathyroidectomy knee surgery, left tonsillectomy Tooth extraction umbilical hernia 03/22/2023removal of malignant neoplasm of skin left knee replacement 09/2019tumor removal- basal cell 08/16skin cancer removal 12/2024 * Hospitalization/Major Diagno stic Procedure: D enies Past Hospitalization * Family History: M other: , diagnosed with Unspecified cerebral artery occlusion with cerebral infarction. F ather: , lung cancer, diagnosed with Unspecified essential hypertension, Family history of arthritis. S iblings: Mental health disorder, diagnosed with Diabetic - NIDDM. per pt, many family members- heart attack. * Social History: T obacco Use: T obacco use other than smoking A re you an other tobacco user? N o Tobacco Control (Standard) T obacco use: N onsmoker A dditional Findings: Tobacco non-user C urrent nonsmoker D rugs/Alcohol: D rugs H ave you used drugs other than those for medical reasons in the past 12 months? N o M iscellaneous: C affeine: yes, 1-2 cups per day. Children: yes, 1. Exercise: no. Marital status: . Occupation: Retired, [employer] - [employer]. D rug/Alcohol: A NANCY-C (Standard) D id you have a drink containing alcohol in the past year? N o P oints 0 I nterpretation N egative * Medications: T akingValsartan 160 MG Tablet 1 tablet Orally Once [...] a day Fluorouracil 5 % Cream External Carbidopa-Levodopa 25-100 MG Tablet TAKE 1/2 TABLET THREE TIMES ADAY FOR 2 WEEKS THEN 1 TABLET THREE TIMES A DAY NEEDED DIRECTED Oral Taking Valsartan 160 MG Tablet 1 tablet [...] directed Orally Taking Vitamin D3 50 MCG (1999 [place]) Capsule as directed Orally Once a day Taking Calcium Citrate 250 MG Tablet 1 tablet Orally Once a day Taking Fluorouracil 5 % Cream External Taking Carbidopa- Levodopa 25-100 MG Tablet TAKE 1/2 TABLET THREE TIMES ADAY FOR 2 WEEKS THEN 1 TABLET THREE TIMES A DAY NEEDED DIRECTED Oral Not-Taking/PRNLamISIL 250mg tablet 1 tablet orally Once daily Medication List reviewed and reconciled with the patientNot-Taking/PRN LamISIL 250mg tablet 1 tablet orally Once daily Medication List reviewed and reconciled with the patient * Allergies: a mLODIPine Besylate: fatigueyes[Allergies Verified] Objective: * Vitals: H t: 5 ft 8 in, Wt: 205, BMI: 31.17, Shoe size: 10.5, BP: 135/80 mm Hg, Ht-cm: 172.72 cm, Wt-k.99 kg. * Examination: N ails: NAILS are: E longated, overgrown, dystrophic, lytic, greater than 3mm thick, discolored and friable with crumbly malodorous subungual debris, with pain on palpation, TA, T1, T2, T3, T4, T5, T6, T7, T8, T9. Assessment: * Assessment: 1. P ain in right toe(s) - M79.674 2 . O nychomycosis - B35.1 (Primary)? 3. P ain in left toe(s) - M79.675 Plan: * Treatment: * Procedures: D ebride Nail 6-10: Nail debridement D ue to the clinical pathology outlined in the exam findings, performance of this nail treatment is medically necessary as its management by an unskilled/untrained nonprofessional would put this patients foot and overall health at risk. Therefore, debridement to affected nail(s), as described in exam ( TA, T1, T2, T3, T4, T5, T6, T7, T8, T9, ), was performed exclusively by the physician of record to reduce/remove overall nail length, girth, thickness, subungual debris, and necrotic tissue, by manual and/or electrical means through the use of a nail nipper and/or dremel- type nut grinder, to a more viable healthy nail plate [...] to maintain effectiveness in symptomatic relief - 56807. * Procedure Codes: 1 1721 DEBRIDE NAIL, 6 OR MORE * Follow Up: 3 Months * Images: * Sign off status: Completed true * Provider: Connie Kramer, DPsAhleigh Date: 0 03/22/2025 Generated for Cherry tillman/Maria Elena/Sarah on: 0 03/25/2025 09:52 AM EDT History and Physical Notes * HPI (History of Present Illness) Category Sub-Category Detail Notes Category Not es Painful Nails Pt States Last PCP Visit: Date:: 01/27/2025 Examination Category Sub-Category Detail Notes Category Not es Nails NAILS are: Elongated, overg rown, dystrophic, lytic, greater than 3mm thick, discolored and friable with crumbly malodorous subungual debris, with pain on palpation, TA, T1, T2, T3, T4, T5, T6, T7, T8, T9
--- NOTE | 2025-03-25 09:32 | A.OFFVIS_ITS ---
Vital Signs 03/25/25 09:33 Height 5 ft 8 in Weight 204 lb BMI 31.0 Intake Visit Reasons: follow up s/p 03/18/25 Intake Note: Pt presents to the office today for a follow up s/p [facility] 03/18/25. Pt states his left leg is still worse than his right. Pt states he is still wearing compression stockings. Allergies amlodipine Adverse Reaction (Intermediate, Verified 03/25/25 09:33) fatigue HPI HPI follow up s/p [facility] 03/18/25: Details: Jace is presenting today on a follow up to , performed on 03/18. He does continue with pain/discomfort in the left lower extremity. He states the pain is relieved when wearing compression socks. He states he is currently being worked up to r/o Parkinson's due to a tremor of his left hand with increased weakness. He has no new concerns today. [facility] Medical History Coarse tremors Osteoporosis Vitamin D deficiency Fatigue Skin cancer Hypertension History of prostate cancer Osteopenia Non-toxic multinodular goiter Primary hyperparathyroidism Surgical History Umbilical hernia (03/22/23) Hx of tooth extraction History of parathyroid surgery Status post surgical removal of malignant neoplasm of skin Hx of left knee surgery Hx of tonsillectomy Family History Father Hypertension Lung cancer Mother No problems noted. Brother Mental health disorder Social History Household Members Other:: Lives alone, 2 adult children in [facility], Housing: House Alcohol intake: never Patient Tobacco Use Status: Never used Tobacco e-Cigarette/Vaping Use: Never Used Current occupational status: retired Cognitive needs: No Hearing needs: Yes Vision needs: No Review of Systems Const Reports as per HPI and Denies weakness ENT Reports Normal hearing present and Denies dizziness Card Reports as per HPI, Denies chest pain, Denies chest pain at rest, Denies chest pain with activity, Denies dyspnea and Denies dyspnea on exertion Resp Reports as per HPI, Denies cough, Denies dyspnea and Denies dyspnea on exertion GI Reports as per HPI, Denies abdominal pain, Denies nausea and Denies vomiting Musc Denies numbness Skin/Breast Reports as per HPI, Denies erythema and Denies wounds Neuro Reports Normal hearing present, Denies dizziness, Denies numbness, Denies Sensory deficit (Neuro) and Denies weakness Psych Reports no additional complaints Endo Reports no additional complaints Physical Exam Vital Signs: BMI result Body Mass Index 31.0 Const General: healthy appearing and no acute distress Orientation/consciousness: patient oriented x3 HEENT Head: Yes normal to inspection Ears: hearing grossly normal bilaterally Mouth: Normal oral and palatal mucosa present Resp Effort & Inspection: normal respiratory effort and able to speak in complete sentences Auscultation: clear to auscultation bilaterally Cardio Jugular venous distension: no JVD Rate: regular rate Rhythm: regular rhythm Heart sounds: S1 normal heart sound present and S2 normal heart sound present Bruits: no abdominal aortic bruits, no carotid bruits, no femoral bruits and no renal bruits Peripheral pulses: Peripheral pulses 2+ throughout GI Inspection: Yes normal to inspection Palpation (GI): No Abdominal aortic bruit present Skin General skin exam: no rashes or lesions noted Wounds: no wounds Hair: normal Neuro General: patient oriented x3 Cranial nerves: Yes Normal hearing present Cognition (Neuro): normal cognition Gait exam (Neuro): Normal gait present Motor exam (neuro): 5/5 motor strength present throughout Sensory Exam: No Sensory deficit (Neuro) Extrem Other: Left lower extremity: small rope like varicosity noted over the pre-tibial area, appx 2cm in length, not tender to palpation. Trace peripheral edema noted. General: Yes normal to inspection, Yes full ROM, Yes capillary refill normal and Yes normal gait Results Reviewed Results Reviewed: Brief summary of venous insufficiency testing is as follows: right great saphenous vein: negative right small saphenous vein: negative right accessory vein: none present left great saphenous vein: negative left small saphenous vein: negative left accessory vein: none present Please note there is no evidence of any venous aneurysms or significant tortuosity Assessment & Plan Assessment & Plan (1) Varicose veins of left lower extremity with inflammation: Code(s): I83.12 - Varicose veins of left lower extremity with inflammation Category: Medical Plan: Jace is presenting today on a follow up to US, performed on 03/18. The US was negative for insufficiency. He states he continues to wear his compression socks daily, sometimes 24/; he states the swelling and pain completely go away when he wears the socks all day. We discussed to continue with conservative measures. We discussed to take the socks off before bed; it is not necessary to wear them while sleeping. We discussed to try to walk/light physical activity; however, he has concerns with his balance. We discussed to reach back out to us if he has any other vascular concerns that arise. Thank you for allowing us to participate in the patient's care. If there are any questions or concerns, please do not hesitate to reach out to us. Coding Level of Care Code Est Pt Level 4 (18202) Diagnoses Varicose veins of left lower extremity with inflammation I83.12 Comment review of US
[2025-03-25 09:33] VITALS: BMI 31.0
--- OUTSIDE RECORDS SUMMARY | 2025-03-25 09:53 | XMS_ITS | Clinical Summary ---
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 (CMS/HCC V24, CMS/HCC V28) (Primary Dx); Basal cell carcinoma (BCC) of skin of other part of torso; Epidermal inclusion cyst 01/18/2025 7:30 AM EDT - 01/18/2025 8:45 AM EDT Surgery [facility] Main OR [address] [place] [address] Demian Muhammad DO EXCISION MELANOMA LEFT UPPER CHEST; EXCISION BCC RIGHT UPPER BACK; excision of posterior neck epidermal inclusion cyst [[id number] (CPT ) +1 more] 01/18/2025 6:49 AM EDT - 01/18/2025 8:47 AM EDT Hospital Encounter [facility] Main OR [address] [place] [address] Demian Muhammad, DO 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 (CMS/HCC V24, CMS/HCC V28) Basal cell carcinoma (BCC) of skin of other part of torso Epidermal inclusion cyst Special Needs Schedule in [facility] [place] - Excision melanoma left upper chest; excision basal cell carcinoma right upper back; excision epidermal inclusion cyst posterior neck - asking 60 minutes [place] EXCISION MALIGNANT LESION TRUNK/ARMS/LEGS 2.1 - 3.0 CM 01/18/2025 7:29 AM EDT 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 Comment A) See Inform Diagnostics [id number] 01/19/2025 10:56 AM EDT [facility] Gross Description A. Back, Upper, melanoma [...] specimen is sectioned in a cruciate manner. Plasterer Journeyman sections, to include the entirety of the [...] specimen is sectioned in a cruciate manner. Plasterer Journeyman sections are submitted, to include the entirety of the lesion, as follows: 1, cruciate 3 o'clock and 9:00 tips (3:00 epidermis inked green), two pieces 2-7, sequential transverse cross-sections from 3:00 to 9:00, one piece each SAMY 01/19/2025 10:56 AM [facility] Disclaimer Unless otherwise specified, all tissue is 10% NB formalin fixed and paraffin embedded. 01/19/2025 10:56 AM EDT [facility] ([facility]) [facility] Tissue Structure of upper back / Unknown 01/18/2025 7:54 AM EDT 01/18/2025 9:44 AM EDT Tissue specimen (specimen) Neck structure / Unknown 01/18/2025 8:03 AM EDT 01/18/2025 9:44 AM EDT Tissue specimen (specimen) Left thorax structure / Unknown 01/18/2025 8:22 AM EDT 01/18/2025 9:44 AM EDT us Demian Muhammad DO LAB PATHOLOGY ORDERABLES Final Result [facility] ([facility]) [facility] [address] [place] [address], from Last 3 Months Insurance [employer] [place] [id number] Deputy Relationship Specialty Start Date End Date Marilia Agarwal MD [address] [place] [address] PCP - General Internal Medicine 12/28/24
== END 2025-03-25 10:01 | disposition home or self-care (01) ==
LOC: HO.HVS 09:33
PROVIDERS: PCP Internal Medicine; Visit Provider Physician Assistant Surgical
DX: I83.12 Varicose veins of left lower extremity with inflammation (principal)
CPT/HCPCS: 99214

== ENCOUNTER → 2025-03-25 09:32 | Outpatient (BNVA) | payer MEDICARE, SELFPAY | PROVIDERS: PCP Internal Medicine; Visit Provider Physician Assistant Surgical | DX: M79.605 Pain in left leg (principal); M79.604 Pain in right leg; I83.12 Varicose veins of left lower extremity with inflammation | CPT/HCPCS: 99212 ==

== ENCOUNTER 2025-06-09 11:07 | Outpatient (AMB) | payer MEDICARE, SELFPAY ==
[2025-06-09 11:08] VITALS: BP 130/80; PULSE 58; RESP 19; TEMP 36.7; O2SAT 98; BMI 30.7
--- NOTE | 2025-06-09 11:08 | A.OFFPC_ITS ---
Vital Signs 06/09/25 11:08 Height 5 ft 8 in Weight 202 lb BMI 30.7 BP 130/80 Blood Pressure Location Lt brachial Position Sitting Respiration 19 Pulse 58 Pulse Source Pulse Oximeter Temp 98.1 F Temp Source Oral Pulse Oximetry (%) 98 Oxygen Delivery Method Room Air Intake Visit Reasons: Numbness Rt Hand Intake Note: Pt is here today for a sick visit. Pt c/o numbness in R palm of his hand. Allergies amlodipine Adverse Reaction (Intermediate, Verified 06/09/25 11:15) fatigue Medication List - Last Reconciled 06/09/25 by Marilia Agarwal MD calcium citrate 250 mg PO DAILY cholecalciferol (vitamin D3) 50 mcg PO DAILY 30 days flaxseed oil (Belcher-3 Flaxseed Oil) 1,000 mg PO DAILY glucosamine sulfate (Glucosamine) 500 mg PO DAILY hydrochlorothiazide 25 mg PO DAILY ibuprofen 800 mg PO QID PRN multivitamin 1 tab PO DAILY nifedipine ER 30 mg PO DAILY [tumeric PO] valsartan 160 mg PO BID vitamin C-vitamin E 500-400 mg-unit caps PO vitamins A,C,P-gojn-gleeci 4,296 mcg-226 mg-90 mg (PreserVision AREDS) 1 cap PO BID Tobacco use date assessed: 06/09/25 Fall risk assessment: 1 Fall in past year Last assessed Fall Risk: 06/09/25 Dental Screening Dental Screen Date: 06/09/25 Did you have a dental visit in the last 12 months?: Yes Did you have a dental problem in the last 6 months where you did not have access to dental care?: No Was dental information given to patient?: Patient has dentist HPI Numbness Rt Hand HPI Details Patient presents complaining of intermittent numbness and tingling sensation in the right hand worse when holding computer mouse for a long time. He reports intermittent weakness on and off for the last 2 months. Hypertension is controlled on current medications. Patient will have dopamine scan for possible Parkinson's disease. He is established with Neurology [facility] Medical History Coarse tremors Osteoporosis Vitamin D deficiency Fatigue Skin cancer Hypertension History of prostate cancer Osteopenia Non-toxic multinodular goiter Primary hyperparathyroidism Surgical History Umbilical hernia (03/22/23) Hx of tooth extraction History of parathyroid surgery Status post surgical removal of malignant neoplasm of skin Hx of left knee surgery Hx of tonsillectomy Family History Father Hypertension Lung cancer Mother No problems noted. Brother Mental health disorder Social History Household Members Other:: Lives alone, 2 adult children in [place] and [place], Housing: House Alcohol intake: never Patient Tobacco Use Status: Never used Tobacco e-Cigarette/Vaping Use: Never Used service: No Current occupational status: retired Cognitive needs: No Hearing needs: Yes Vision needs: No Questionnaire PHQ-9 Over the last 2 weeks, how often have you been bothered by any of the following problems? 1. Little interest or pleasure in doing things: not at all 2. Feeling down, depressed, or hopeless: not at all 3. Trouble falling or staying asleep, or sleeping too much: not at all 4. Feeling tired or having little energy: nearly every day 5. Poor appetite or overeating: not at all 6. Feeling bad about yourself - or that you are a failure or have let yourself or your family down: not at all 7. Trouble concentrating on things, such as reading the newspaper or watching television: not at all 8. Moving or speaking so slowly that other people could have noticed. Or the opposite - being so fidgety or restless that you have been moving around a lot m ore than usual: nearly every day 9. Thoughts that you would be better off or of hurting yourself in some way: not at all Total score: 6 Depression Screening Interpretation: Negative Depression Screening Done: Yes 70427 - PHQ-9 Billing: Yes Source: Developed by Drs. Stevo Meadows, Rosie Kincaid, Jeremiah Chin and colleagues, with an educational mandy from [employer]. Thrive Questionnaire Date Thrive assessed: 06/09/25 I am a: Patient What is your living situation today?: I choose not to answer this question Within the past 12 months, did the food you bought not last and you didn't have the money to get more?: Never true Within the past 12 months, did you worry whether your food would run out before you got money to buy more?: Never true Do you have trouble paying for medicines?: No Do you have trouble getting transportation to medical appointments?: No Do you have trouble paying your heating and electricity bill?: No Do you have trouble taking care of your child, family member or friend?: No Do you have trouble with day-to-day activities such as bathing, preparing meals, shopping, managing finances, etc.?: No Are you currently unemployed and looking for a job?: No Are you interested in more education?: No Please select the resources that you would like help with: None Currently or been in a relationship where the following occur: I choose not to answer THRIVE Score: 0 AUDIT C Alcohol Use Questionnaire (AUDIT-C) 1. How often do you have a drink containing alcohol?: Never 3. How often do you have six or more drinks on one occasion?: Never Total Score: 0 JERED-7 AMB Questionnaire JERED-7 Date JERED - 7 assessed: 06/09/25 Feeling nervous, anxious, or on edge: 0 = Not at all Not being able to stop or control worryin = Not at all Worrying too much about different things: 0 = Not at all Trouble relaxin = Not at all Being so restless that it is hard to sit still: 0 = Not at all Becoming easily annoyed or irritable: 0 = Not at all Feeling afraid as if something awful might happen: 0 = Not at all Total JERED-7 score (0-4 normal; 5-9 mild; 10-14 moderate; 15-21 severe): 0 Source: Developed by Drs. Stevo Meadows, Rosie Kincaid, Jeremiah Chin and colleagues, with an educational mandy from [employer]. JERED-7 Assessment Billing JERED-7 Assessment Tool: JERED-7 Assessment 67558 Review of Systems Const All systems reviewed & are unremarkable except as noted in HPI and below ENT Reports no additional complaints Card Reports no additional complaints Resp Reports no additional complaints GI Reports no additional complaints Reports no additional complaints Physical exam (Primary Care) Vital Signs: Last Vital Signs Temp 98.1 F 06/09/25 11:08 Pulse 58 06/09/25 11:08 Resp 19 06/09/25 11:08 BP 130/80 06/09/25 11:08 Pulse Ox 98 06/09/25 11:08 Oxygen Delivery Method Room Air 06/09/25 11:08 BMI result Body Mass Index 30.7 Tobacco/Smoking Status: Tobacco use Status Tobacco use date assessed 06/09/25 06/09/25 11:17 Patient Tobacco Use Status Never used Tobacco 06/09/25 11:17 e-Cigarette/Vaping Use Never Used 06/09/25 11:17 PHQ-9: PHQ-9 Score PHQ-9: Total score 6 06/09/25 11:21 Depression Screening Interpretation: Negative Thrive Assessment: Date of Thrive Assessment Date Thrive assessed 06/09/25 06/09/25 11:21 Currently or been in a relationship where the following occur: I choose not to answer Const General: no acute distress HENMT Head: Yes normal to inspection Ears: hearing grossly normal bilaterally Face and sinus: Yes normal facial exam Mouth: Normal oral and palatal mucosa present Eyes General: appearance normal, both eyes and all related structures Neck Neck: Yes no lymphadenopathy and Yes supple Resp Effort & Inspection: normal respiratory effort Auscultation: clear to auscultation bilaterally Cardio Rhythm: regular rhythm Heart sounds: S1 normal heart sound present and S2 normal heart sound present GI Inspection: Yes normal to inspection Palpation (GI): Soft to palpation Percussion: Yes normal to percussion Auscultation: normal bowel sounds Neuro Cranial nerves: Yes CN's II-XII intact bilaterally Gait exam (Neuro): Shuffling gait present Motor exam (neuro): 5/5 motor strength present throughout Romberg Test: Negative Coding Level of Care Code Est Pt Level 4 (31244) Diagnoses Right carpal tunnel syndrome G56.01 Hypertension I10 Vitamin D deficiency E55.9 Primary hyperparathyroidism E21.0 Poor balance R26.89 Additional Codes JERED-7 Assessment Billing - JERED-7 Assessment Tool: JERED-7 Assessment 35077 ([id number]) PHQ-9 - 59860 - PHQ-9 Billing: Yes ([id number]) Assessment & Plan Assessment & Plan (1) Right carpal tunnel syndrome: Code(s): G56.01 - Carpal tunnel syndrome, right upper limb Category: Medical Plan: Obtain EMG to evaluate for right carpal tunnel syndrome (2) Hypertension: Comment: AMLODIPINE CAUSED FATIGUE Code(s): I10 - Essential (primary) hypertension Category: Medical Plan: Continue current medications (3) Vitamin D deficiency: Code(s): E55.9 - Vitamin D deficiency, unspecified Category: Medical Plan: Continue vitamin-D supplement check the level (4) Primary hyperparathyroidism: Comment: S/P parathyroidectomy Code(s): E21.0 - Primary hyperparathyroidism Category: Medical Plan: Check calcium and PTH level (5) Poor balance: Comment: Follow-up with neurology, getting DA scan Code(s): R26.89 - Other abnormalities of gait and mobility Category: Medical Plan: Patient was advised to start home balance exercises and follow-up with Neurology, he declined referral to PT Orders: Orders NE electromyogram (EMG) Today G56.01 - Carpal tunnel syndrome, right upper limb Comprehensive [place]. Panel Fast 6 Months E21.0 - Primary hyperparathyroidism, E55.9 - Vitamin D deficiency, unspecified, I10 - Essential (primary) hypertension TSH reflex Free T4 6 Months E21.0 - Primary hyperparathyroidism, E55.9 - Vitamin D deficiency, unspecified, I10 - Essential (primary) hypertension Vitamin D 25-OH Total 6 Months E21.0 - Primary hyperparathyroidism, E55.9 - Vitamin D deficiency, unspecified, I10 - Essential (primary) hypertension Vitamin B12 and Folate 6 Months E21.0 - Primary hyperparathyroidism, E55.9 - Vitamin D deficiency, unspecified, I10 - Essential (primary) hypertension Parathyroid Hormone Intact Today E21.0 - Primary hyperparathyroidism NE nerve conduction velocity Today G56.01 - Carpal tunnel syndrome, right upper limb Complete Blood Count Auto Diff 6 Months E21.0 - Primary hyperparathyroidism, E55.9 - Vitamin D deficiency, unspecified, I10 - Essential (primary) hypertension Lipid Panel 6 Months E21.0 - Primary hyperparathyroidism, E55.9 - Vitamin D deficiency, unspecified, I10 - Essential (primary) hypertension
--- OUTSIDE RECORDS SUMMARY | 2025-06-09 14:21 | XMS_ITS | Clinical Summary ---
Author Organization [address] [place] [address] Address [address] [place] [address] Phone Care Team Providers Care Recruiter Name Role Phone Marilia Agarwal MD Primary Care Provider [phone] Allergies No known active allergies Medications valsartan (DIOVAN) 160 mg tablet Take 1 tablet (160 mg total) by mouth 1 (one) time each day. 12/05/2024 Active hydroCHLOROthiaz fish (HYDRODIURIL) 25 mg tablet Take 1 tablet (25 mg total) by mouth 1 (one) time each day. 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 ([facility] V24, [facility] V28) 12/28/2024 Basal cell carcinoma 12/28/2024 Epidermal inclusion cyst 12/28/2024 Social History Tobacco Use Types Packs/Day Years [...] series) 2016 Cholesterol Screening (Lipid Panel) 07/16/2024 Falls Risk Assessment 07/16/2024 Medicare Annual Wellness Visit 07/16/2024 Social Influencers of Health Screening 07/16/2024 Depression Screening 09/23/2024 COVID-19 Vaccine (7 - Pfizer risk season) 2025 06/12/2024, 07/01/2023, 01/06/2022, Additional history exists Influenza Vaccine (#1) 2025 , 07/01/2023, 07/24/2022, Additional history exists Pneumococcal Vaccine: 50+ [...] on patient's age to complete this topic Insurance [employer] Care Teams Recruiter Relationship Specialty Start Date End Date Marilia Agarwal MD [address] [place] [address] PCP - General Internal Medicine 12/28/24
--- OUTSIDE RECORDS SUMMARY | 2025-06-09 14:22 | XMS_ITS | Patient Health Record ---
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) Diagnosis 2 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) Diagnosis 3 Neuropathy (G62.9) Diagnosis 4 Pain in left toe(s) (M79.675) Diagnosis 5 Pain in right toe(s) (M79.674) Diagnosis 6 Tinea unguium (B35.1 ) Referring Provider First Name Marilia Referring Provider Last Name Stefano John [facility] Referred Provider Mattie Kramer Referred Address [address] [place], [place],[address], Referred Provider Specialty Podiatry Referral Priority Routine [...] in morning Orally Once a day Active LamISIL 250mg 1 tablet orally Once daily; Duration: 30 days Not-Taking Valsartan 160 MG 1 tablet Orally Once a day Active Carbidopa-Levodopa 25-100 MG TAKE 1/2 TA BLET THREE TIMES ADAY FOR 2 WEEKS THEN 1 TABLET THREE TIMES A DAY NEEDED DIRECTED Oral; Duration: 37 Days Active Immunizations Vaccine Route Administration Date Status Comme nts Influenza Unknown 07/15/2024 Administered Social History Tobacco Use: Social History Observation [...] Problem Status W/U Status Risk Notes Problem Bilateral peripheral neuropathy of lower limbs (37648981826104 108) Neuropathy (G62.9) Active confirmed Problem Green's neuroma of right foot (76326650453388 8) 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) Active confirmed Problem Green's neuroma of left foot (04107506654819 5) 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) Active confirmed Vital Signs Blood pressure diastolic 80 mm Hg 03/22/2025 Height 5 ft 8 in in 03/22/2025 Blood pressure systolic 135 mm Hg 03/22/2025 Weight 205 lbs 03/22/2025 BMI 31.17 kg/m2 03/22/2025 Encounters Encounter Location Date Provider Diagnosis [address] [address] 06/18/2024 Mattie Kramer Green's neuroma of left foot G57.62 ; Green's neuroma of right foot G57.61 ; Neuropathy G62.9 and Tinea unguium B35.1 [facility] [address] 08/27/2024 Mattie Kramer Green's neuroma of left foot G57.62 ; Green's neuroma of right foot G57.61 ; Neuropathy G62.9 ; Tinea unguium B35.1 ; Pain in right toe(s) M79.674 and Pain in left toe(s) M79.[address] [address] 11/02/2024 Mattie Perica Neuropathy G62.9 ; Tinea unguium B35.1 ; Pain in right toe(s) M79.674 and Pain in left toe(s) M79.[address] [address] 01/11/2025 Mattie Perica Neuropathy G62.9 ; Tinea unguium B35.1 ; Pain in right toe(s) M79.674 and Pain in left toe(s) M79.[address] [address] 03/22/2025 Mattie Perica Pain in right toe(s) M79.674 ; Onychomycosis B35.1 and Pain in left toe(s) M79.675 Assessments Encounter Date Diagnosis (ICD Code) Assessment Notes Treatment Notes Treatment Clinical Notes Section Notes 06/18/2024 Green's neuroma of right foot (ICD-10 - G57.61) 06/18/2024 Green's neuroma of left foot (ICD-10 - G57.62) 08/27/2024 Green's neuroma of right foot (ICD-10 - G57.61) 08/27/2024 Green's neuroma of left foot (ICD-10 - G57.62) 11/02/2024 Tinea unguium (ICD-10 - B35.1) 11/02/2024 Neuropathy (ICD-10 - G62.9) 01/11/2025 Tinea unguium (ICD-10 - B35.1) 01/11/2025 Neuropathy (ICD-10 - G62.9) 03/22/2025 Pain in right toe(s) (ICD-10 - M79.674) 03/22/2025 Onychomycosis (ICD-10 - B35.1) 11/02/2024 Pain in right toe(s) (ICD-10 - M79.674) 01/11/2025 Pain in right toe(s) (ICD-10 - M79.674) 06/18/2024 Neuropathy (ICD-10 - G62.9) 08/27/2024 Neuropathy (ICD-10 - G62.9) 06/18/2024 Tinea unguium (ICD-10 - B35.1) 08/27/2024 Tinea unguium (ICD-10 - B35.1) 11/02/2024 Pain in left toe(s) (ICD-10 - M79.675) 01/11/2025 Pain in left toe(s) (ICD-10 - M79.675) 03/22/2025 Pain in left toe(s) (ICD-10 - M79.675) 08/27/2024 Pain in right toe(s) (ICD-10 - M79.674) 08/27/2024 Pain in left toe(s) (ICD-10 - M79.675) Plan Of Treatment Pending Test Test Name Order Date *Liver Function Test (LFT) 01/27/2024 *Liver Function Test (LFT) 04/06/2024 Next Appt Details Provider Name:Mattie conway, 2025 02:30:00 PM, [address] [facility], [place], [address], Insurance Providers Payer Name Payer Address Payer Phone Subscriber Number Group Number Insured Name Patient Relationship to Insured Coverage Start Date Coverage End Date [facility] [address] [place] [phone] [id number] Jose Juan Sen Self - patient is the insured Medical (General) History Medical History History ICD Code fatigue prostate cancer Hypertension Osteopenia Osteoporosis Hyperparathyroidism skin cancer Vitamin D deficiency Non-toxic multinodular goiter Back,Hip,and Knee pain Broken bones Cancer Macular degeneration Parkinsons disease Surgical History Surgery Date(Month/Year) parathyroidectomy knee surgery, left tonsillectomy Tooth extraction umbilical hernia 03/22/2023 removal of malignant neoplasm of skin left knee replacement 09/2019 tumor removal- basal cell 08/16 skin cancer removal 12/2024
== END 2025-06-09 12:03 | disposition home or self-care (01) ==
LOC: HO.HMCC 11:07
PROVIDERS: PCP Internal Medicine; Visit Provider Internal Medicine
DX: G56.01 Carpal tunnel syndrome, right upper limb (principal); I10 Essential (primary) hypertension; E55.9 Vitamin D deficiency, unspecified; E21.0 Primary hyperparathyroidism; R26.89 Other abnormalities of gait and mobility

== ENCOUNTER → 2025-06-09 11:07 | Outpatient (BNVA) | payer MEDICARE, SELFPAY | PROVIDERS: PCP Internal Medicine; Visit Provider Internal Medicine | DX: G56.01 Carpal tunnel syndrome, right upper limb (principal); I10 Essential (primary) hypertension; E55.9 Vitamin D deficiency, unspecified; E21.0 Primary hyperparathyroidism; R26.89 Other abnormalities of gait and mobility | CPT/HCPCS: 96127; 99212 ==

== ENCOUNTER 2025-09-14 08:05 | Outpatient (REF) | payer MEDICARE, SELFPAY ==
--- OUTSIDE RECORDS SUMMARY | 2025-06-21 09:30 | XMS_ITS ---
Author Organization [facility] Address [address] [place] [address] Care Team Providers Care Sample Box Maker Name Role Phone Stefano CALDERÓN, Marilia Primary Care Provider Mattie Melton [phone] Encounters Encounter Location Date Provider Diagnosis [address] [address] 2025 Mattie Kramer Plan Of Treatment Next Appt Details Provider Name:Mattie conway, 11/11/2025 02:30:00 PM, [address] [place] [address], [place], [address], Progress Notes * Jose Juan LOUISDOB: [birth year] (85 yo M)Acc No.[id number] Progress Note Patient: Jose Juan HENAO Provider: Connie Kramer DPM :1940 A ge:85 Y S ex:Male Date:2025 Address:[address] [place], [place] [id number] Pcp:Marilia Agarwal MD Subjective: * Chief Complaints: * * Medical History: Objective: * Vitals: Assessment: Plan: * Treatment: * Images: * The named appointment provid er may or may not be the originator of this progress note, and it is not deemed complete until electronically signed by the appointment provider. Sign off status: Pending * Provider: Connie Kramer DPM Date: 0 2025 Generated for Cherry tillman/Maria Elena/Sarah on: 1 11/15/2024 08:09 AM EST
--- NOTE | 2025-09-14 08:08 | EMG_ITS ---
Chief complaint: Right hand pain Referred by: Tg Agarwal MD Procedure done: NCS and EMG right upper extremity Right median and ulnar motor studies were performed. Right median and ulnar mixed sensory studies were performed and radial sensory study was performed and needle examination was performed. Findings: Right median motor distal latencies was moderately prolonged. Similar pattern was noted with right median mixed distal latencies with mild slowing of conduction velocity but significant reduction of amplitude. Right ulnar motor study revealed slight reduction of amplitude across elbow and moderate slowing with moderately delayed ulnar mixed sensory distal latencies significant reduction of amplitude and mild slowing of conduction velocity. Impression: 1. Ulhu-di-hjnjxrym right median neuropathy across carpal tunnel 2. Dmba-la-fsfzdmvl right ulnar neuropathy across cubital tunnel [place] [id number] [facility]
--- OUTSIDE RECORDS SUMMARY | 2025-09-14 08:09 | XMS_ITS | Clinical Summary ---
Author Organization [address] [facility] Address [address] [place] [address] Phone Care Team Providers Care Safety Coordinator Name Role Phone Marilia Agarwal MD Primary Care Provider [phone] Allergies No known active allergies Medications valsartan (DIOVAN) 160 mg tablet Take 1 tablet (160 mg total) by mouth 1 (one) time each day. 12/05/2024 Active hydroCHLOROthiaz fish (HYDRODIURIL) 25 mg tablet Take 1 tablet (25 mg total) by mouth 1 (one) time each day. 10/12/2024 Active Active Problems Problem Noted Date Diagnosed Date Melanoma in situ of torso excluding breast 12/28 Basal cell carcinoma 12/28/2024 Epidermal inclusion cyst [...] on file Sexual Orientation Not on file Last Filed Vital Signs Vital Sign Reading [...] Screening 07/16/2024 Depression Screening 09/23/2024 COVID-19 Vaccine ( season) 2025 06/12/2024, 07/01/2023, 01/06/2022, Additional history exists Influenza Vaccine (#1) 2025 , 07/01/2023, 07/24/2022, Additional history exists Skin Cancer Screening 06/29/2025 Pneumococcal Vaccine: 50+ Years Completed 06/12/2024, 07/24/2022 [...] Insurance [employer] Care Teams Safety Coordinator Relationship Specialty Start Date End Date Marilia Agarwal MD [address] [place] [address] PCP - General Internal Medicine 12/28/24
--- OUTSIDE RECORDS SUMMARY | 2025-09-14 08:10 | XMS_ITS | Patient Health Record ---
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 Name Role Phone Marilia Agarwal MD Primary Care Provider Mattie Melton Unavailable [phone] Allergies Allergen (clinical drug ingredient) Drug/Non Drug [...] Referring Provider Last Name Stefano Referred Organization [facility] Referred Provider Mattie Kramer Referred Address [address] [place], [place],[address], Referred Provider Specialty Podiatry Referral Priority Routine Medications Medication SIG (Take, Route, Frequency, Duration) Notes Start Date End Date Status Turmeric Active Calcium Citrate 250 MG 1 tablet Orally Once a day Active Fluorouracil 5 % External; Duration: 30 Days Active Valsartan 160 MG 1 tablet Orally Once a day Active Carbidopa-Levodopa 25-100 MG TAKE 1/2 TA BLET THREE TIMES ADAY FOR 2 WEEKS THEN 1 TABLET THREE TIMES A DAY NEEDED DIRECTED Oral; Duration: 37 Days Not-Taking hydroCHLOROthiazide 25 MG 1 tablet in th e morning Orally Once a day Active LamISIL 250mg 1 tablet orally Once daily; Duration: 30 days Not-Taking Multivitamin Active Glucosamine 500 MG 1 capsule with a meal Orally Three times a day Active Flaxseed Oil 1000 MG as directed Orally Active Vitamin D3 50 MCG (1999 UT) as directed Orally Once a day Active PreserVision AREDS - as directed Orally Active Vitamin C & E Complex Active Immunizations Vaccine Route Administration Date Status Comme nts Influenza Unknown 07/15/2024 Administered Influenza Unknown 07/26/2025 Administered Social History Tobacco Use: Social History [...] Problem Bilateral peripheral neuropathy of lower limbs (18280938543824 108) Neuropathy (G62.9) Active confirmed Problem Green's neuroma of right foot (53362759183175 8) 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) Active confirmed Problem Green's neuroma of left foot (98269936579509 5) 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) Active confirmed Vital Signs Blood pressure diastolic 80 mm Hg 08/09/2025 Height 5 ft 8 in in 08/09/2025 Blood pressure systolic 131 mm Hg 08/09/2025 Weight 200 lbs 08/09/2025 BMI 30.41 kg/m2 08/09/2025 Encounters Encounter Location Date Provider Diagnosis [address] [address] 11/02/2024 Mattie Perica Neuropathy G62.9 ; Tinea unguium B35.1 ; Pain in right toe(s) M79.674 and Pain in left toe(s) M79.[address] [facility] [address] 01/11/2025 Mattie Perica Neuropathy G62.9 ; Tinea unguium B35.1 ; Pain in right toe(s) M79.674 and Pain in left toe(s) M79.[address] [facility] [address] 03/22/2025 Mattie Perica Pain in right toe(s) M79.674 ; Onychomycosis B35.1 and Pain in left toe(s) M79.[address] [address] 08/09/2025 Mattie Perica Pain in right toe(s) M79.674 ; Onychomycosis B35.1 and Pain in left toe(s) M79.675 [facility] [address] [place] [address] 06/17/2025 Mattie Perica Assessments Encounter Date Diagnosis (ICD Code) Assessment Notes Treatment Notes Treatment Clinical Notes Section Notes 11/02/2024 Tinea unguium (ICD-10 - B35.1) 11/02/2024 Neuropathy (ICD-10 - G62.9) 01/11/2025 Tinea unguium (ICD-10 - B35.1) 01/11/2025 Neuropathy (ICD-10 - G62.9) 03/22/2025 Pain in right toe(s) (ICD-10 - M79.674) 08/09/2025 Pain in right toe(s) (ICD-10 - M79.674) 08/09/2025 Onychomycosis (ICD-10 - B35.1) 03/22/2025 Onychomycosis (ICD-10 - B35.1) 11/02/2024 Pain in right toe(s) (ICD-10 - M79.674) 01/11/2025 Pain in right toe(s) (ICD-10 - M79.674) 11/02/2024 Pain in left toe(s) (ICD-10 - M79.675) 01/11/2025 Pain in left toe(s) (ICD-10 - M79.675) 08/09/2025 Pain in left toe(s) (ICD-10 - M79.675) 03/22/2025 Pain in left toe(s) (ICD-10 - M79.675) Plan Of Treatment Pending Test Test Name Order Date *Liver Function Test (LFT) 01/27/2024 *Liver Function Test (LFT) 04/06/2024 Next Appt Details Provider Name:Mattie conway, 11/11/2025 02:30:00 PM, [address] [facility], [place], [address], Insurance Providers Payer Name Payer Address Payer Phone Subscriber Number Group Number Insured Name Patient Relationship to Insured Coverage Start Date Coverage End Date [facility] [address] [place] [phone] [id number] Jose Juan Sen Self - patient is [...]
== END 2025-09-14 08:06 | disposition home or self-care (01) ==
LOC: HO.NEURO 08:05
PROVIDERS: PCP Internal Medicine; Visit Provider Internal Medicine
DX: G56.01 Carpal tunnel syndrome, right upper limb (principal)
CPT/HCPCS: 95886; 95909

== ENCOUNTER → 2025-09-14 08:08 | Outpatient (BNV) | payer MEDICARE, SELFPAY | PROVIDERS: PCP Internal Medicine; Visit Provider Psychiatry & Neurology Neurology | DX: G56.01 Carpal tunnel syndrome, right upper limb (principal) | CPT/HCPCS: 95886; 95909 ==